=== PATIENT | male | born 1950 | race Caucasian/White ===

== ENCOUNTER 2016-09-15 16:28 | Emergency (ER) | payer OTHER ==
[~2016-09-15] VITALS: Ht 182.9 cm; Wt 120.2 kg
[2016-09-15 16:29] VITALS: BP 133/72
[2016-09-15] MEDS ORDERED: ATRO0.063 INH (16:46)
[2016-09-15] MEDS ORDERED: BUPR150T3 PO (16:46)
[2016-09-15] MEDS ORDERED: HYDR25TAB PO (16:46)
[2016-09-15] MEDS ORDERED: GLIP5TAB8 PO (16:46)
[2016-09-15] MEDS ORDERED: GABA-282 PO (16:46)
[2016-09-15] MEDS ORDERED: ASPI325T PO (16:46)
[2016-09-15] MEDS ORDERED: ATOR1TAB18 PO (16:46)
--- NOTE | 2016-09-15 19:50 | REPUSA ---
CT of the head Clinical history: injury. Technique: Multiple axial CT images were obtained through the head without administration of contrast . Findings: The ventricles and sulci are symmetric bilaterally. There is no evidence of acute hemorrhag e or infarct. There is no midline shift, mass effect, or extra-axial fluid collection. The osseous st ructures are unremarkable. The visualized paranasal sinuses and mastoid air cells are clear. Impression: Negative study.
== END 2016-09-15 22:37 | disposition left against medical advice (07) ==
LOC: M ED 18:41
DX: R47.81 Slurred speech (principal); R20.2 Paresthesia of skin

== ENCOUNTER → 2017-11-13 | Outpatient (CLI) | payer OTHER | LOC: M PLARAD 08:52 | DX: R47.1 Dysarthria and anarthria (principal); K11.7 Disturbances of salivary secretion | CPT/HCPCS: 70553 ==

== ENCOUNTER 2017-12-03 16:12 | Inpatient (IN) | payer OTHER ==
[2017-12-03 16:51] LABS: BASO # 0.1 10^3/uL (0.0-0.2); BASO % 0.6 % (0.0-1.0); EOS # 0.3 10^3/uL (0.0-0.50); HEMATOCRIT 45.3 % (42.0-52.0); HEMOGLOBIN 14.8 g/dl (13.5-17.5); IMMATURE GRANULOCYTE % 0.4 % (0-3.0); LYMPH # 1.8 10^3/uL (1.5-4.5); LYMPH % 18.2 % (24.0-44.0); MEAN CORPUSCULAR HEMOGLOBIN 27.3 pg (27.0-33.0); MEAN CORPUSCULAR HGB CONC 32.7 g/dl (32.0-36.5); MEAN CORPUSCULAR VOLUME 83.4 fl (80.0-96.0); MONO # 0.6 10^3/uL (0.0-0.8); MONO % 5.6 % (0.0-5.0); NEUTROPHILS # 7.2 10^3/uL (1.8-7.7); NEUTROPHILS % 72.2 % (36.0-66.0); PLATELET COUNT, AUTOMATED 164 10^3/uL (150-450); RED BLOOD COUNT 5.43 10^6/uL (4.30-6.10); RED CELL DISTRIBUTION WIDTH 14.7 % (11.5-14.5)
[2017-12-03] MEDS: METOPROLOL 5 MG/5 ML VIAL IV ×3 (17:10→17:21)
[2017-12-03 17:11] LABS: ALBUMIN 3.6 GM/DL (3.2-5.2); ALBUMIN/GLOBULIN RATIO 1.13 (1.00-1.93); ALKALINE PHOSPHATASE 52 U/L (45-117); ALT/SGPT 31 U/L (12-78); ANION GAP 11 MEQ/L (8-16); AST/SGOT 17 U/L (7-37); BILIRUBIN,DIRECT < 0.1 MG/DL (0.0-0.2); BILIRUBIN,TOTAL 0.3 MG/DL (0.2-1.0); BLOOD UREA NITROGEN 22 MG/DL (7-18); CALCIUM LEVEL 9.3 MG/DL (8.8-10.2); CARBON DIOXIDE LEVEL 26 MEQ/L (21-32); CHLORIDE LEVEL 104 MEQ/L (98-107); CPK CREATINE PHOSPHOKINASE 163 U/L (39-308); CREATININE FOR GFR 1.06 MG/DL (0.70-1.30); FREE T4 0.85 NG/DL (0.76-1.46); GLOMERULAR FILTRATION RATE > 60.0 (>49); GLUCOSE, FASTING 157 MG/DL (70-100); SODIUM LEVEL 141 MEQ/L (136-145); TOTAL PROTEIN 6.8 GM/DL (6.4-8.2); TROPONIN I < 0.02 NG/ML (< 0.10)
[2017-12-03 17:14] LABS: INR 1.01; PROTHROMBIN TIME 13.4 SECONDS (12.1-14.4)
[2017-12-03 17:15] LABS: PARTIAL THROMBOPLASTIN TIME 31.4 SECONDS (25.4-37.6)
[2017-12-03] MEDS: METOPROLOL TART 25 MG TABLET PO (17:39)
[2017-12-03 17:41] LABS: CK-MB VALUE MASS 3.2 NG/ML (<3.6); MB/CK RELATIVE INDEX 1.96 (< OR =4); NT-PRO BNP 208 PG/ML (<125); THYROID STIMULATING HORMONE 0.827 uIU/ML (0.358-3.740)
[2017-12-03] MEDS: DIGOXIN INJ 0.5 MG/2 ML AMP (J1160) IV (18:48)
[2017-12-03] MEDS ORDERED: GLUCOSE 4 GM CHEW TABLET PO (20:00)
[2017-12-03] MEDS ORDERED: ACETAMINOPHEN TAB 650MG DOSE (2X325MG) PO (20:00)
[2017-12-03] MEDS ORDERED: DEXTROSE 50% 50 ML SYRINGE IV (20:00)
[2017-12-03] MEDS ORDERED: ONDANSETRON 4MG/2ML VIAL (J2405) IV (20:00)
[2017-12-03] MEDS ORDERED: IPRATROPIUM 0.5MG/ALBUTEROL 2.5MG INH SOL UD 3ML (DUONEB)(J7620) NEB (20:00)
[2017-12-03] MEDS ORDERED: GLUCAGON FOR INJ 1 MG VIAL (J1610) SC (20:00)
[2017-12-03] MEDS: DOCUSATE SODIUM 100 MG CAP PO (21:00)
[2017-12-03] MEDS: APIXABAN 5 MG TAB (ELIQUIS) PO (21:00)
[2017-12-03] MEDS: HumaLOG INSULIN (NovoLOG) PER UNIT SC (21:00)
[2017-12-03 21:45] LABS: BEDSIDE GLUCOSE 144 MG/DL (80-115)
[2017-12-04] MEDS: LORazepam 2 MG/ML VIAL (J2060) IV (01:08)
[2017-12-04 02:23] LABS: CK-MB VALUE MASS 2.8 NG/ML (<3.6); CPK CREATINE PHOSPHOKINASE 162 U/L (39-308); MB/CK RELATIVE INDEX 1.72 (< OR =4); TROPONIN I < 0.02 NG/ML (< 0.10)
[2017-12-04 04:29] LABS: BASO # 0.1 10^3/uL (0.0-0.2); BASO % 0.8 % (0.0-1.0); EOS # 0.4 10^3/uL (0.0-0.50); EOS % 4.1 % (0.0-3.0); HEMATOCRIT 44.5 % (42.0-52.0); HEMOGLOBIN 14.5 g/dl (13.5-17.5); IMMATURE GRANULOCYTE % 0.4 % (0-3.0); LYMPH # 2.1 10^3/uL (1.5-4.5); LYMPH % 19.9 % (24.0-44.0); MEAN CORPUSCULAR HEMOGLOBIN 27.2 pg (27.0-33.0); MEAN CORPUSCULAR HGB CONC 32.6 g/dl (32.0-36.5); MEAN CORPUSCULAR VOLUME 83.5 fl (80.0-96.0); MONO # 0.7 10^3/uL (0.0-0.8); MONO % 7.1 % (0.0-5.0); NEUTROPHILS % 67.7 % (36.0-66.0); PLATELET COUNT, AUTOMATED 156 10^3/uL (150-450); RED BLOOD COUNT 5.33 10^6/uL (4.30-6.10); RED CELL DISTRIBUTION WIDTH 14.7 % (11.5-14.5); WHITE BLOOD COUNT 10.3 10^3/uL (4.0-10.0)
[2017-12-04 04:47] LABS: ANION GAP 7 MEQ/L (8-16); BLOOD UREA NITROGEN 22 MG/DL (7-18); CALCIUM LEVEL 9.2 MG/DL (8.8-10.2); CARBON DIOXIDE LEVEL 29 MEQ/L (21-32); CHLORIDE LEVEL 104 MEQ/L (98-107); CREATININE FOR GFR 0.98 MG/DL (0.70-1.30); GLOMERULAR FILTRATION RATE > 60.0 (>49); GLUCOSE, FASTING 140 MG/DL (70-100); SODIUM LEVEL 140 MEQ/L (136-145)
[2017-12-04] MEDS: ASPIRIN 325 MG TAB PO (08:02)
[2017-12-04] MEDS: DOCUSATE SODIUM 100 MG CAP PO (08:02)
[2017-12-04] MEDS: APIXABAN 5 MG TAB (ELIQUIS) PO (08:02)
[2017-12-04] MEDS: METOPROLOL TART 25 MG TABLET PO (08:03)
[2017-12-04] MEDS: hydroCHLOROthiazide 25 MG TAB PO (08:03)
[2017-12-04] MEDS: HumaLOG INSULIN (NovoLOG) PER UNIT SC (08:03)
[2017-12-04 10:12] LABS: CK-MB VALUE MASS 2.4 NG/ML (<3.6); CPK CREATINE PHOSPHOKINASE 158 U/L (39-308); MB/CK RELATIVE INDEX 1.51 (< OR =4); TROPONIN I < 0.02 NG/ML (< 0.10)
== END 2017-12-04 11:30 | disposition home or self-care (01) | DRG 310 ==
LOC: M ED 16:12 → M ED INP 19:54 → M ICU 21:26
DX: I48.91 Unspecified atrial fibrillation (principal); J44.9 Chronic obstructive pulmonary disease, unspecified; E11.9 Type 2 diabetes mellitus without complications; E66.9 Obesity, unspecified; I10 Essential (primary) hypertension; Z79.82 Long term (current) use of aspirin; Z79.84 Long term (current) use of oral hypoglycemic drugs; Z79.899 Other long term (current) drug therapy; Z87.891 Personal history of nicotine dependence; Z68.38 Body mass index [BMI] 38.0-38.9, adult

== ENCOUNTER 2017-12-05 18:06 | Inpatient (IN) | payer OTHER ==
[2017-12-05 18:36] LABS: BASO # 0.1 10^3/uL (0.0-0.2); BASO % 0.5 % (0.0-1.0); EOS # 0.2 10^3/uL (0.0-0.50); EOS % 2.2 % (0.0-3.0); HEMATOCRIT 45.7 % (42.0-52.0); IMMATURE GRANULOCYTE % 0.4 % (0-3.0); LYMPH # 1.9 10^3/uL (1.5-4.5); MEAN CORPUSCULAR HEMOGLOBIN 27.5 pg (27.0-33.0); MEAN CORPUSCULAR HGB CONC 32.8 g/dl (32.0-36.5); MEAN CORPUSCULAR VOLUME 83.7 fl (80.0-96.0); MONO # 0.6 10^3/uL (0.0-0.8); MONO % 6.1 % (0.0-5.0); NEUTROPHILS # 7.6 10^3/uL (1.8-7.7); NEUTROPHILS % 72.8 % (36.0-66.0); PLATELET COUNT, AUTOMATED 169 10^3/uL (150-450); RED BLOOD COUNT 5.46 10^6/uL (4.30-6.10); RED CELL DISTRIBUTION WIDTH 14.8 % (11.5-14.5); WHITE BLOOD COUNT 10.4 10^3/uL (4.0-10.0)
[2017-12-05 18:46] LABS: BEDSIDE GLUCOSE 144 MG/DL (80-115)
[2017-12-05] MEDS ORDERED: HALOPERIDOL 5 MG/ML VIAL (J1630) IV (19:00)
[2017-12-05 19:04] LABS: ALBUMIN 3.7 GM/DL (3.2-5.2); ALBUMIN/GLOBULIN RATIO 1.12 (1.00-1.93); ALKALINE PHOSPHATASE 50 U/L (45-117); ALT/SGPT 34 U/L (12-78); ANION GAP 10 MEQ/L (8-16); AST/SGOT 21 U/L (7-37); BILIRUBIN,DIRECT < 0.1 MG/DL (0.0-0.2); BILIRUBIN,TOTAL 0.3 MG/DL (0.2-1.0); BLOOD UREA NITROGEN 22 MG/DL (7-18); CALCIUM LEVEL 8.9 MG/DL (8.8-10.2); CARBON DIOXIDE LEVEL 26 MEQ/L (21-32); CHLORIDE LEVEL 106 MEQ/L (98-107); CPK CREATINE PHOSPHOKINASE 227 U/L (39-308); CREATININE FOR GFR 1.19 MG/DL (0.70-1.30); GLOMERULAR FILTRATION RATE > 60.0 (>49); GLUCOSE, FASTING 149 MG/DL (70-100); LIPASE 127 U/L (73-393); SODIUM LEVEL 142 MEQ/L (136-145); TROPONIN I < 0.02 NG/ML (< 0.10)
[2017-12-05 19:05] LABS: CK-MB VALUE MASS 3.4 NG/ML (<3.6); MB/CK RELATIVE INDEX 1.49 (< OR =4); NT-PRO BNP 475 PG/ML (<125)
[2017-12-05] MEDS: METOPROLOL 5 MG/5 ML VIAL IV ×3 (19:16→19:35)
[2017-12-05] MEDS: HALOPERIDOL 5 MG TAB PO (19:21)
[2017-12-05] MEDS: NS 500 ML IV (20:21)
[2017-12-05] MEDS: METOPROLOL TART 25 MG TABLET PO (20:24)
[2017-12-05] MEDS: DIGOXIN INJ 0.5 MG/2 ML AMP (J1160) IV ×2 (20:24→20:30)
[2017-12-06] MEDS ORDERED: ONDANSETRON 4 MG TAB (S0181) PO (00:30)
[2017-12-06] MEDS ORDERED: BISACODYL 5 MG TAB PO (00:30)
[2017-12-06] MEDS ORDERED: IPRATROPIUM 0.02% SOLN 0.5MG/2.5 ML NEB INH (00:30)
[2017-12-06] MEDS ORDERED: ALBUTEROL SULFATE 2.5 MG/0.5 ML INH NEB SOLN NEB (00:30)
[2017-12-06] MEDS ORDERED: ACETAMINOPHEN TAB 650MG DOSE (2X325MG) PO (00:30)
[2017-12-06] MEDS: METOPROLOL TART 25 MG TABLET PO ×3 (01:12→20:37)
[2017-12-06] MEDS: APIXABAN 5 MG TAB (ELIQUIS) PO ×3 (01:13→20:36)
[2017-12-06] MEDS: QUEtiapine FUMARATE 25 MG TAB PO (01:13)
[2017-12-06] MEDS: FUROSEMIDE 40 MG/4 ML VIAL (J1940) IV ×2 (01:13→08:17)
[2017-12-06] MEDS: DOCUSATE SODIUM 100 MG CAP PO ×3 (01:13→20:36)
[2017-12-06] MEDS ORDERED: GLUCAGON FOR INJ 1 MG VIAL (J1610) SC (01:30)
[2017-12-06] MEDS ORDERED: DEXTROSE 50% 50 ML SYRINGE IV (01:30)
[2017-12-06] MEDS ORDERED: GLUCOSE 4 GM CHEW TABLET PO (01:30)
[2017-12-06 06:27] LABS: BASO # 0.1 10^3/uL (0.0-0.2); BASO % 0.7 % (0.0-1.0); EOS # 0.3 10^3/uL (0.0-0.50); EOS % 2.9 % (0.0-3.0); HEMATOCRIT 44.9 % (42.0-52.0); HEMOGLOBIN 14.9 g/dl (13.5-17.5); IMMATURE GRANULOCYTE % 0.2 % (0-3.0); LYMPH # 2.3 10^3/uL (1.5-4.5); LYMPH % 22.7 % (24.0-44.0); MEAN CORPUSCULAR HEMOGLOBIN 27.5 pg (27.0-33.0); MEAN CORPUSCULAR HGB CONC 33.2 g/dl (32.0-36.5); MONO # 0.7 10^3/uL (0.0-0.8); MONO % 6.9 % (0.0-5.0); NEUTROPHILS # 6.7 10^3/uL (1.8-7.7); NEUTROPHILS % 66.6 % (36.0-66.0); PLATELET COUNT, AUTOMATED 161 10^3/uL (150-450); RED BLOOD COUNT 5.41 10^6/uL (4.30-6.10); WHITE BLOOD COUNT 10.1 10^3/uL (4.0-10.0)
[2017-12-06 06:50] LABS: ANION GAP 10 MEQ/L (8-16); BLOOD UREA NITROGEN 24 MG/DL (7-18); CALCIUM LEVEL 8.8 MG/DL (8.8-10.2); CARBON DIOXIDE LEVEL 26 MEQ/L (21-32); CHLORIDE LEVEL 108 MEQ/L (98-107); CREATININE FOR GFR 1.17 MG/DL (0.70-1.30); GLOMERULAR FILTRATION RATE > 60.0 (>49); GLUCOSE, FASTING 144 MG/DL (70-100); POTASSIUM SERUM 4.1 MEQ/L (3.5-5.1); SODIUM LEVEL 144 MEQ/L (136-145)
[2017-12-06] MEDS: VITAMIN B COMPLEX/VIT C CAP PO (08:18)
[2017-12-06] MEDS: ASPIRIN 325 MG TAB PO (08:18)
[2017-12-06] MEDS: hydroCHLOROthiazide 25 MG TAB PO (08:18)
[2017-12-06] MEDS: HumaLOG INSULIN (NovoLOG) PER UNIT SC ×3 (08:19→17:30)
[2017-12-06 12:15] LABS: BEDSIDE GLUCOSE 113 MG/DL (80-115)
[2017-12-06 16:55] LABS: BEDSIDE GLUCOSE 109 MG/DL (80-115)
[2017-12-06 20:30] LABS: BEDSIDE GLUCOSE 179 MG/DL (80-115)
[2017-12-07 05:32] LABS: HEMATOCRIT 45.2 % (42.0-52.0); HEMOGLOBIN 14.7 g/dl (13.5-17.5); MEAN CORPUSCULAR HEMOGLOBIN 27.5 pg (27.0-33.0); MEAN CORPUSCULAR HGB CONC 32.5 g/dl (32.0-36.5); MEAN CORPUSCULAR VOLUME 84.6 fl (80.0-96.0); PLATELET COUNT, AUTOMATED 157 10^3/uL (150-450); RED BLOOD COUNT 5.34 10^6/uL (4.30-6.10); RED CELL DISTRIBUTION WIDTH 15.2 % (11.5-14.5); WHITE BLOOD COUNT 9.8 10^3/uL (4.0-10.0)
[2017-12-07 05:46] LABS: ANION GAP 8 MEQ/L (8-16); BLOOD UREA NITROGEN 30 MG/DL (7-18); CALCIUM LEVEL 9.7 MG/DL (8.8-10.2); CARBON DIOXIDE LEVEL 30 MEQ/L (21-32); CHLORIDE LEVEL 103 MEQ/L (98-107); CREATININE FOR GFR 1.39 MG/DL (0.70-1.30); GLOMERULAR FILTRATION RATE 54.3 (>49); GLUCOSE, FASTING 133 MG/DL (70-100); POTASSIUM SERUM 4.2 MEQ/L (3.5-5.1); SODIUM LEVEL 141 MEQ/L (136-145)
[2017-12-07] MEDS: DOCUSATE SODIUM 100 MG CAP PO (08:25)
[2017-12-07] MEDS: ASPIRIN 325 MG TAB PO (08:26)
[2017-12-07] MEDS: FUROSEMIDE 20 MG TAB PO (08:26)
[2017-12-07] MEDS: HumaLOG INSULIN (NovoLOG) PER UNIT SC (08:26)
[2017-12-07] MEDS: METOPROLOL TART 25 MG TABLET PO (08:26)
[2017-12-07] MEDS: APIXABAN 5 MG TAB (ELIQUIS) PO (08:26)
[2017-12-07] MEDS: VITAMIN B COMPLEX/VIT C CAP PO (08:26)
== END 2017-12-07 12:00 | disposition home or self-care (01) | DRG 310 ==
LOC: M ED INP 12-06 00:27 → M PCU 12-06 00:55 → M ED 18:06
DX: I48.91 Unspecified atrial fibrillation (principal); J44.9 Chronic obstructive pulmonary disease, unspecified; E11.9 Type 2 diabetes mellitus without complications; I10 Essential (primary) hypertension; Z79.82 Long term (current) use of aspirin; Z79.84 Long term (current) use of oral hypoglycemic drugs; Z79.899 Other long term (current) drug therapy; Z87.891 Personal history of nicotine dependence; D72.829 Elevated white blood cell count, unspecified; Z88.8 Allergy status to other drugs, medicaments and biological substances

== ENCOUNTER 2017-12-21 18:01 | Emergency (ER) | payer OTHER ==
[2017-12-21 19:25] LABS: BASO # 0.1 10^3/uL (0.0-0.2); BASO % 0.6 % (0.0-1.0); EOS # 0.3 10^3/uL (0.0-0.50); EOS % 2.7 % (0.0-3.0); HEMATOCRIT 43.6 % (42.0-52.0); HEMOGLOBIN 14.3 g/dl (13.5-17.5); IMMATURE GRANULOCYTE % 0.4 % (0-3.0); LYMPH # 1.5 10^3/uL (1.5-4.5); MEAN CORPUSCULAR HEMOGLOBIN 27.2 pg (27.0-33.0); MEAN CORPUSCULAR HGB CONC 32.8 g/dl (32.0-36.5); MEAN CORPUSCULAR VOLUME 82.9 fl (80.0-96.0); MONO # 0.5 10^3/uL (0.0-0.8); MONO % 4.7 % (0.0-5.0); NEUTROPHILS # 7.5 10^3/uL (1.8-7.7); NEUTROPHILS % 76.6 % (36.0-66.0); PLATELET COUNT, AUTOMATED 155 10^3/uL (150-450); RED BLOOD COUNT 5.26 10^6/uL (4.30-6.10); RED CELL DISTRIBUTION WIDTH 14.8 % (11.5-14.5); WHITE BLOOD COUNT 9.8 10^3/uL (4.0-10.0)
[2017-12-21 19:36] LABS: INR 1.07
[2017-12-21 19:51] LABS: ALBUMIN 3.5 GM/DL (3.2-5.2); ALBUMIN/GLOBULIN RATIO 0.92 (1.00-1.93); ALKALINE PHOSPHATASE 59 U/L (45-117); ALT/SGPT 37 U/L (12-78); ANION GAP 9 MEQ/L (8-16); AST/SGOT 24 U/L (7-37); BILIRUBIN,DIRECT < 0.1 MG/DL (0.0-0.2); BILIRUBIN,TOTAL 0.4 MG/DL (0.2-1.0); BLOOD UREA NITROGEN 26 MG/DL (7-18); CALCIUM LEVEL 9.4 MG/DL (8.8-10.2); CARBON DIOXIDE LEVEL 27 MEQ/L (21-32); CHLORIDE LEVEL 105 MEQ/L (98-107); CPK CREATINE PHOSPHOKINASE 187 U/L (39-308); CREATININE FOR GFR 1.24 MG/DL (0.70-1.30); GLOMERULAR FILTRATION RATE > 60.0 (>49); GLUCOSE, FASTING 206 MG/DL (70-100); POTASSIUM SERUM 3.8 MEQ/L (3.5-5.1); SODIUM LEVEL 141 MEQ/L (136-145); TOTAL PROTEIN 7.3 GM/DL (6.4-8.2); TROPONIN I < 0.02 NG/ML (< 0.10)
[2017-12-21 19:56] LABS: CK-MB VALUE MASS 3.6 NG/ML (<3.6); MB/CK RELATIVE INDEX 1.92 (< OR =4); NT-PRO BNP 191 PG/ML (<125); THYROID STIMULATING HORMONE 0.591 uIU/ML (0.358-3.740)
[2017-12-21] MEDS: IPRATROPIUM 0.5MG/ALBUTEROL 2.5MG INH SOL UD 3ML (DUONEB)(J7620) NEB (22:31)
[2017-12-21 22:35] LABS: CK-MB VALUE MASS 3.5 NG/ML (<3.6); CPK CREATINE PHOSPHOKINASE 189 U/L (39-308); MB/CK RELATIVE INDEX 1.85 (< OR =4); TROPONIN I < 0.02 NG/ML (< 0.10)
== END 2017-12-21 23:24 | disposition home or self-care (01) ==
LOC: M ED 18:01
DX: R07.89 Other chest pain (principal); R06.02 Shortness of breath; I45.10 Unspecified right bundle-branch block; Z79.82 Long term (current) use of aspirin; Z79.01 Long term (current) use of anticoagulants; Z79.899 Other long term (current) drug therapy; Z88.8 Allergy status to other drugs, medicaments and biological substances
CPT/HCPCS: 71045

== ENCOUNTER 2018-01-30 15:27 | Emergency (ER) | payer OTHER ==
[2018-01-30 15:58] LABS: BASO # 0.1 10^3/uL (0.0-0.2); BASO % 0.6 % (0.0-1.0); EOS # 0.3 10^3/uL (0.0-0.50); EOS % 3.5 % (0.0-3.0); HEMATOCRIT 42.3 % (42.0-52.0); HEMOGLOBIN 13.6 g/dl (13.5-17.5); IMMATURE GRANULOCYTE % 0.4 % (0-3.0); LYMPH # 1.7 10^3/uL (1.5-4.5); LYMPH % 19.8 % (24.0-44.0); MEAN CORPUSCULAR HEMOGLOBIN 27.3 pg (27.0-33.0); MEAN CORPUSCULAR HGB CONC 32.2 g/dl (32.0-36.5); MEAN CORPUSCULAR VOLUME 84.9 fl (80.0-96.0); MONO # 0.5 10^3/uL (0.0-0.8); MONO % 6.5 % (0.0-5.0); NEUTROPHILS # 5.8 10^3/uL (1.8-7.7); NEUTROPHILS % 69.2 % (36.0-66.0); PLATELET COUNT, AUTOMATED 149 10^3/uL (150-450); RED BLOOD COUNT 4.98 10^6/uL (4.30-6.10); RED CELL DISTRIBUTION WIDTH 15.9 % (11.5-14.5); WHITE BLOOD COUNT 8.3 10^3/uL (4.0-10.0)
[2018-01-30 16:11] LABS: PROTHROMBIN TIME 13.3 SECONDS (12.1-14.4)
[2018-01-30] MEDS: SUCRALFATE SUSP 1GM/10ML UD PO (16:16)
[2018-01-30 16:20] LABS: ALBUMIN 3.4 GM/DL (3.2-5.2); ALBUMIN/GLOBULIN RATIO 0.87 (1.00-1.93); ALKALINE PHOSPHATASE 47 U/L (45-117); ALT/SGPT 32 U/L (12-78); ANION GAP 9 MEQ/L (8-16); AST/SGOT 19 U/L (7-37); BILIRUBIN,DIRECT < 0.1 MG/DL (0.0-0.2); BILIRUBIN,TOTAL 0.2 MG/DL (0.2-1.0); BLOOD UREA NITROGEN 26 MG/DL (7-18); CALCIUM LEVEL 9.3 MG/DL (8.8-10.2); CARBON DIOXIDE LEVEL 26 MEQ/L (21-32); CHLORIDE LEVEL 108 MEQ/L (98-107); CPK CREATINE PHOSPHOKINASE 163 U/L (39-308); CREATININE FOR GFR 1.21 MG/DL (0.70-1.30); GLOMERULAR FILTRATION RATE > 60.0 (>49); GLUCOSE, FASTING 91 MG/DL (70-100); POTASSIUM SERUM 4.1 MEQ/L (3.5-5.1); SODIUM LEVEL 143 MEQ/L (136-145); TOTAL PROTEIN 7.3 GM/DL (6.4-8.2); TROPONIN I < 0.02 NG/ML (< 0.10)
[2018-01-30 16:26] LABS: CK-MB VALUE MASS 2.8 NG/ML (<3.6); MB/CK RELATIVE INDEX 1.71 (< OR =4); NT-PRO BNP 353 PG/ML (<125); THYROID STIMULATING HORMONE 0.788 uIU/ML (0.358-3.740)
[2018-01-30] MEDS ORDERED: ISOVUE-370 76% 100ML VIAL (Q9967) As Ordered (17:16)
[2018-01-30 18:43] LABS: CK-MB VALUE MASS 2.9 NG/ML (<3.6); CPK CREATINE PHOSPHOKINASE 154 U/L (39-308); MB/CK RELATIVE INDEX 1.88 (< OR =4); TROPONIN I < 0.02 NG/ML (< 0.10)
== END 2018-01-30 19:05 | disposition home or self-care (01) ==
LOC: M ED 15:27
DX: R07.9 Chest pain, unspecified (principal); R06.02 Shortness of breath; I45.19 Other right bundle-branch block; J44.9 Chronic obstructive pulmonary disease, unspecified; I10 Essential (primary) hypertension; E11.9 Type 2 diabetes mellitus without complications; E78.5 Hyperlipidemia, unspecified; Z79.899 Other long term (current) drug therapy; Z79.82 Long term (current) use of aspirin; Z79.01 Long term (current) use of anticoagulants; Z88.8 Allergy status to other drugs, medicaments and biological substances; Z87.891 Personal history of nicotine dependence
CPT/HCPCS: 71045

== ENCOUNTER 2018-12-07 15:06 | Emergency (ER) | payer OTHER ==
[~2018-12-07 15:06] MED LIST: ALBU83IN INH; ALBU83IN NEB; ASPI-1 PO; ATOR80TA59 PO; ATRO0.063 INH; B CO1TAB3 PO; B COTAB3 PO; B-COTAB26 PO; BUPR150T3 PO; CETI10TA PO; COLA100C5 PO; ELIQ5TAB PO; FURO40TA2 PO; GABA-843 PO; GLIP5TAB8 PO; HYDR25TAB PO; HYDR50TAB PO; KEFL500C17 PO; METO1TAB87 PO; METO25TA4 PO; MIRA3350 PO; MM S100C PO; NICODIS2 TD; PATIENT COMMENTS; SENN8.6T17 PO; TRAZ-252 PO; TRAZ1TAB10 PO; VITA50005 PO
[2018-12-07 15:31] VITALS: BP 129/77
== END 2018-12-07 16:21 | disposition home or self-care (01) ==
LOC: M ED 15:06
DX: F03.90 Unspecified dementia, unspecified severity, without behavioral disturbance, psychotic disturbance, mood disturbance, and anxiety (principal); Z63.0 Problems in relationship with spouse or partner; I10 Essential (primary) hypertension; E78.9 Disorder of lipoprotein metabolism, unspecified; Z88.8 Allergy status to other drugs, medicaments and biological substances; Z79.899 Other long term (current) drug therapy; Z79.82 Long term (current) use of aspirin

== ENCOUNTER 2019-05-23 14:17 | Inpatient (IN) | payer OTHER ==
[~2019-05-23] VITALS: Ht 175.3 cm; Wt 118.8 kg
[2019-05-23] MEDS ORDERED: IPRATROPIUM 0.5MG/ALBUTEROL 2.5MG INH SOL UD 3ML (DUONEB)(J7620) NEB ONE (15:00)
[2019-05-23] MEDS ORDERED: dexameTHASONE 20 MG/5 ML VIAL (J1100) IV ONE (15:00)
[2019-05-23] MEDS ORDERED: ALBUTEROL SULFATE 2.5 MG/0.5 ML INH NEB SOLN INH ONE (15:00)
--- NOTE | 2019-05-23 15:19 | REP ---
SINGLE VIEW CHEST: Single view of the chest is performed and compared to a prior study of 02/12/2018. There is mild cardiomegaly. There is mild chronic stable interstitial prominence with no new infiltrate. The mediastinal silhouette is unchanged. IMPRESSION: No acute pulmonary disease. Electronically Signed by Konstantin Olvera MD 05/24/2019 04:34 P
[2019-05-23 15:29] LABS: BASO # 0.1 10^3/uL (0.0-0.2); EOS # 0.2 10^3/uL (0.0-0.5); EOS % 2.4 % (0.0-3.0); HEMATOCRIT 43.8 % (42.0-52.0); HEMOGLOBIN 13.8 g/dl (13.5-17.5); LYMPH # 1.1 10^3/uL (1.5-5.0); MEAN CORPUSCULAR HEMOGLOBIN 27.1 pg (27.0-33.0); MEAN CORPUSCULAR HGB CONC 31.5 g/dl (32.0-36.5); MEAN CORPUSCULAR VOLUME 86.1 fl (80.0-96.0); MONO # 0.5 10^3/uL (0.0-0.8); MONO % 5.6 % (0.0-5.0); NEUTROPHILS # 6.2 10^3/uL (1.5-8.5); NEUTROPHILS % 76.6 % (36.0-66.0); PLATELET COUNT, AUTOMATED 141 10^3/uL (150-450); RED BLOOD COUNT 5.09 10^6/uL (4.30-6.10); WHITE BLOOD COUNT 8.1 10^3/uL (4.0-10.0)
[2019-05-23 15:42] LABS: INR 1.05; PROTHROMBIN TIME 13.4 SECONDS (11.8-14.0)
[2019-05-23 15:49] LABS: INFLUENZA A AMPLIFICATION NEGATIVE (NEGATIVE); INFLUENZA B AMPLIFICATION NEGATIVE (NEGATIVE)
[2019-05-23 16:03] LABS: ALBUMIN 3.5 GM/DL (3.2-5.2); ALT/SGPT 33 U/L (12-78); BILIRUBIN,DIRECT 0.1 MG/DL (0.0-0.2); BILIRUBIN,TOTAL 0.5 MG/DL (0.2-1.0); BLOOD UREA NITROGEN 18 MG/DL (7-18); CALCIUM LEVEL 9.4 MG/DL (8.8-10.2); CARBON DIOXIDE LEVEL 29 MEQ/L (21-32); CHLORIDE LEVEL 101 MEQ/L (98-107); CK-MB VALUE MASS 2.5 NG/ML (<3.6); CPK CREATINE PHOSPHOKINASE 89 U/L (39-308); CREATININE FOR GFR 1.35 MG/DL (0.70-1.30); GLUCOSE, FASTING 174 MG/DL (70-100); MB/CK RELATIVE INDEX 2.81 (< OR =4); NT-PRO BNP 186 PG/ML (<125); POTASSIUM SERUM 4.4 MEQ/L (3.5-5.1); SODIUM LEVEL 138 MEQ/L (136-145); THYROXINE (T4) 9.1 UG/DL (4.5-12.0); TROPONIN I < 0.02 NG/ML (< 0.10)
[2019-05-23] MEDS ORDERED: B-COTAB10 PO (18:26)
[2019-05-23] MEDS ORDERED: HYDR25TAB PO (18:26)
[2019-05-23] MEDS ORDERED: VITA100066 PO (18:29)
[2019-05-23] MEDS ORDERED: ASCO500T PO (18:29)
[2019-05-23] MEDS ORDERED: HYDR1CRE95 TOP (18:29)
[2019-05-23] MEDS ORDERED: FLUO5OI TOP (18:29)
[2019-05-23] MEDS ORDERED: KETO2CR TOP (18:29)
[2019-05-23] MEDS ORDERED: DEXTROSE 50% 50 ML SYRINGE IV PRN (20:15)
[2019-05-23] MEDS ORDERED: GLUCOSE 4 GM CHEW TABLET PO PRN (20:15)
[2019-05-23] MEDS ORDERED: GLUCAGON FOR INJ 1 MG VIAL (J1610) SC PRN (20:15)
[2019-05-23] MEDS: HumaLOG INSULIN (NovoLOG) PER UNIT SC SCH (21:00)
[2019-05-23] MEDS: METOPROLOL TART 25 MG TABLET PO SCH (21:00)
[2019-05-23 22:00] VITALS: BP 105/68
[2019-05-23] MEDS: HEPARIN SOD (PORCINE) 5000 UNITS/ML VIAL SQ SCH (22:25)
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
[2019-05-24] MEDS: IPRATROPIUM 0.5MG/ALBUTEROL 2.5MG INH SOL UD 3ML (DUONEB)(J7620) NEB PRN ×3 (02:53→16:22)
[2019-05-24 06:00] VITALS: BP 106/68
[2019-05-24 06:52] LABS: HEMATOCRIT 44.6 % (42.0-52.0); HEMOGLOBIN 13.9 g/dl (13.5-17.5); MEAN CORPUSCULAR HEMOGLOBIN 26.2 pg (27.0-33.0); MEAN CORPUSCULAR HGB CONC 31.2 g/dl (32.0-36.5); MEAN CORPUSCULAR VOLUME 84.2 fl (80.0-96.0); PLATELET COUNT, AUTOMATED 155 10^3/uL (150-450); WHITE BLOOD COUNT 7.8 10^3/uL (4.0-10.0)
[2019-05-24 07:19] LABS: BLOOD UREA NITROGEN 18 MG/DL (7-18); CALCIUM LEVEL 9.6 MG/DL (8.8-10.2); CARBON DIOXIDE LEVEL 26 MEQ/L (21-32); CHLORIDE LEVEL 104 MEQ/L (98-107); CREATININE FOR GFR 1.04 MG/DL (0.70-1.30); GLOMERULAR FILTRATION RATE > 60.0 (>49); GLUCOSE, FASTING 154 MG/DL (70-100); MAGNESIUM LEVEL 2.2 MG/DL (1.8-2.4); SODIUM LEVEL 138 MEQ/L (136-145)
[2019-05-24] MEDS: HumaLOG INSULIN (NovoLOG) PER UNIT SC SCH ×5 (07:30→20:39)
[2019-05-24] MEDS: HEPARIN SOD (PORCINE) 5000 UNITS/ML VIAL SQ SCH ×2 (08:05→20:38)
[2019-05-24] MEDS: KETOCONAZOLE 2% CREAM TOP SCH (08:05)
[2019-05-24] MEDS: ASCORBIC ACID 500 MG TAB PO SCH (08:05)
[2019-05-24] MEDS: ASPIRIN 325 MG TAB PO SCH (08:06)
[2019-05-24] MEDS: VITAMIN D 1,000 INTERNATIONAL UNITS TABLET PO SCH (08:06)
[2019-05-24] MEDS: CETIRIZINE (ZyrTEC) 10 MG TAB PO SCH (08:07)
[2019-05-24] MEDS: hydroCHLOROthiazide 25 MG TAB PO SCH (08:07)
[2019-05-24] MEDS: METOPROLOL TART 25 MG TABLET PO SCH ×2 (08:12→20:38)
--- NOTE | 2019-05-24 08:29 | REP ---
CT brain: 05/23/2019. Indication: Encephalopathy. Comparison: 11/13/2017. Technique: Unenhanced axial CT images of the brain were obtained from skull base to vertex with coronal reconstructions provided. Findings: There is no acute intracranial hemorrhage, acute cortical infarction, mass effect or hydrocephalous. Volume loss is present. There are a few small patchy areas of cerebral white matter hypoattenuation. Impression: No acute intracranial process. Volume loss and mild sequelae of chronic microangiopathic ischemic disease. Electronically Signed by Florentino Zuñiga DO 05/24/2019 08:21 A
[2019-05-24 09:23] LABS: HEMOGLOBIN A1c 7.2 %
--- NOTE | 2019-05-24 09:29 | IPN ---
DATE: 05/24/2019 PRIMARY CARE PROVIDER: Magan was seen on [address] [facility] rounding for the hospitalist. He was admitted for altered mental status/encephalopathy. Apparently he was nonverbal when he came to the emergency room and was admitted. He is now back to what looks to be his baseline mental status. I have reviewed available hospital records. The patient is significantly dysarthric. He does communicate often by writing things down and this looks like it is the same as it was back in February 2018 when he had an inpatient mental health admission, so I do not think that is any different. Apparently he stopped taking his medications. His history is significant for chronic obstructive pulmonary disease (COPD), type 2 diabetes, hypertension, atrial fibrillation. He is not on anticoagulant. He lives at home with his . PHYSICAL EXAMINATION: He is quite dysarthric, but you can understand what he says with some effort. Neck supple. No facial droop or weakness. Lungs clear. Heart regular rhythm without murmur. Abdomen soft, nontender, no masses. Trace peripheral edema. Venous stasis dermatitis. Acanthosis of the lower extremities noted. LABORATORIES: CBC unremarkable. CMP unremarkable. Flu screen negative. CT of the head unremarkable. Chest x-ray unremarkable. IMPRESSION: 1. Encephalopathy, etiology unknown. I am not sure what happened here. He was reportedly nonverbal in the emergency room. He is verbal now, maybe he had a hypoglycemic even, it is hard to say. 2. Social situation. Apparently there are some social issues at play from the history and physical, and will defer to patient and family services (PFS) on this. 3. Chronic Atrial fibrillation. His rate is controlled. He is on aspirin. He is not anticoagulated. Apparently at one point he was on Eliquis which would be a poor choice for somebody with intermittent compliance. 4. Hypertension. He is on hydrochlorothiazide which we will continue. 5. Chronic obstructive pulmonary disease (COPD). Continue nebulized bronchodilator. 6. Diabetes. Sliding scale insulin coverage for now. Apparently he is on oral agent at home with glipizide 5 mg twice a day, will probably put him on a lower dose of this in the hospital in the next few days while he is on an enforced diabetic diet. I ordered a hemoglobin A1c, B12, folate, RPR. This looks to be primarily a social/halfway admission. [facility]
[2019-05-24 10:45] LABS: FOLATE > 24.0 NG/ML (>5.4); VITAMIN B12 LEVEL 618 PG/ML (247-911)
[2019-05-24] MEDS ORDERED: DIGOXIN INJ 0.5 MG/2 ML AMP (J1160) IV STA (10:58)
[2019-05-24 12:15] VITALS: BP 122/59
[2019-05-24 12:16] LABS: CK-MB VALUE MASS 3.6 NG/ML (<3.6); CPK CREATINE PHOSPHOKINASE 134 U/L (39-308); MB/CK RELATIVE INDEX 2.69 (< OR =4); TROPONIN I < 0.02 NG/ML (< 0.10)
[2019-05-24 16:00] VITALS: BP 158/72
--- NOTE | 2019-05-24 17:54 | ECGEPIP ---
[facility] Test Date: 2019-05-24 Pat Name: MALIA RUANO Department: Room: [place] [address] Gender: Male Aba Therapist: PIA : 1950 Requested By: Con Singh Order Number: [id number] Reading MD: Malia Trujillo Measurements Intervals [place] Rate: 87 P: 53 ME: 148 QRS: -40 QRSD: 142 T: 46 QT: 383 QTc: 461 Interpretive Statements Somatic artifact Normal sinus rhythm. Isolated PAC LA conduction disturbance? Left axis deviation - left anterior hemiblock Right bundle branch block Less atrial ectopy from 05/23/19. Electronically Signed on 05-24-2019 17:54:30 EST by Malia Trujillo
[2019-05-24 19:50] LABS: CK-MB VALUE MASS 4.4 NG/ML (<3.6); MB/CK RELATIVE INDEX 2.62 (< OR =4); TROPONIN I 0.02 NG/ML (< 0.10)
[2019-05-24 20:00] VITALS: BP 144/78
--- NOTE | 2019-05-24 22:26 | ECGEPIP ---
[facility] - ED Test Date: 2019-05-23 Pat Name: MALIA RUANO Department: Room: - Gender: Male [employer] Attendant: : 1950 Requested By: BEST Pratt Order Number: [id number] Reading MD: Best Liu Measurements Intervals [place] Rate: 77 P: 70 WI: 143 QRS: -42 QRSD: 134 T: 28 QT: 389 QTc: 442 Interpretive Statements Sinus arrhythmia MARKED LEFT AXIS DEVIATION RIGHT BUNDLE BRANCH BLOCK Baseline artifact Similar to tracing done 02-12-18 Electronically Signed on 05-24-2019 22:25:51 EST by Best Liu
[2019-05-25] VITALS: BP 120/62
[2019-05-25 04:00] VITALS: BP 120/70
[2019-05-25] MEDS: IPRATROPIUM 0.5MG/ALBUTEROL 2.5MG INH SOL UD 3ML (DUONEB)(J7620) NEB PRN ×3 (04:00→21:17)
[2019-05-25 05:30] LABS: HEMATOCRIT 42.4 % (42.0-52.0); HEMOGLOBIN 13.6 g/dl (13.5-17.5); MEAN CORPUSCULAR HGB CONC 32.1 g/dl (32.0-36.5); MEAN CORPUSCULAR VOLUME 84.3 fl (80.0-96.0); PLATELET COUNT, AUTOMATED 157 10^3/uL (150-450); RED BLOOD COUNT 5.03 10^6/uL (4.30-6.10); WHITE BLOOD COUNT 10.2 10^3/uL (4.0-10.0)
[2019-05-25 05:51] LABS: BLOOD UREA NITROGEN 24 MG/DL (7-18); CALCIUM LEVEL 9.4 MG/DL (8.8-10.2); CARBON DIOXIDE LEVEL 26 MEQ/L (21-32); CHLORIDE LEVEL 101 MEQ/L (98-107); CREATININE FOR GFR 1.18 MG/DL (0.70-1.30); GLOMERULAR FILTRATION RATE > 60.0 (>49); GLUCOSE, FASTING 107 MG/DL (70-100); POTASSIUM SERUM 3.8 MEQ/L (3.5-5.1); SODIUM LEVEL 138 MEQ/L (136-145)
[2019-05-25 08:00] VITALS: BP 143/71
[2019-05-25] MEDS: HEPARIN SOD (PORCINE) 5000 UNITS/ML VIAL SQ SCH ×3 (09:00→21:04)
[2019-05-25] MEDS: HumaLOG INSULIN (NovoLOG) PER UNIT SC SCH (09:16)
[2019-05-25] MEDS: VITAMIN D 1,000 INTERNATIONAL UNITS TABLET PO SCH (09:16)
[2019-05-25] MEDS: CETIRIZINE (ZyrTEC) 10 MG TAB PO SCH (09:16)
[2019-05-25] MEDS: ASPIRIN 325 MG TAB PO SCH (09:16)
[2019-05-25] MEDS: METOPROLOL TART 25 MG TABLET PO SCH ×2 (09:16→21:05)
[2019-05-25] MEDS: hydroCHLOROthiazide 25 MG TAB PO SCH (09:17)
[2019-05-25] MEDS: ASCORBIC ACID 500 MG TAB PO SCH (09:17)
--- NOTE | 2019-05-25 10:28 | IPN ---
DATE: 05/25/2019 Magan was transferred from the floor to the progressive care unit (PCU) for reported heart rate of 177. Upon arrival to the floor, he was in sinus rhythm and he has remained in strict sinus rhythm during the last 24 hours. PHYSICAL EXAMINATION: Blood pressure 143/71, pulse 79, respiratory rate 18, 94% oxygen saturation. General Appearance: Alert. He answers questions. Dysarthria is at baseline. No distress. HEENT: Unremarkable. Lungs: Clear. Heart: Regular rate and rhythm. 1/6 systolic ejection murmur. Abdomen: Soft. Nontender. No masses. No peripheral edema. LABS: CBC unremarkable. Electrolytes unremarkable. Potassium 3.8. Thyroid function is normal. B12 and folate normal. RPR nonreactive. Hemoglobin A1c was 7.2%. IMPRESSION: 1. Chronic atrial fibrillation converted back to sinus rhythm. Will put him back up to regular medical floor. 2. Encephalopathy, the etiology is unknown. He seems to be at his baseline. Apparently there are some social situations at play as outlined when he was admitted. Defer to Patient and Family Service (PFS). 3. Diabetes. Under reasonable control on his home regimen. He is currently on sliding scale of insulin, which we can stop. I will restart his glipizide, but at a reduced dose due to an enforced diabetic diet. Will change the finger sticks to twice a day. At this point, he is probably senior living level of care. PFS will need to help us with disposition on Monday.
[2019-05-25] MEDS: KETOCONAZOLE 2% CREAM TOP SCH (11:57)
[2019-05-25] MEDS: glipiZIDE (GLUCOTROL) 5 MG TAB PO SCH (11:57)
[2019-05-25 12:00] VITALS: BP 127/56
[2019-05-25 14:35] VITALS: BP 104/63
[2019-05-25 22:00] VITALS: BP 109/67
[2019-05-26 06:00] VITALS: BP 102/69
[2019-05-26 06:22] LABS: HEMATOCRIT 43.2 % (42.0-52.0); HEMOGLOBIN 13.2 g/dl (13.5-17.5); MEAN CORPUSCULAR HEMOGLOBIN 26.5 pg (27.0-33.0); MEAN CORPUSCULAR HGB CONC 30.6 g/dl (32.0-36.5); MEAN CORPUSCULAR VOLUME 86.6 fl (80.0-96.0); PLATELET COUNT, AUTOMATED 144 10^3/uL (150-450); RED BLOOD COUNT 4.99 10^6/uL (4.30-6.10); WHITE BLOOD COUNT 7.7 10^3/uL (4.0-10.0)
[2019-05-26 06:43] LABS: BLOOD UREA NITROGEN 25 MG/DL (7-18); CALCIUM LEVEL 9.2 MG/DL (8.8-10.2); CARBON DIOXIDE LEVEL 26 MEQ/L (21-32); CHLORIDE LEVEL 105 MEQ/L (98-107); CREATININE FOR GFR 1.25 MG/DL (0.70-1.30); GLOMERULAR FILTRATION RATE > 60.0 (>49); GLUCOSE, FASTING 99 MG/DL (70-100); POTASSIUM SERUM 3.7 MEQ/L (3.5-5.1); SODIUM LEVEL 139 MEQ/L (136-145)
[2019-05-26] MEDS: HEPARIN SOD (PORCINE) 5000 UNITS/ML VIAL SQ SCH ×2 (08:17→21:29)
[2019-05-26] MEDS: ASCORBIC ACID 500 MG TAB PO SCH (08:18)
[2019-05-26] MEDS: ASPIRIN 325 MG TAB PO SCH (08:18)
[2019-05-26] MEDS: METOPROLOL TART 25 MG TABLET PO SCH ×3 (08:18→21:50)
[2019-05-26] MEDS: VITAMIN D 1,000 INTERNATIONAL UNITS TABLET PO SCH (08:18)
[2019-05-26] MEDS: glipiZIDE (GLUCOTROL) 5 MG TAB PO SCH (08:19)
[2019-05-26] MEDS: hydroCHLOROthiazide 25 MG TAB PO SCH (08:19)
[2019-05-26] MEDS: CETIRIZINE (ZyrTEC) 10 MG TAB PO SCH (08:19)
--- NOTE | 2019-05-26 08:30 | ECHO ---
DATE OF PROCEDURE: 05/24/2019 DATE OF : 1950 AGE: 68 GENDER: Male HEIGHT: 69 inches WEIGHT: 200 pounds BODY SURFACE AREA: 2.07 m2 INPATIENT: U - Room 3225 REFERRING PHYSICIAN: Dr. Con Singh INDICATION: Abnormal EKG. MEASUREMENTS 2-D Measurements: RV: 4.5 cm LV: 5.2 cm Septum: 1.2 cm Posterior wall: 1.2 cm Aortic root: 3.8 cm LA: 3.9 cm LVEF: 65% Doppler Measurements: AV: 1.21 m/s LVOT: 0.9 m/s LVOT diameter: 2.4 cm MV - E 82 A 70 EA ratio 1.2 Early mitral deceleration time: 201 ms E prime medial: 6 A prime medial: 9 E prime lateral: 11 Average E/E prime ratio 9.6/PCWP 13.9 mmHg PV: 0.9 m/s Pulmonary artery acceleration time: 100 ms PASP: 37 mmHg IVC: 2.1 cm COMMENTS: Normal sinus rhythm with right bundle branch block. Somewhat technically challenging study in light of the patient's body habitus, but diagnostically useful information was still obtained. M-mode and two-dimensional echocardiography was performed with pulsed, continuous wave, color flow and tissue Doppler studies. Mild concentric left ventricle hypertrophy with normal wall motion. At least mildly dilated left atrium with grade 2 LV diastolic dysfunction and current estimated mean left atrial pressure only borderline increased. Mildly dilated right heart chambers with normal wall motion and Doppler evidence of mild pulmonary hypertension. IVC size upper limits of normal with adequate respiratory collapse in keeping with no more than a slightly elevated central venous pressure. Mild aortic valvular sclerosis without functional abnormality. Mild mitral annular calcification without functional valvular abnormality. Normal appearing tricuspid valve with no more than trace to very mild insufficiency. No apparent intracardiac mass or pericardial effusion.
[2019-05-26] MEDS: KETOCONAZOLE 2% CREAM TOP SCH (10:11)
--- NOTE | 2019-05-26 12:52 | IPN ---
DATE: 05/26/2019 Magan is seen on [facility]. He is still back in sinus rhythm. We are not sure what happened with that episode of atrial fibrillation. It was only based on vital signs, it was not captured by electrocardiogram. In any case, he is no longer tachycardiac. PHYSICAL EXAMINATION: Vital signs stable. Pulse 60. 102/69. General Appearance: Dysarthric, alert, conversant. Answers questions slowly. Lungs: Clear. Heart: Regular rate and rhythm, 1/6 systolic ejection murmur. Abdomen: Soft. Nontender. No peripheral edema. Neurologic: Nonfocal. Lab work is unremarkable. IMPRESSION: Metabolic encephalopathy which has passed. At this point, a disposition problem. I have consulted psychiatry and discussed the case with Dr. Stacy who will see whether the patient is psychiatrically able to make his own decisions or whether he is indeed paranoid as every day when you go in his room he has written on a piece of paper that his wants to kill him. Patient and Family Service (PFS) will need to get involved with disposition tomorrow.
[2019-05-26 14:00] VITALS: BP 107/62
[2019-05-26] MEDS: IPRATROPIUM 0.5MG/ALBUTEROL 2.5MG INH SOL UD 3ML (DUONEB)(J7620) NEB PRN ×2 (14:30→21:39)
--- NOTE | 2019-05-26 21:07 | MHCR ---
DATE OF CONSULTATION: 05/26/2019 CHIEF COMPLAINT: Has been confused. SUBJECTIVE: He is 68 years old. He is . He and his have been together, per the patient, for 17 years. He says that he has no children, I am not quite sure of that given the past records. I have been asked to see this patient by Dr. Singh and make an assessment regarding concerns that the patient has had when he has suggested that his is trying to kill him. The chart is reviewed. The patient is interviewed. The interview is difficult, as the patient has dysarthria, which is quite significant, possibly some dysphasia as well, though able to give some answers in some writing. Overall, has difficulties expressing himself. He has a history of stroke possibly, and according to previous records he has a history of dementia, though I am not sure that has been quite formally diagnosed. Has a CT scan of the brain done, including this hospitalization, which has shown volume loss and microangiopathic ischemic disease, which is chronic. MRI of the brain done about 1-1/2 years ago showed mild diffuse atrophy. The patient has several medical difficulties, including a history of melanoma, atrial fibrillation, diabetes. He was admitted to the inpatient psychiatry unit just over 1 year ago as was noted to be threatening towards his and had also threatened suicide. He was seen by Dr. Ibarra and Dr. Umana, discharge summary from February of last year is reviewed. At that time, he had denied that there were guns in the home, but a [id number] had suggested that there were, they were removed. [facility], unclear whether he attends. He had previously had a hospitalization, the prior month in January 2018, at the [place], details unknown. He was also seen in the emergency room in December of this year when he had threatened to choke his , which he denied. He was seen and discharged. Unclear, again, if he attends outpatient psychiatry. He had come in this time around to the hospital as he was noted to be confused. There were acute mental status changes noted, he was nonverbal but was alert and oriented to person. He was unable to narrate a history, according to the chart, when seen a few days ago. He was thought to have possible delirium, was hypoglycemic. He was also seen with a piece of paper which suggested that he had written that his wanted to kill him. He is thought to be more at baseline now. He says that he thinks that his wants to kill him and that she may stab him, but does not think that she will, he denies that he has ever wanted to hurt her. He says that they have been together for 17 years, but that they do not get along. Denies feeling sad but says is sad that she has not visited him. Says would wish to go home, even though he has thoughts that she may want to kill him. Denies any thoughts of wanting to hurt her or anyone else. Again, it should be noted, writes some of the answers and tries to vocalize others. PAST PSYCHIATRIC HISTORY: As indicated above. He is currently on no psychotropic medications as far as I am aware. He has had inpatient hospitalizations on at least a couple of occasions. MEDICAL HISTORY: He has a history of atrial fibrillation, diabetes, chronic obstructive pulmonary disease (COPD), hypertension, and history of melanoma as well. SOCIAL HISTORY: He lives with his . He says that they have been together for 17 years. He says that he has no children, there is a [id number] per the records. MENTAL STATUS EXAMINATION: He is sitting up in bed. He is somewhat unkempt. He is cooperative. No agitation. Some psychomotor retardation. Speech is not spontaneous, he has dysarthria, which is quite considerable. Attempts to write in response to the questions asked, which he manages to some extent. Affect is restricted but shows some reactivity. He denies any suicidal thoughts or intents. Denies any thoughts of hurting anyone else. He is possibly paranoid about his wanting to kill him. Does not appear internally preoccupied. Currently, there is no fluctuation in his consciousness. He is alert. He is oriented to person and place, not fully to time, though he knew that it is May and that it is the holidays. Intellect is currently average. Judgment and insight are fair. ASSESSMENT: 1. Delirium. 2. Neurocognitive disorder by history (dementia, most likely vascular type). He has cognitive difficulties. He has had delirium, he is at risk for that given several medical problems, including atrial fibrillation, diabetes, vascular disease, volume loss seen on imaging of the brain. He is possibly paranoid as well that his is trying to kill or going to kill him. They have had interpersonal difficulties, which have led to one hospitalization. This was last year and a visit to the emergency room this year. There may be some disinhibition secondary to cognitive difficulties. He denies any suicidal thoughts or intents at present. He denies any homicidal ideas or intents. He has mild dysphasia, consider dysarthria. No delirium at present. It is difficult to assess for cognitive difficulties, but most likely he has some. He communicates verbally, also by some writing, answering questions coherently for the most part. The paranoia at this point does not seem to determine his behavior. RECOMMENDATIONS: Optimize current care. The patient's cognitive improvements may lag behind metabolic ones. The patient at this point does not require inpatient psychiatry. He may benefit from continuing to see the outpatient [facility], apparently has attended in the past. It is also probably preferable holding off on using an antipsychotic at this point. Obtain collateral information. When it comes to placement, at present he wishes to go home despite his thoughts of his trying to harm him. I would suggest involving other agencies, adult protective, public health to ease matters at home if he is to return home. Thank you for the consultation. If you have any questions, please call. The assessment took 40 minutes.
[2019-05-26 22:00] VITALS: BP 98/54
[2019-05-26 23:58] VITALS: BP 111/73
[2019-05-27 02:00] VITALS: BP 110/70
[2019-05-27] MEDS: IPRATROPIUM 0.5MG/ALBUTEROL 2.5MG INH SOL UD 3ML (DUONEB)(J7620) NEB PRN (02:23)
[2019-05-27 06:00] VITALS: BP 112/70
[2019-05-27 07:03] LABS: HEMATOCRIT 45.3 % (42.0-52.0); MEAN CORPUSCULAR HEMOGLOBIN 26.8 pg (27.0-33.0); MEAN CORPUSCULAR HGB CONC 30.9 g/dl (32.0-36.5); MEAN CORPUSCULAR VOLUME 86.6 fl (80.0-96.0); PLATELET COUNT, AUTOMATED 156 10^3/uL (150-450); RED BLOOD COUNT 5.23 10^6/uL (4.30-6.10); WHITE BLOOD COUNT 9.4 10^3/uL (4.0-10.0)
[2019-05-27 07:23] LABS: BLOOD UREA NITROGEN 25 MG/DL (7-18); CALCIUM LEVEL 9.8 MG/DL (8.8-10.2); CARBON DIOXIDE LEVEL 27 MEQ/L (21-32); CHLORIDE LEVEL 103 MEQ/L (98-107); CREATININE FOR GFR 1.22 MG/DL (0.70-1.30); GLOMERULAR FILTRATION RATE > 60.0 (>49); GLUCOSE, FASTING 120 MG/DL (70-100); POTASSIUM SERUM 3.7 MEQ/L (3.5-5.1); SODIUM LEVEL 137 MEQ/L (136-145)
[2019-05-27] MEDS: VITAMIN D 1,000 INTERNATIONAL UNITS TABLET PO SCH (08:54)
[2019-05-27] MEDS: glipiZIDE (GLUCOTROL) 5 MG TAB PO SCH (08:54)
[2019-05-27] MEDS: CETIRIZINE (ZyrTEC) 10 MG TAB PO SCH (08:54)
[2019-05-27] MEDS: HEPARIN SOD (PORCINE) 5000 UNITS/ML VIAL SQ SCH ×2 (08:54→20:29)
[2019-05-27] MEDS: hydroCHLOROthiazide 25 MG TAB PO SCH (08:54)
[2019-05-27] MEDS: ASCORBIC ACID 500 MG TAB PO SCH (08:54)
[2019-05-27] MEDS: ASPIRIN 325 MG TAB PO SCH (08:54)
[2019-05-27] MEDS: METOPROLOL TART 25 MG TABLET PO SCH ×2 (08:58→20:29)
[2019-05-27] MEDS: KETOCONAZOLE 2% CREAM TOP SCH (08:59)
--- NOTE | 2019-05-27 13:10 | IPN ---
DATE: 05/27/2019 Magan was seen by psychiatry. Appreciate Dr. Stacy's input. He recommends continuing current care. He does not require inpatient psychiatry. He should see the [place] outpatient clinic for psychiatric medications. Hold off on antipsychotics at this point. would like to have him come home, and he would like to go home as well. Adult Protective will be involved. PHYSICAL EXAMINATION: Afebrile. Vital signs stable. Lungs clear. Heart regular rhythm. Abdomen soft, nontender. No peripheral edema. LABS: CBC, BMP unremarkable. Blood sugars have been normal. IMPRESSION: 1. Metabolic encephalopathy. This is resolved. 2. Concerns about his wanting to kill him. Per Dr. Stacy the patient needs outpatient psychiatric care. Patient and family services (PFS) is involved. I discussed the case with Tabatha Jenkins today. Adult protective will be involved and once all social staff worker in place, anticipate discharge home tomorrow. 3. Chronic atrial fibrillation. Continue current regimen. 4. Diabetes. Restart glipizide at a reduced dose upon discharge. He has not required any diabetes medications in the hospital on an enforced diabetic diet.
[2019-05-27 14:00] VITALS: BP 116/65
[2019-05-27 22:00] VITALS: BP 130/72
[2019-05-28] MEDS: IPRATROPIUM 0.5MG/ALBUTEROL 2.5MG INH SOL UD 3ML (DUONEB)(J7620) NEB PRN (00:32)
[2019-05-28 06:00] VITALS: BP 127/76
[2019-05-28 07:00] LABS: HEMOGLOBIN 14.2 g/dl (13.5-17.5); MEAN CORPUSCULAR HEMOGLOBIN 26.3 pg (27.0-33.0); MEAN CORPUSCULAR HGB CONC 30.2 g/dl (32.0-36.5); PLATELET COUNT, AUTOMATED 154 10^3/uL (150-450); WHITE BLOOD COUNT 8.3 10^3/uL (4.0-10.0)
[2019-05-28 07:14] LABS: BLOOD UREA NITROGEN 26 MG/DL (7-18); CALCIUM LEVEL 9.5 MG/DL (8.8-10.2); CARBON DIOXIDE LEVEL 28 MEQ/L (21-32); CHLORIDE LEVEL 101 MEQ/L (98-107); CREATININE FOR GFR 1.16 MG/DL (0.70-1.30); GLOMERULAR FILTRATION RATE > 60.0 (>49); GLUCOSE, FASTING 108 MG/DL (70-100); POTASSIUM SERUM 3.8 MEQ/L (3.5-5.1); SODIUM LEVEL 138 MEQ/L (136-145)
[2019-05-28] MEDS: ASPIRIN 325 MG TAB PO SCH (08:35)
[2019-05-28] MEDS: KETOCONAZOLE 2% CREAM TOP SCH (08:35)
[2019-05-28] MEDS: VITAMIN D 1,000 INTERNATIONAL UNITS TABLET PO SCH (08:35)
[2019-05-28] MEDS: hydroCHLOROthiazide 25 MG TAB PO SCH (08:35)
[2019-05-28] MEDS: CETIRIZINE (ZyrTEC) 10 MG TAB PO SCH (08:36)
[2019-05-28] MEDS: ASCORBIC ACID 500 MG TAB PO SCH (08:36)
[2019-05-28] MEDS: glipiZIDE (GLUCOTROL) 5 MG TAB PO SCH (08:36)
[2019-05-28] MEDS: HEPARIN SOD (PORCINE) 5000 UNITS/ML VIAL SQ SCH ×2 (08:36→20:18)
[2019-05-28] MEDS: METOPROLOL TART 25 MG TABLET PO SCH ×2 (08:39→20:18)
[2019-05-28 14:00] VITALS: BP 115/65
--- NOTE | 2019-05-28 17:51 | IPNPDOC ---
Text Note Date of Service The patient was seen on 05/28/19. NOTE SUBJECTIVE: Mr. Schuler is seen and examined. He appears oriented principally to self; he occasionally communicates by writing, but primarily grunts. He does not appear to be in any distress. He was admitted with an episode of paranoia. OBJECTIVE: Please see vital signs below Physical exam: HEENT: Neck is supple with no adenopathy or thyromegaly, oral mucosa is moist Cardiovascular: Regular rate and rhythm, no appreciable murmur. Abdomen: Soft, nontender, remarkable central obesity. Extremities: No peripheral edema or lesions. Respiratory: Clear to auscultation with good air movement ASSESSMENT/PLAN: 1. Unspecified mood disorder. The patient was exhibiting some paranoia; he was stating that his is wanting to kill him. Patient was evaluated by our psychiatry service and recommendations are for outpatient follow-up. His acute paranoia is felt to have resolved. 2. Atrial fibrillation. The patient had a fleeting episode of atrial fibrillation with rapid ventricular response. It had resolved by the time he was transferred to telemetry and he was returned to the [facility] floor. He has not had recurrence and has not required medical intervention. 3. Disposition. Concerns were raised for his environment condition at home. There apparently had been an APS inquiry. Patient will be discharged to home when it is determined safe do so. VS,Fishbone, I+O VS, Fishbone, I+O Laboratory Tests 05/28/19 05:30 Vital Signs Date Time Temp Pulse Resp B/P (MAP) Pulse Ox O2 Delivery O2 Flow Rate FiO2 05/28/19 14:00 97.9 70 18 115/65 (82) 96 Room Air I&O- Last 24 Hours up to 6 AM 05/28/19 06:00 Intake Total 2195 ml Output Total 1050 ml Balance 1145 ml ALYCIA VELASQUEZ MD May 28, 2019 17:51
[2019-05-29 06:00] VITALS: BP 131/78
[2019-05-29 06:35] LABS: HEMOGLOBIN 13.9 g/dl (13.5-17.5); MEAN CORPUSCULAR HEMOGLOBIN 26.9 pg (27.0-33.0); MEAN CORPUSCULAR HGB CONC 31.6 g/dl (32.0-36.5); MEAN CORPUSCULAR VOLUME 85.1 fl (80.0-96.0); PLATELET COUNT, AUTOMATED 148 10^3/uL (150-450); RED BLOOD COUNT 5.17 10^6/uL (4.30-6.10); WHITE BLOOD COUNT 8.4 10^3/uL (4.0-10.0)
[2019-05-29 06:56] LABS: BLOOD UREA NITROGEN 27 MG/DL (7-18); CALCIUM LEVEL 9.8 MG/DL (8.8-10.2); CARBON DIOXIDE LEVEL 27 MEQ/L (21-32); CHLORIDE LEVEL 102 MEQ/L (98-107); CREATININE FOR GFR 1.13 MG/DL (0.70-1.30); GLOMERULAR FILTRATION RATE > 60.0 (>49); GLUCOSE, FASTING 115 MG/DL (70-100); POTASSIUM SERUM 3.8 MEQ/L (3.5-5.1); SODIUM LEVEL 138 MEQ/L (136-145)
[2019-05-29] MEDS: VITAMIN D 1,000 INTERNATIONAL UNITS TABLET PO SCH (08:17)
[2019-05-29] MEDS: ASCORBIC ACID 500 MG TAB PO SCH (08:17)
[2019-05-29] MEDS: KETOCONAZOLE 2% CREAM TOP SCH (08:17)
[2019-05-29] MEDS: HEPARIN SOD (PORCINE) 5000 UNITS/ML VIAL SQ SCH ×2 (08:17→20:01)
[2019-05-29] MEDS: glipiZIDE (GLUCOTROL) 5 MG TAB PO SCH (08:18)
[2019-05-29] MEDS: METOPROLOL TART 25 MG TABLET PO SCH ×2 (08:18→19:56)
[2019-05-29] MEDS: hydroCHLOROthiazide 25 MG TAB PO SCH (08:18)
[2019-05-29] MEDS: ASPIRIN 325 MG TAB PO SCH (08:18)
[2019-05-29] MEDS: CETIRIZINE (ZyrTEC) 10 MG TAB PO SCH (08:18)
[2019-05-29] MEDS: IPRATROPIUM 0.5MG/ALBUTEROL 2.5MG INH SOL UD 3ML (DUONEB)(J7620) NEB PRN ×2 (13:23→22:20)
[2019-05-29 14:00] VITALS: BP 142/65
[2019-05-29] MEDS ORDERED: ACETAMINOPHEN TAB 650MG DOSE (2X325MG) PO PRN (14:15)
--- NOTE | 2019-05-29 14:38 | IPNPDOC ---
Text Note Date of Service The patient was seen on 05/29/19. NOTE SUBJECTIVE: Mr. Schuler communicates by writing today. He is indicating that he has low back pain. Patient is admitted primarily with concerns regarding "altered" mental status and mood/personality disorder. OBJECTIVE: Please see vital signs below Physical exam: General: The patient is cooperative with exam today. Patient indicates with reaching around to touch his lower back that that's where his pain is. HEENT: Neck is supple with no adenopathy or thyromegaly, oral mucosa is moist, patient has poor control of his oral secretions Cardiovascular: Regular rate and rhythm, no appreciable murmur. Respiratory: Clear to auscultation with good air movement Abdomen: Soft, nontender, remarkable central obesity Extremities: No peripheral edema or lesions. Neuro: The patient has poor to absent speech with severe dysarthria, he is able to write Psych: The patient is calm for now. He has not written anything to indicate distress. ASSESSMENT/PLAN: 1. Unspecified mood/personality disorder. The patient was exhibiting some paranoia; he was stating that his is wanting to kill him. Patient was evaluated by our psychiatry service and recommendations are for outpatient follow-up. His acute paranoia is felt to have resolved. The patient is felt to have residual neurocognitive disorder. 2. Atrial fibrillation. The patient had a fleeting episode of atrial fibrillation with rapid ventricular response. It had resolved by the time he was transferred to telemetry and he was returned to the [facility] floor. He has not had recurrence and has not required medical intervention. 3. Disposition. Concerns were raised for his environment condition at home. There apparently had been an APS inquiry. Patient will be discharged to home when it is determined safe do so. 4. Dysphagia, dysarthria. The patient has expressive aphasia with dysarthria and dysphagia with poor contr ol of his oral secretions. It is difficult to determine whether this patient has had a stroke in the past; it is not explicitly stated in his medical records. We will discuss with therapy services. VS,Fishbone, I+O VS, Fishbone, I+O Laboratory Tests 05/29/19 05:59 Vital Signs Date Time Temp Pulse Resp B/P (MAP) Pulse Ox O2 Delivery O2 Flow Rate FiO2 05/29/19 14:00 98.7 73 19 142/65 (90) 96 05/28/19 14:00 Room Air I&O- Last 24 Hours up to 6 AM 05/29/19 06:00 Intake Total 1460 ml Output Total 750 ml Balance 710 ml ALYCIA VELASQUEZ MD May 29, 2019 14:38
[2019-05-29 22:00] VITALS: BP 117/68
[2019-05-30] MEDS: IPRATROPIUM 0.5MG/ALBUTEROL 2.5MG INH SOL UD 3ML (DUONEB)(J7620) NEB PRN ×3 (02:35→23:39)
[2019-05-30 05:50] LABS: HEMATOCRIT 45.5 % (42.0-52.0); MEAN CORPUSCULAR HEMOGLOBIN 26.6 pg (27.0-33.0); MEAN CORPUSCULAR HGB CONC 30.8 g/dl (32.0-36.5); MEAN CORPUSCULAR VOLUME 86.3 fl (80.0-96.0); PLATELET COUNT, AUTOMATED 145 10^3/uL (150-450); RED BLOOD COUNT 5.27 10^6/uL (4.30-6.10)
[2019-05-30 06:00] VITALS: BP 130/70
[2019-05-30 06:12] LABS: BLOOD UREA NITROGEN 23 MG/DL (7-18); CALCIUM LEVEL 9.5 MG/DL (8.8-10.2); CARBON DIOXIDE LEVEL 27 MEQ/L (21-32); CHLORIDE LEVEL 103 MEQ/L (98-107); CREATININE FOR GFR 1.15 MG/DL (0.70-1.30); GLOMERULAR FILTRATION RATE > 60.0 (>49); GLUCOSE, FASTING 115 MG/DL (70-100); POTASSIUM SERUM 3.7 MEQ/L (3.5-5.1); SODIUM LEVEL 139 MEQ/L (136-145)
[2019-05-30] MEDS: HEPARIN SOD (PORCINE) 5000 UNITS/ML VIAL SQ SCH ×2 (08:28→20:12)
[2019-05-30] MEDS: glipiZIDE (GLUCOTROL) 5 MG TAB PO SCH (08:29)
[2019-05-30] MEDS: VITAMIN D 1,000 INTERNATIONAL UNITS TABLET PO SCH (08:29)
[2019-05-30] MEDS: METOPROLOL TART 25 MG TABLET PO SCH ×2 (08:29→20:12)
[2019-05-30] MEDS: hydroCHLOROthiazide 25 MG TAB PO SCH (08:29)
[2019-05-30] MEDS: CETIRIZINE (ZyrTEC) 10 MG TAB PO SCH (08:29)
[2019-05-30] MEDS: ASCORBIC ACID 500 MG TAB PO SCH (08:29)
[2019-05-30] MEDS: ASPIRIN 325 MG TAB PO SCH (08:29)
[2019-05-30] MEDS: KETOCONAZOLE 2% CREAM TOP SCH (08:30)
[2019-05-30] MEDS: ONDANSETRON 4MG/2ML VIAL (J2405) IV PRN ×2 (09:53→20:12)
[2019-05-30 14:00] VITALS: BP 110/52
--- NOTE | 2019-05-30 19:54 | IPNPDOC ---
Text Note Date of Service The patient was seen on 05/30/19. NOTE SUBJECTIVE: Mr. Schuler clearly stated "no" and shook his head when asked about back pain. He otherwise communicates by writing when he wishes, or grunting. Patient is admitted primarily with concerns regarding "altered" mental status and mood/personality disorder. OBJECTIVE: Please see vital signs below Physical exam: General: The patient is cooperative with exam today. HEENT: Neck is supple with no adenopathy or thyromegaly, oral mucosa is moist, patient has poor control of his oral secretions Cardiovascular: Regular rate and rhythm, no appreciable murmur. Respiratory: Clear to auscultation with good air movement Abdomen: Soft, nontender, remarkable central obesity Extremities: No peripheral edema or lesions. Neuro: The patient has poor to absent speech with severe dysarthria, he is able to write at times, today he is feeding himself Psych: The patient is calm for now. He has not written anything to indicate distress. ASSESSMENT/PLAN: 1. Unspecified mood/personality disorder. The patient was exhibiting some paranoia; he was stating that his is wanti ng to kill him. Patient was evaluated by our psychiatry service and recommendations are for outpatient follow-up. His acute paranoia is felt to have resolved. The patient is felt to have residual neurocognitive disorder. 2. Atrial fibrillation. The patient had a fleeting episode of atrial fibrillation with rapid ventricular response. It had resolved by the time he was transferred to telemetry and he was returned to the [facility] floor. He has not had recurrence and has not required medical intervention. 3. Disposition. Concerns were raised for his environment condition at home. There apparently had been an APS inquiry. Patient was to be discharged to home when it was determined safe do so; is now refusing to care for him and he will need placement. 4. Dysphagia, dysarthria. The patient has expressive aphasia with dysarthria and dysphagia with poor control of his oral secretions. It is difficult to determine whether this patient has had a stroke in the past; it is not explicitly stated in his medical records. He has been evaluated by therapy services and found to require a modif ied dysphagia diet.. VS,Fishbone, I+O VS, Fishbone, I+O Laboratory Tests 05/30/19 05:11 Vital Signs Date Time Temp Pulse Resp B/P (MAP) Pulse Ox O2 Delivery O2 Flow Rate FiO2 05/30/19 19:17 72 20 05/30/19 14:00 97.5 110/52 (71) 96 Room Air I&O- Last 24 Hours up to 6 AM 05/30/19 08:00 Intake Total 1600 ml Output Total 1085 ml Balance 515 ml ALYCIA VELASQUEZ MD May 30, 2019 19:54
[2019-05-30 22:00] VITALS: BP 119/59
[2019-05-31] MEDS: IPRATROPIUM 0.5MG/ALBUTEROL 2.5MG INH SOL UD 3ML (DUONEB)(J7620) NEB PRN (02:35)
[2019-05-31 06:00] VITALS: BP 116/58
[2019-05-31] MEDS: ONDANSETRON 4MG/2ML VIAL (J2405) IV PRN (08:09)
[2019-05-31] MEDS: CETIRIZINE (ZyrTEC) 10 MG TAB PO SCH (08:10)
[2019-05-31] MEDS: ASPIRIN 325 MG TAB PO SCH (08:10)
[2019-05-31] MEDS: VITAMIN D 1,000 INTERNATIONAL UNITS TABLET PO SCH (08:10)
[2019-05-31] MEDS: ASCORBIC ACID 500 MG TAB PO SCH (08:10)
[2019-05-31] MEDS: HEPARIN SOD (PORCINE) 5000 UNITS/ML VIAL SQ SCH ×3 (08:10→20:25)
[2019-05-31] MEDS: glipiZIDE (GLUCOTROL) 5 MG TAB PO SCH (08:11)
[2019-05-31] MEDS: hydroCHLOROthiazide 25 MG TAB PO SCH (08:14)
[2019-05-31] MEDS: METOPROLOL TART 25 MG TABLET PO SCH ×3 (08:14→20:25)
[2019-05-31] MEDS: KETOCONAZOLE 2% CREAM TOP SCH ×2 (08:15→08:22)
[2019-05-31] MEDS: SCOPOLAMINE 1MG TRANSDERMAL PATCH TOP SCH (10:31)
[2019-05-31 14:00] VITALS: BP 112/64
--- NOTE | 2019-05-31 21:16 | IPNPDOC ---
Text Note Date of Service The patient was seen on 05/31/19. NOTE SUBJECTIVE: Mr. Schuler continues to communicate by writing when he wishes, or grunting. Patient is admitted primarily with concerns regarding "altered" mental status and mood/personality disorder. OBJECTIVE: Please see vital signs below Physical exam: General: The patient is cooperative with exam today. HEENT: Neck is supple with no adenopathy or thyromegaly, oral mucosa is moist, p atient has poor control of his oral secretions Cardiovascular: Regular rate and rhythm, no appreciable murmur. Respiratory: Clear to auscultation with good air movement Abdomen: Soft, nontender, remarkable central obesity Extremities: No peripheral edema or lesions. Neuro: The patient has poor to absent speech with severe dysarthria, he is able to write at times, today he is feeding himself Psych: The patient is calm for now. He has not written anything to indicate distress. ASSESSMENT/PLAN: 1. Unspecified mood/personality disorder. The patient was exhibiting some paranoia; he was stating that his is wanting to kill him. Patient was evaluated by our psychiatry service and recommendations are for outpatient follow-up. His acute paranoia is felt to have resolved. The patient is felt to have residual neurocognitive disorder. He is again labile and may need reevaluation by the psychiatry service. 2. Atrial fibrillation. The patient had a fleeting episode of atrial fibrillation with rapid ventricular response. It had resolved by the time he was transferred to telemetry and he was returned to the [facility] floor. He has not had recurrence and has not required medical intervention. 3. Disposition. Concerns were raised for his environment condition at home. There apparently had been an APS inquiry. Patient was to be discharged to home when it was determined safe do so; is now refusing to care for him for unclear reason and he will need placement. 4. Dysphagia, dysarthria. The patient has expressive aphasia with dysarthria and dysphagia with poor control of his oral secretions. It is difficult to determine whether this patient has had a stroke in the past; it is not explicitly stated in his medical records. He has been evaluated by therapy services and found to require a modified dysphagia diet. Additional radiologic swallow eval is pending. VS,Fishbone, I+O VS, Fishbone, I+O Vital Signs Date Time Temp Pulse Resp B/P (MAP) Pulse Ox O2 Delivery O2 Flow Rate FiO2 05/31/19 14:00 97.6 70 18 112/64 (80) 95 Room Air I&O- Last 24 Hours up to 6 AM 05/31/19 05:59 Intake Total 1880 ml Output Total 880 ml Balance 1000 ml ALYCIA VELASQUEZ MD May 31, 2019 21:16
[2019-05-31 22:00] VITALS: BP 121/64
[2019-06-01] MEDS: IPRATROPIUM 0.5MG/ALBUTEROL 2.5MG INH SOL UD 3ML (DUONEB)(J7620) NEB PRN ×2 (05:22→21:17)
[2019-06-01 06:00] VITALS: BP 112/60
[2019-06-01] MEDS: HEPARIN SOD (PORCINE) 5000 UNITS/ML VIAL SQ SCH ×3 (08:04→20:11)
[2019-06-01] MEDS: ASPIRIN 325 MG TAB PO SCH (08:04)
[2019-06-01] MEDS: glipiZIDE (GLUCOTROL) 5 MG TAB PO SCH (08:04)
[2019-06-01] MEDS: CETIRIZINE (ZyrTEC) 10 MG TAB PO SCH (08:04)
[2019-06-01] MEDS: VITAMIN D 1,000 INTERNATIONAL UNITS TABLET PO SCH (08:04)
[2019-06-01] MEDS: ASCORBIC ACID 500 MG TAB PO SCH (08:05)
[2019-06-01] MEDS: hydroCHLOROthiazide 25 MG TAB PO SCH (08:05)
[2019-06-01] MEDS: METOPROLOL TART 25 MG TABLET PO SCH ×2 (08:05→20:10)
[2019-06-01] MEDS: KETOCONAZOLE 2% CREAM TOP SCH (08:06)
[2019-06-01 14:00] VITALS: BP 100/50
--- NOTE | 2019-06-01 20:23 | IPNPDOC ---
Text Note Date of Service The patient was seen on 06/01/19. NOTE SUBJECTIVE: Mr. Schuler continues to communicate by writing when he wishes, or grunting. Today he wrote the word "feet" and nods yes when asked if he wants to see a shot bagger. Patient is admitted primarily with concerns regarding "altered" mental status and mood/personality disorder. OBJECTIVE: Please see vital signs below Physical exam: General: The patient is cooperative with exam today. HEENT: Neck is supple with no adenopathy or thyromegaly, oral mucosa is moist, patient has poor control of his oral secretions Cardiovascular: Regular rate and rhythm, no appreciable murmur. Respiratory: Clear to auscultation with good air movement Abdomen: Soft, nontender, remarkable central obesity Extremities: No peripheral edema or lesions. Neuro: The patient has poor to absent speech with severe dysarthria, he is able to write at times, today he is feeding himself Psych: The patient is calm for now. He has not written anything to indicate distress. ASSESSMENT/PLAN: 1. Unspecified mood/personality disorder. The patient was exhibiting some paranoia; he was stating that his is wanting to kill him. Patient was evaluated by our psychiatry service and recommendations are for outpatient follow-up. His acute paranoia is felt to have resolved. The patient is felt to have residual neurocognitive disorder. He is again labile and may need reevaluation by the psychiatry service. 2. Atrial fibrillation. The patient had a fleeting episode of atrial fibrillation with rapid ventricular response. It had resolved by the time he was transferred to telemetry and he was returned to the [facility] floor. He has not had recurrence and has not required medical intervention. 3. Disposition. Concerns were raised for his environment condition at home. There apparently had been an APS inquiry. Patient was to be discharged to home when it was determined safe do so; made statements refusing to care for him yesterday--today she called demanding to be allowed to take him home. Safety still needs to be determined. 4. Dysphagia, dysarthria. The patient has expressive aphasia with dysarthria and dysphagia with poor control of his oral secretions. It is difficult to determine whether this patient has had a stroke in the past; it is not explicitly stated in his medical records. He has been evaluated by speech/swallow therapy services and found to require a modified dysphagia diet. Additional radiologic swallow eval is pending . VS,Fishbone, I+O VS, Fishbone, I+O Vital Signs Date Time Temp Pulse Resp B/P (MAP) Pulse Ox O2 Delivery O2 Flow Rate FiO2 06/01/19 20:10 72 106/59 06/01/19 14:00 98.9 20 98 Room Air I&O- Last 24 Hours up to 6 AM 06/01/19 08:00 Intake Total 850 ml Output Total 1095 ml Balance -245 ml ALYCIA VELASQUEZ MD Jun 01, 2019 20:23
[2019-06-01 22:00] VITALS: BP 119/84
[2019-06-02] MEDS: IPRATROPIUM 0.5MG/ALBUTEROL 2.5MG INH SOL UD 3ML (DUONEB)(J7620) NEB PRN ×2 (04:21→15:00)
[2019-06-02 06:00] VITALS: BP 112/73
[2019-06-02] MEDS: METOPROLOL TART 25 MG TABLET PO SCH ×2 (08:06→22:17)
[2019-06-02] MEDS: glipiZIDE (GLUCOTROL) 5 MG TAB PO SCH (08:06)
[2019-06-02] MEDS: CETIRIZINE (ZyrTEC) 10 MG TAB PO SCH (08:06)
[2019-06-02] MEDS: ASPIRIN 325 MG TAB PO SCH (08:06)
[2019-06-02] MEDS: VITAMIN D 1,000 INTERNATIONAL UNITS TABLET PO SCH (08:06)
[2019-06-02] MEDS: hydroCHLOROthiazide 25 MG TAB PO SCH (08:07)
[2019-06-02] MEDS: ASCORBIC ACID 500 MG TAB PO SCH (08:07)
[2019-06-02] MEDS: KETOCONAZOLE 2% CREAM TOP SCH (08:07)
[2019-06-02] MEDS: HEPARIN SOD (PORCINE) 5000 UNITS/ML VIAL SQ SCH ×3 (08:07→22:16)
[2019-06-02 14:00] VITALS: BP 100/59
[2019-06-02 22:00] VITALS: BP 115/66
[2019-06-03 06:00] VITALS: BP 119/66
--- NOTE | 2019-06-03 07:31 | IPN ---
DATE OF SERVICE: 06/02/2019 This is a 68-year-old male seen on 06/02/2019. He was admitted primarily with concerns regarding "altered mental status and mood personality disorder". He has significant dysarthria and dysphagia. He is going to have a cookie swallow in the a.m. He mostly is grunting. He has not really spoke much. He did nod his head. He continues to communicate by writing should he choose to. Blood sugars have been 90s to 114. He remains afebrile. Vital signs remain stable. Blood pressure 115/66. Pulse 70. Respirations 18. Oxygen saturation 96% on room air. Temperature 97.9. The patient is alert. Follows commands. Oriented to person. Pupils equal and react to light. Pharynx, tongue and gums pink and moist. Tongue is midline. Neck is supple, without lymphadenopathy. No thyromegaly. No goiter. Carotids 2+, without bruit. Chest clear to auscultation, without wheeze or retraction. Heart is regular. Abdomen benign. Bowel sounds positive. Genitourinary ()/Rectal: Not done. Extremities show no cyanosis, clubbing or edema. Peripheral pulses equal and palpable bilaterally. IMPRESSION AND PLAN: 1. Nonspecified mood and personality disorder. Will need to continue psychiatry as outpatient. He is labile again and may need reevaluation. 2. Atrial fibrillation. No further fleeting episode. 3. Dysphagia and dysarthria. Poor control over oral secretions. Continue modified dysphagia diet and cookie swallow in a.m.
[2019-06-03] MEDS: ASCORBIC ACID 500 MG TAB PO SCH (08:57)
[2019-06-03] MEDS: glipiZIDE (GLUCOTROL) 5 MG TAB PO SCH (08:57)
[2019-06-03] MEDS: CETIRIZINE (ZyrTEC) 10 MG TAB PO SCH (08:57)
[2019-06-03] MEDS: METOPROLOL TART 25 MG TABLET PO SCH ×2 (08:57→21:45)
[2019-06-03] MEDS: VITAMIN D 1,000 INTERNATIONAL UNITS TABLET PO SCH (08:57)
[2019-06-03] MEDS: KETOCONAZOLE 2% CREAM TOP SCH (08:58)
[2019-06-03] MEDS: HEPARIN SOD (PORCINE) 5000 UNITS/ML VIAL SQ SCH ×2 (08:58→21:00)
[2019-06-03] MEDS: hydroCHLOROthiazide 25 MG TAB PO SCH (08:58)
[2019-06-03] MEDS: ASPIRIN 325 MG TAB PO SCH (08:58)
[2019-06-03 09:00] VITALS: BP 109/64
[2019-06-03] MEDS: SCOPOLAMINE 1MG TRANSDERMAL PATCH TOP SCH (09:00)
--- NOTE | 2019-06-03 10:14 | IPN ---
DATE OF SERVICE: 06/03/2019 Magan apparently was going to be discharged on 06/01/2019, but then he could not get a ride. Now he has a swallowing study planned for today. He looks about the same as he did the last time that I saw him, which was a week ago. PHYSICAL EXAMINATION: Afebrile. Vital signs stable. Lungs: Clear. Heart: Regular rate and rhythm. Abdomen: Soft. Nontender. No peripheral edema. LABS: None since 05/30/2019. PLAN: Swallowing study and then if a ride can be worked out he will be discharged today. Patient and Family Service (PFS) will call me if things get worked out today.
[2019-06-03 14:00] VITALS: BP 113/59
[2019-06-03 22:00] VITALS: BP 112/59
[2019-06-04] MEDS: IPRATROPIUM 0.5MG/ALBUTEROL 2.5MG INH SOL UD 3ML (DUONEB)(J7620) NEB PRN (01:40)
[2019-06-04 06:00] VITALS: BP 114/57
[2019-06-04 06:09] LABS: HEMATOCRIT 41.4 % (42.0-52.0); HEMOGLOBIN 13.2 g/dl (13.5-17.5); MEAN CORPUSCULAR HEMOGLOBIN 27.3 pg (27.0-33.0); MEAN CORPUSCULAR HGB CONC 31.9 g/dl (32.0-36.5); MEAN CORPUSCULAR VOLUME 85.7 fl (80.0-96.0); PLATELET COUNT, AUTOMATED 148 10^3/uL (150-450); RED BLOOD COUNT 4.83 10^6/uL (4.30-6.10); WHITE BLOOD COUNT 9.2 10^3/uL (4.0-10.0)
[2019-06-04 06:35] LABS: ALBUMIN 3.4 GM/DL (3.2-5.2); ALT/SGPT 48 U/L (12-78); BILIRUBIN,TOTAL 0.6 MG/DL (0.2-1.0); BLOOD UREA NITROGEN 23 MG/DL (7-18); CALCIUM LEVEL 9.1 MG/DL (8.8-10.2); CARBON DIOXIDE LEVEL 28 MEQ/L (21-32); CHLORIDE LEVEL 102 MEQ/L (98-107); CREATININE FOR GFR 1.24 MG/DL (0.70-1.30); GLOMERULAR FILTRATION RATE > 60.0 (>49); GLUCOSE, FASTING 113 MG/DL (70-100); POTASSIUM SERUM 3.7 MEQ/L (3.5-5.1); SODIUM LEVEL 138 MEQ/L (136-145); TOTAL PROTEIN 7.3 GM/DL (6.4-8.2)
[2019-06-04] MEDS ORDERED: VARIBAR NECTAR 40% w/v 240ML SUSP BTL As Ordered ONE (08:13)
[2019-06-04] MEDS ORDERED: VARIBAR PUDDING 40% w/v 230ML TUBE As Ordered ONE (08:13)
[2019-06-04] MEDS ORDERED: E-Z-PAQUE 96% w/w SUSP 176GM BTL As Ordered ONE (08:14)
[2019-06-04] MEDS ORDERED: BARIUM SULFATE 700 MG TABLET (E-Z-DISK) As Ordered ONE (08:14)
[2019-06-04] MEDS: HEPARIN SOD (PORCINE) 5000 UNITS/ML VIAL SQ SCH (08:32)
[2019-06-04 08:33] VITALS: BP 123/65
[2019-06-04] MEDS: METOPROLOL TART 25 MG TABLET PO SCH (08:33)
[2019-06-04] MEDS: ASPIRIN 325 MG TAB PO SCH (08:33)
[2019-06-04] MEDS: glipiZIDE (GLUCOTROL) 5 MG TAB PO SCH (08:33)
[2019-06-04] MEDS: VITAMIN D 1,000 INTERNATIONAL UNITS TABLET PO SCH (08:33)
[2019-06-04] MEDS: ASCORBIC ACID 500 MG TAB PO SCH (08:33)
[2019-06-04] MEDS: KETOCONAZOLE 2% CREAM TOP SCH (08:33)
[2019-06-04] MEDS: CETIRIZINE (ZyrTEC) 10 MG TAB PO SCH (08:34)
[2019-06-04] MEDS: hydroCHLOROthiazide 25 MG TAB PO SCH (08:34)
--- NOTE | 2019-06-04 09:58 | REP ---
Examination Requested: Cookie Swallow Clinical: Dysphagia Note: Procedure was performed in conjunction with Heather Warner of the department of speech pathology. Findings: 5 ml aliquots of nectar, pudding, mixed fruit, soft food, honey and pill consistency barium was administered. Examination appeared normal and without laryngeal penetration or aspiration. Please refer to speech pathology report for more detailed evaluation. 1.1 minutes of fluoroscopy time was utilized for this procedure. Impression: 1. Relatively normal examination without evidence for laryngeal penetration or aspiration. Electronically Signed by Tony Jansen MD 06/04/2019 09:50 A
[2019-06-04] MEDS ORDERED: GLIP5TAB8 PO (10:24)
--- NOTE | 2019-06-04 11:29 | DSES ---
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 SECONDARY DIAGNOSES: 1. Atrial fibrillation, rapid ventricular response, paroxysmal and self-terminating. 2. Dysarthria/dysphasia. HISTORY: Magan Schuler was admitted with concerns about his safety at home, and this is all detailed in the history and physical on admission. HOSPITAL COURSE: He was admitted to a medical bed. Psychiatry saw him. They thought that he was safe for discharge home. Recommended outpatient behavioral health followup. He has a history of atrial fibrillation. He is not anticoagulated beyond aspirin due to a history of poor compliance and has decision made through the [facility] who is his primary provider. His blood pressure remained well controlled on reduced load of medications. His IVs remained well controlled on reduced load of diabetic medications. Hemoglobin A1c was 7.2%, showing good control of his diabetes. On day of discharge, his white count is 9.2, hemoglobin 13, platelets 148. Sodium 138, potassium 3.7, BUN 23, creatinine 1.2, fasting glucose was 113. Blood sugars have been around 100 for the past several days. B12 level was normal. Folic acid level normal. TSH and free T4 within normal range. Rapid plasma reagin (RPR) negative. He had a swallowing study today. No aspiration. Speech therapy recommends thin liquids, mechanically soft diet, which will order on discharge. Per patient and family services (PFS), the patient has adequate arrangements made for discharge home. Medically, he is stable for discharge. He should followup with his primary care provider in a week. Advised followup with [facility] as an outpatient, per psychiatry consult. Followup with primary care provider in a week and [facility] as an outpatient. Mechanically soft diet with thin liquids permissible. MEDICATIONS ON DISCHARGE: His medicines will continue to be vitamin C, aspirin 325 mg daily, cetirizine 10 mg daily, vitamin D 1000 units daily, some topical steroid, hydrochlorothiazide 25 mg daily, ketoconazole cream daily, metoprolol tartrate 75 mg twice a day, and we reduced the dose of glipizide to 5 mg daily.
== END 2019-06-04 14:27 | disposition home or self-care (01) | DRG 883 ==
LOC: M ED 14:17 → M ED INP 14:18 → M MS5PR 21:50 → M PCU 05-24 12:15 → OBSVTOIN 05-25 10:07 → M MSPAV 05-25 14:23
PROVIDERS: ADMIT Internal Medicine; ATTEND Family Medicine
DX: F60.9 Personality disorder, unspecified (principal); F01.51 Vascular dementia, unspecified severity, with behavioral disturbance; I48.20 Chronic atrial fibrillation, unspecified; I10 Essential (primary) hypertension; J44.9 Chronic obstructive pulmonary disease, unspecified; E11.9 Type 2 diabetes mellitus without complications; Z87.891 Personal history of nicotine dependence; B35.3 Tinea pedis; Z79.82 Long term (current) use of aspirin; Z79.899 Other long term (current) drug therapy; Z88.8 Allergy status to other drugs, medicaments and biological substances; R13.10 Dysphagia, unspecified; R47.1 Dysarthria and anarthria; F39 Unspecified mood [affective] disorder

== ENCOUNTER 2019-11-24 20:37 | Inpatient (IN) | payer OTHER ==
[~2019-11-24] VITALS: Ht 172.7 cm; Wt 110.0 kg
[2019-11-24] MEDS: HumaLOG INSULIN (NovoLOG) PER UNIT SC SCH (00:10)
[2019-11-24] MEDS: NYSTATIN 100,000 UNITS/GM TOPICAL PWD 15 GM TOP SCH (01:20)
[~2019-11-24 20:37] MED LIST changes: +ASCO500T PO; +B-COTAB10 PO; +FLUO5OI TOP; +HYDR1CRE95 TOP; +KETO2CR TOP; +VITA100066 PO
[2019-11-24] MEDS ORDERED: NS 1,000 ML IV SCH (21:01)
[2019-11-24 21:33] LABS: BASO # 0.1 10^3/uL (0.0-0.2); BASO % 0.5 % (0.0-1.0); EOS # 0.2 10^3/uL (0.0-0.5); EOS % 1.6 % (0.0-3.0); HEMATOCRIT 39.3 % (42.0-52.0); HEMOGLOBIN 12.4 g/dl (13.5-17.5); LYMPH % 9.9 % (24.0-44.0); MEAN CORPUSCULAR HEMOGLOBIN 25.8 pg (27.0-33.0); MEAN CORPUSCULAR HGB CONC 31.6 g/dl (32.0-36.5); MEAN CORPUSCULAR VOLUME 81.9 fl (80.0-96.0); MONO # 0.5 10^3/uL (0.0-0.8); MONO % 5.5 % (0.0-5.0); NEUTROPHILS # 7.9 10^3/uL (1.5-8.5); PLATELET COUNT, AUTOMATED 140 10^3/uL (150-450); WHITE BLOOD COUNT 9.6 10^3/uL (4.0-10.0)
--- NOTE | 2019-11-24 21:37 | REPVR ---
PROCEDURE INFORMATION: Exam: CT Head Without Contrast Exam date and time: 11/24/2019 9:15 PM Age: 69 years old Clinical indication: Pain; Headache; Additional info: Altered mental status TECHNIQUE: Imaging protocol: Computed tomography of the head without contrast. Radiation optimization: All CT scans at this facility use at least one of these dose optimization techniques: automated exposure control; mA and/or kV adjustment per patient size (includes targeted exams where dose is matched to clinical indication); or iterative reconstruction. COMPARISON: CT Head without contrast 05/23/2019 6:30 PM FINDINGS: Brain: There are mild periventricular and subcortical lucencies consistent with chronic microvascular ischemic changes. The yi-white differentiation is maintained. No hemorrhage. No edema. Ventricles: Normal. No ventriculomegaly. Bones/joints: Unremarkable. No acute fracture. Sinuses: Visualized sinuses are unremarkable. No fluid levels. Mastoid air cells: Visualized mastoid air cells are well aerated. Soft tissues: Unremarkable. IMPRESSION: No acute intracranial abnormality. Chronic microvascular ischemic changes. Electronically signed by: Hebert Leija On 11/24/2019 21:37:04 PM
[2019-11-24 21:41] LABS: ABG BASE EXCESS 0.9 (-2.0-2.0); ABG HCO3 24.9 MEQ/L (22.0-26.0); ABG O2 SATURATION 96.8 % (95.0-99.0); ABG PARTIAL PRESSURE CO2 37.6 mmHg (35.0-45.0); ABG PARTIAL PRESSURE O2 83.1 mmHg (75.0-100.0); ABG STANDARD HCO3 25.2 MEQ/L (22.0-26.0); ABG pH (ARTERIAL) 7.438 UNITS (7.350-7.450)
[2019-11-24] MEDS ORDERED: cefTRIAXone SOD 1 GM in D5W MINI-BAG PLUS 50 ML IV ONE (21:45)
[2019-11-24] MEDS ORDERED: AZITHROMYCIN INJ 500 MG, VIAL MATE ADAPTER 1 EACH in D5W 250 ML IV ONE (21:45)
[2019-11-24 22:38] LABS: ACETAMINOPHEN LEVEL < 2.0 UG/ML (10.0-30.0); ALBUMIN 3.3 GM/DL (3.2-5.2); ALT/SGPT 39 U/L (12-78); BILIRUBIN,DIRECT 0.1 MG/DL (0.0-0.2); BILIRUBIN,TOTAL 0.4 MG/DL (0.2-1.0); BLOOD UREA NITROGEN 31 MG/DL (7-18); CALCIUM LEVEL 9.1 MG/DL (8.8-10.2); CARBON DIOXIDE LEVEL 27 MEQ/L (21-32); CHLORIDE LEVEL 105 MEQ/L (98-107); CREATININE FOR GFR 1.19 MG/DL (0.70-1.30); ETHYL ALCOHOL (ETHANOL) < 0.003 % (0.000-0.010); GLOMERULAR FILTRATION RATE > 60.0 (>49); GLUCOSE, FASTING 107 MG/DL (70-100); SALICYLATE LEVEL < 1.7 MG/DL (5.0-30.0); SODIUM LEVEL 141 MEQ/L (136-145); TOTAL PROTEIN 6.6 GM/DL (6.4-8.2)
[2019-11-24] MEDS ORDERED: MULTCAP PO (22:51)
[2019-11-24] MEDS ORDERED: GLIP5TAB8 PO (22:51)
[2019-11-24] MEDS ORDERED: D31000TA2 PO (22:55)
[2019-11-24] MEDS ORDERED: GLUCAGON INJ 1MG VIAL SC PRN (23:15)
[2019-11-24] MEDS ORDERED: GLUCOSE 4GM CHEW TABLET PO PRN (23:15)
[2019-11-24] MEDS ORDERED: DEXTROSE 50% 50 ML SYRINGE IV PRN (23:15)
[2019-11-25] VITALS: BP 114/77
--- NOTE | 2019-11-25 00:10 | HPEPDOC ---
[facility] [place] Medical History & Physical Date of Admission Nov 24, 2019 Date of Service: Nov 24, 2019 Attending Physician: MENA PENA MD History and Physical CHIEF COMPLAINT: Weakness HISTORY OF PRESENT ILLNESS: 69-year-old male with past medical history of CVA, atrial fibrillation not on anticoagulation, diabetes mellitus and hypertension, presents with worsening weakness. Patient is nonverbal at baseline due to CVA, unable to provide any information, history obtained from over the phone. S he reports progressively worsening aggressive behavior which she attributes to increased stress from people around him having difficulty understanding what he wants. He has also been taking very poor care of himself, disheveled and angry at life in general. She reports having a small confrontation with him earlier today and subsequently he fell when attempting to sit into his chair. She was unable to get him up and required four people to help him get back into his chair. She is his primary [employer] certified network professional and reports increasing difficulty in caring for him and requests placement in a facility for long-term care. PAST MEDICAL HISTORY: 1. CVA. 2. Atrial fibrillation. 3. Diabetes mellitus. 4. Hypertension. PAST SURGICAL HISTORY: 1. Unable to obtain. SOCIAL HISTORY: Current smoker. Previous alcohol use. No drug use FAMILY HISTORY: Unable to obtain ALLERGIES: Please see below. REVIEW OF SYSTEMS: Unable to perform HOME MEDICATIONS: Please see below. PHYSICAL EXAMINATION: VITAL SIGNS: Please see below. GENERAL: No distress, morbidly obese HEENT: Normocephalic, atraumatic, dry mucous membranes NECK: Supple CARDIOVASCULAR EXAMINATION: S1, S2, no murmurs RESPIRATORY EXAMINATION: Scattered rhonchi, poor air movement, diminished in the bases ABDOMINAL EXAMINATION: Soft, nontender, nondistended, positive bowel sounds EXTREMITIES: Bilateral lotion with pitting edema SKIN: Extensive scaling NEUROLOGICAL EXAMINATION: Unable to assess PSYCHIATRIC EXAMINATION: Anxious LABORATORY DATA: See below. IMAGING: CT head negative for acute pathology, chest x-ray showing atelectasis MICROBIOLOGY: Please see below. ASSESSMENT: 69-year-old nonverbal male with past medical history of CVA, atrial fibrillation, diabetes mellitus and hypertension is being admitted for physical deconditioning and possibly requiring long-term placement. PLAN: 1. Physical deconditioning. Lives with who is his primary [employer] certified network professional, unable to care for him any longer given his worsening aggressive behavior, size/weight and her older age, social service worker to assess for long-term placement options. PT eval 2. Atrial fibrillation. Not on coagulation due to excessive bruising, continue home aspirin, metopr olol for rate control. 3. Diabetes mellitus. Sliding scale insulin coverage with meals and at bedtime 4. Hypertension. Continue metoprolol 5. History of CVA. Nonverbal at baseline, continue aspirin. DVT prophylaxis: Heparin subcutaneous GI prophylaxis: Not needed Vital Signs Vital Signs Date Time Temp Pulse Resp B/P (MAP) Pulse Ox O2 Delivery O2 Flow Rate FiO2 11/24/19 20:50 98.4 95 18 129/58 (81) 96 Room Air Laboratory Data Labs 24H Laboratory Tests 2 11/24/19 21:23: Immature Granulocyte % (Auto) 0.5, Neutrophils (%) (Auto) 82.0H, Lymphocytes (%) (Auto) 9.9L, Monocytes (%) (Auto) 5.5H, Eosinophils (%) (Auto) 1.6, Basophils (%) (Auto) 0.5, Neutrophils # (Auto) 7.9, Lymphocytes # (Auto) 1.0L, Monocytes # (Auto) 0.5, Eosinophils # (Auto) 0.2, Basophils # (Auto) 0.1, Nucleated Red Blood Cells % (auto) 0.0, Anion Gap 9, Glomerular Filtration Rate > 60.0, Lactic Acid Level 0.9, Calcium Level 9.1, Total Bilirubin 0.4, Direct Bilirubin 0.1, Aspartate Amino Transf (AST/SGOT) 28, Alanine Aminotransferase (ALT/SGPT) 39, Alkaline Phosphatase 50, Ammonia 16, Total Protein 6.6, Albumin 3.3, Albumin/Globulin Ratio 1.0, Thyroid Stimulating Hormone (TSH) 1.000, Salicylates Level < 1.7L, Acetaminophen Level < 2.0L, Ethyl Alcohol Level < 0.003 11/24/19 21:32: POC Glucose (Misc Panel) 112H, POC Sodium (Misc Panel) 139, POC Potassium (Misc Panel) 4.0, POC Chloride (Misc Panel) 102, POC Total CO2 (Misc Panel) 25.0, POC Blood Urea Nitrogen (Misc Panel 33H, POC Ionized Calcium (Misc Panel) 4.7, POC Creatinine (Misc Panel) 1.1, POC Hematocrit (Misc Panel) 41.0 11/24/19 21:33: POC Troponin I (Misc) 0.01 11/24/19 21:36: Blood Gas Bicarbonate Standard 25.2, Arterial Blood pH 7.438, Arterial Blood Partial Pressure CO2 37.6, Arterial Blood Partial Pressure O2 83.1, Arterial Blood Total CO2 26.0, Arterial Blood HCO3 24.9, Arterial Blood Base Excess 0.9, Arterial Blood Oxygen Saturation 96.8 CBC/BMP Laboratory Tests 11/24/19 21:23 Microbiology Microbiology 11/24/19 Blood Culture, Received Pending 11/24/19 Blood Culture, Received Pending Home Medications Scheduled Ascorbic Acid (Ascorbic Acid) 500 Mg Tablet, 500 MG PO DAILY Aspirin (Aspirin) 325 Mg Tab, 325 MG PO DAILY Cetirizine HCl (Cetirizine HCl) 10 Mg Tab, 10 MG PO DAILY BEFORE BREAKFAST Cholecalciferol (Vitamin D3) (Vitamin D3) 1,000 Unit Tablet, 1,000 UNITS PO DAILY Fluocinonide (Fluocinonide) 0.05% 15GM Oint...g., 1 APLCT TOP DAILY APPLY TO BILATERAL LEGS FROM THE KNEE DOWN AFTER BATHING Glipizide (Glipizide) 5 Mg Tablet, 5 MG PO DAILY Hydrochlorothiazide (Hydrochlorothiazide) 25 Mg Tablet, 25 MG PO DAILY Ketoconazole (Ketoconazole) 15 Gm Cream..g., 1 APLCT TOP DAILY APPLY TO FEET, BETWEEN TOES Metoprolol Tartrate (Metoprolol Tartrate) 25 Mg Tab, 75 MG PO BID SPOUSE STATES PATIENT REFUSES TO TAKE PM DOSE AND WILL ONLY TAKE 2 TABLETS IN THE MORNING Mineral Oil/Petrolatum,White (Hydrocerin Cream) 113 Gm Cream..g., 1 APLCT TOP DAILY APPLY TO FEET Multivitamin (Multivitamins) 1 Each Capsule, 1 CAP PO DAILY Vitamin B Complex/Folic Acid (B-Complex Tablet) 0.4 Mg Tablet, 1 TAB PO DAILY Allergies Coded Allergies: metformin (Verified Adverse Reaction, Intermediate, HTN, 12/07/18) A-FIB/CHADSVASC A-FIB History Current/History of A-Fib/PAF?: Yes Current PO Anticoag Therapy: No Treatment Reason Anticoagulant not given: Other Other reason anticoagulant not: Excessive bruising MENA PENA MD Nov 25, 2019 00:09
[2019-11-25 01:35] LABS: APPEARANCE, URINE HAZY (CLEAR); BACTERIA, URINE AUTO 3+ (NEGATIVE); BILIRUBIN, URINE AUTO NEGATIVE (NEGATIVE); BLOOD, URINE BLOOD NEGATIVE (NEGATIVE); COLOR, URINE YELLOW (YELLOW); GLUCOSE, URINE (UA) AUTO NEGATIVE (NEGATIVE); KETONE, URINE AUTO NEGATIVE (NEGATIVE); LEUKOCYTE ESTERASE, URINE AUTO NEGATIVE (NEGATIVE); NITRITE, URINE AUTO NEGATIVE (NEGATIVE); PROTEIN, URINE AUTO NEGATIVE (NEGATIVE); RBC, URINE AUTO 3 /HPF (0-3); SPECIFIC GRAVITY URINE AUTO 1.016 (1.002-1.035); SQUAMOUS EPITHELIAL CELL UR AU 1 /HPF (0-6); UROBILINOGEN, URINE AUTO 0.2 mg/dL (0.0-2.0); WBC, URINE AUTO 0 /HPF (0-3)
[2019-11-25 06:00] VITALS: BP 116/76
[2019-11-25 06:30] LABS: HEMATOCRIT 38.9 % (42.0-52.0); HEMOGLOBIN 12.2 g/dl (13.5-17.5); MEAN CORPUSCULAR HEMOGLOBIN 25.5 pg (27.0-33.0); MEAN CORPUSCULAR HGB CONC 31.4 g/dl (32.0-36.5); MEAN CORPUSCULAR VOLUME 81.2 fl (80.0-96.0); PLATELET COUNT, AUTOMATED 142 10^3/uL (150-450); RED BLOOD COUNT 4.79 10^6/uL (4.30-6.10); WHITE BLOOD COUNT 10.8 10^3/uL (4.0-10.0)
[2019-11-25 07:23] LABS: ALBUMIN 3.2 GM/DL (3.2-5.2); ALT/SGPT 33 U/L (12-78); BILIRUBIN,TOTAL 0.6 MG/DL (0.2-1.0); BLOOD UREA NITROGEN 25 MG/DL (7-18); CARBON DIOXIDE LEVEL 28 MEQ/L (21-32); CHLORIDE LEVEL 105 MEQ/L (98-107); CREATININE FOR GFR 1.04 MG/DL (0.70-1.30); GLOMERULAR FILTRATION RATE > 60.0 (>49); GLUCOSE, FASTING 125 MG/DL (70-100); POTASSIUM SERUM 3.7 MEQ/L (3.5-5.1); SODIUM LEVEL 137 MEQ/L (136-145); TOTAL PROTEIN 6.9 GM/DL (6.4-8.2)
[2019-11-25] MEDS: NYSTATIN 100,000 UNITS/GM TOPICAL PWD 15 GM TOP SCH ×2 (10:05→20:52)
[2019-11-25] MEDS: HumaLOG INSULIN (NovoLOG) PER UNIT SC SCH ×4 (10:05→20:45)
[2019-11-25] MEDS: HEPARIN SOD (PORCINE) 5000UNITS/ML 1ML VIAL/SYRINGE SC SCH ×2 (10:05→20:51)
--- NOTE | 2019-11-25 11:53 | REP ---
REASON: Altered mental status. COMPARISON: Multiple, the latest 05/23/2019. The technique utilized in obtaining the radiograph has magnified the cardiac silhouette and accentuated the interstitial markings. The interstitial markings are again diffusely increased. No patchy parenchymal opacities or pleural effusions have developed. The cardiac silhouette is again magnified by technique. Mild cardiomegaly cannot be ruled out. There is no change in the osseous structures. IMPRESSION: Stable appearing chronic changes. Electronically Signed by Ashwin Yates DO 11/25/2019 11:59 A
[2019-11-25 14:00] VITALS: BP 131/59
--- NOTE | 2019-11-25 14:11 | IPNPDOC ---
Text Note Date of Service The patient was seen on 11/25/19. NOTE Subjective: Patient is somnolent in the morning, nonverbal Objective: PHYSICAL EXAMINATION: VITAL SIGNS: Please see below. GENERAL: No distress, morbidly obese HEENT: Normocephalic, atraumatic, dry mucous membranes NECK: Supple CARDIOVASCULAR EXAMINATION: S1, S2, no murmurs RESPIRATORY EXAMINATION: Scattered rhonchi, poor air movement, diminished in the bases ABDOMINAL EXAMINATION: Soft, nontender, nondistended, positive bowel sounds EXTREMITIES: Bilateral lotion with pitting edema SKIN: Extensive scaling NEUROLOGICAL EXAMINATION: Unable to assess PSYCHIATRIC EXAMINATION: Anxious ASSESSMENT: 69-year-old nonverbal male with past medical history of CVA, atrial fibrillation, diabetes mellitus and hypertension is being admitted for physical deconditioning and possibly requiring long-term placement. Deconditioning Secondary to CVA PT/OT Atrial fibrillation Not currently on the anticoagulation due to extensive subcutaneous hemorrhage in the past Diabetes mellitus Insulin sliding scale Diabetes diet Hypertension Blood pressures under control Continue home meds History of CVA Nonverbal at baseline, continue aspirin. VS,Fishbone, I+O VS, Fishbone, I+O Laboratory Tests 11/24/19 21:23 11/25/19 06:00 Vital Signs Date Time Temp Pulse Resp B/P (MAP) Pulse Ox O2 Delivery O2 Flow Rate FiO2 11/25/19 06:00 98.4 95 24 116/76 (89) 90 Room Air I&O- Last 24 Hours up to 6 AM 11/25/19 06:00 Intake Total 1175 ml Output Total 1900 ml Balance -725 ml PAUL HERNANDEZ DO Nov 25, 2019 14:11
--- NOTE | 2019-11-25 16:01 | ECGEPIP ---
[facility] - ED Test Date: 2019-11-24 Pat Name: MALIA RUANO Department: Room: [place] [address] Gender: Male Hook Tender: : 1950 Requested By: GEMMA LONG Order Number: [id number] Reading MD: Best Liu Measurements Intervals [place] Rate: 89 P: 24 AL: 142 QRS: -42 QRSD: 146 T: 29 QT: 380 QTc: 465 Interpretive Statements SINUS RHYTHM WITH OCCASIONAL SUPRAVENTRICULAR PREMATURE COMPLEXES RBBB and LAFB Prolonged QTc interval Similar to tracing done 05-24-19 Electronically Signed on 11-25-2019 16:01:39 EDT by Best Liu
[2019-11-25 22:00] VITALS: BP 121/59
[2019-11-26 06:00] VITALS: BP 120/57
[2019-11-26] MEDS: HumaLOG INSULIN (NovoLOG) PER UNIT SC SCH ×4 (07:30→21:00)
[2019-11-26] MEDS: HEPARIN SOD (PORCINE) 5000UNITS/ML 1ML VIAL/SYRINGE SC SCH ×2 (08:32→20:01)
[2019-11-26] MEDS: NYSTATIN 100,000 UNITS/GM TOPICAL PWD 15 GM TOP SCH ×2 (08:33→20:00)
[2019-11-26] MEDS ORDERED: ASPIRIN ENTERIC 325 MG TAB PO SCH (09:00)
[2019-11-26] MEDS: VANCOMYCIN HCL 1,000 MG, VIAL MATE ADAPTER 1 EACH in D5W 250 ML IV SCH ×3 (09:27→17:43)
[2019-11-26 09:33] LABS: C REACTIVE PROTEIN QUANTITATIV 8.71 MG/DL (0.00-0.30)
[2019-11-26 09:44] LABS: BLOOD UREA NITROGEN 17 MG/DL (7-18); CALCIUM LEVEL 8.6 MG/DL (8.8-10.2); CARBON DIOXIDE LEVEL 25 MEQ/L (21-32); CHLORIDE LEVEL 104 MEQ/L (98-107); CREATININE FOR GFR 0.96 MG/DL (0.70-1.30); GLOMERULAR FILTRATION RATE > 60.0 (>49); GLUCOSE, FASTING 156 MG/DL (70-100); POTASSIUM SERUM 3.8 MEQ/L (3.5-5.1); SODIUM LEVEL 138 MEQ/L (136-145)
[2019-11-26] MEDS ORDERED: METOPROLOL TART 25 MG TABLET PO ONE (10:45)
--- NOTE | 2019-11-26 11:12 | IPN ---
DATE OF SERVICE: 11/26/2019 The patient communicates by writing. He complains of pain 7/10 at the left elbow with drainage. Said that he fell on that on Monday. Afebrile. No chills. Blood culture positive for methicillin-susceptible Staphylococcus aureus (MSSA). Currently, on vancomycin. Orthopedics consulted for incision and drainage and wound care. Gram stain and culture and sensitivity to be sent.Per Rn, pt had coughing fit after lunch, turned red, and currently on continuous pulse ox. awaiting swallow eval to rule out aspiration risk. Temperature 97.2, pulse 84, respiratory rate 21, blood pressure 120/57, 92% on room air. General: Awake, alert, oriented to person. The patient has slurred speech. Communicates using a pen and paper. The patient is morbidly obese. Moist mucous membranes. Drooling at the bedside. No jugular venous distention (JVD) or thyromegaly. Thick neck. Lungs: Diminished. Bilateral wheezing. Coarse rhonchi. Heart: S1, S2, sinus rhythm. Abdomen: Reducible abdominal hernia. No rebound or guarding. Positive bowel sounds. Extremities: 2+ pitting edema. Left elbow: Significant tenderness, purulent drainage and erythema. Left lateral ankle with open ulcer, chronic venous stasis dermatitis. Complete blood count (CBC): White count 10.8, sedimentation rate of 39, platelet count 142, CRP of 8.7. Staphylococcus aureus blood culture, two sets. IMAGING: CT head: No acute intracranial abnormality. Chest x-ray: Stable chronic changes. ASSESSMENT AND PLAN: A 69-year-old male with history of atrial fibrillation (AFib), cerebrovascular accident (CVA), slurred speech with expressive aphasia, communicates by writing, not on anticoagulation, diabetes, hypertension, presented with fall, weakness. Had a left elbow wound, now with abscess. IMPRESSION: 1. Left elbow abscess. Rule out septic arthritis. Orthopedic surgery has been consulted. Dr. Melo for incision and drainage. Currently on intravenous (IV) vancomycin, dosed by pharmacy. Infectious disease has been consulted. 2. Methicillin-susceptible Staphylococcus aureus (MSSA) bacteremia, most likely secondary to left elbow abscess. Currently on IV vancomycin. Will repeat blood cultures. Planned an echocardiogram to rule out endocarditis. Check serial erythrocyte sedimentation rate (ESR), C-reactive protein (CRP). 3. Expressive aphasia due to cerebrovascular accident (CVA) with chronic atrial fibrillation, not on anticoagulation. Communicates using a pen and paper. 4. Deconditioning with recurrent falls. CT of the head had no acute abnormality from history of CVA and atrial fibrillation (AFib). Was not hypoglycemic on arrival. Acute rehabilitation unit (ARU) consult and physical therapy (PT) evaluation. 5. Chronic atrial fibrillation, not on anticoagulation due to excessive bruising. Continued on home aspirin. Metoprolol for rate control. 6. History of cerebrovascular accident. ARU consult. Only on aspirin. 7. Type 2 diabetes. On sliding scale. Check A1c. 8. Hypertension. On chronic metoprolol. 9. Dysphagia due to CVA with coughing fit after lunch. keep npo. await swallow eval. aspiration precautions. MTDD
--- NOTE | 2019-11-26 11:24 | REP ---
LEFT ELBOW, FOUR VIEWS: Four views of the left elbow performed. There appear to be tendinous calcifications adjacent to the olecranon with suspected avulsion fracture of the olecranon. There is soft tissue swelling at that location. I see no other evidence of acute fracture or dislocation. There are tendinous calcifications noted along the humeral condyles and at the coronoid process. IMPRESSION: Tendinous calcifications and suspected avulsion fracture at the olecranon with associated soft tissue swelling. Electronically Signed by Konstantin Olvera MD 11/27/2019 04:35 P
[2019-11-26] MEDS: FUROSEMIDE 40MG/4ML VIAL (J1940) IV SCH ×2 (12:01→19:05)
--- NOTE | 2019-11-26 12:09 | REP ---
CT LEFT ELBOW: Axial CT left elbow performed with sagittal and coronal reconstruction images. The study is limited due to patient motion. Multiple small calcific densities are seen adjacent to the olecranon. I suspect most of these represent small tendinous and soft tissue calcifications. I cannot exclude a tiny avulsion fracture of the olecranon. Elsewhere, there is no other evidence of acute fracture or dislocation. There is mild diffuse spurring at the margins of the joint. No osseous destruction or periosteal reaction is seen. There is focal soft tissue swelling over the olecranon. Electronically Signed by Konstantin Olvera MD 11/27/2019 04:36 P
[2019-11-26] MEDS: ASPIRIN 325 MG TAB PO SCH (12:11)
[2019-11-26] MEDS: METOPROLOL TART 50 MG TAB PO SCH (12:14)
[2019-11-26] MEDS ORDERED: guaiFENesin DM LIQ 10ML UD PO PRN (12:15)
[2019-11-26] MEDS ORDERED: guaiFENesin DM LIQ 10ML UD PO ONE (12:30)
[2019-11-26] MEDS: LEVALBUTEROL 1.25 MG/0.5 ML CONCENTRATE NEB INH SCH ×2 (13:15→18:02)
[2019-11-26 14:00] VITALS: BP 107/57
--- NOTE | 2019-11-26 14:34 | IPNPDOC ---
Date Seen The patient was seen on 11/26/19. Progress Note Medical clearance for incision and drainage of left elbow abscess -pt has no acute ischemic symptoms, and denies any chest pain, pressure, tightness, or PNR, orthopnea. -pt is medically stable to proceed to OR for surgical debridement, incision and drainage. VS, I&O, 24H, Fishbone Vital Signs/I&O Vital Signs Date Time Temp Pulse Resp B/P (MAP) Pulse Ox O2 Delivery O2 Flow Rate FiO2 11/26/19 12:14 86 118/58 11/26/19 06:00 97.2 21 93 Room Air I&O- Last 24 Hours up to 6 AM 11/26/19 06:00 Intake Total 1390 ml Output Total 3150 ml Balance -1760 ml Laboratory Data 24H LABS Laboratory Tests 2 11/25/19 16:42: Bedside Glucose (Misc Panel) 116H 11/25/19 20:44: Bedside Glucose (Misc Panel) 165H 11/26/19 05:46: Bedside Glucose (Misc Panel) 91 11/26/19 08:51: Erythrocyte Sedimentation Rate 39H, Anion Gap 9, Glomerular Filtration Rate > 60.0, Calcium Level 8.6L, C-Reactive Protein, Quantitative 8.71H 11/26/19 11:02: Methicillin-Resist S.aureus DNA PCR NOT DETECTED 11/26/19 11:55: Bedside Glucose (Misc Panel) 143H CBC/BMP Laboratory Tests 11/26/19 08:51 Microbiology Microbiology 11/26/19 Gram Stain - Final, Resulted 11/26/19 Wound Culture, Resulted Pending 11/26/19 Blood Culture, Received Pending 11/26/19 Blood Culture, Received Pending 11/25/19 Blood Culture, Received Pending 11/25/19 Urine Culture, Received Pending 11/24/19 Blood Culture - Preliminary, Resulted Staphylococcus Aureus 11/24/19 Blood Culture - Preliminary, Resulted Staphylococcus Aureus SIERRA LIRIANO MD Nov 26, 2019 14:34
--- NOTE | 2019-11-26 15:03 | ECHO ---
DATE OF STUDY: 11/26/2019 REFERRING PHYSICIAN: Dr. Sindi Tello INDICATION: Bacteremia. HEIGHT: 173 cm WEIGHT: 121 kg 2-D MEASUREMENTS: Ventricular septum: 1.15 cm Posterior wall: 1.15 cm Left ventricle diastole: 5.3 cm Left atrium: 4.2 cm Proximal ascending aorta: 3.3 cm Aortic root: 3.7 cm Aortic annulus: 2.7 cm Inferior vena cava: 1.6 cm (more than 50% respiratory variation) DOPPLER MEASUREMENTS: No aortic regurgitation. Aortic valve velocity: 97.6 cm/sec LVOT velocity: 80.3 cm/sec No mitral regurgitation. Mitral E velocity: 73.3 cm/sec Mitral A velocity: 59.1 cm/sec Mitral deceleration time: 143 ms Trace tricuspid regurgitation. Trace pulmonic regurgitation. Pulmonary artery acceleration time: 111 ms MITRAL ANNULAR TISSUE DOPPLER E prime septal: 8.7 cm/sec E prime lateral: 10.8 cm/sec DESCRIPTION: The rhythm was sinus with left bundle branch block (LBBB) morphology. This was a moderately technically difficult echocardiogram, which was performed with the patient in the supine position. CONCLUSIONS: 1. No vegetations observed. 2. Normal left ventricular internal dimensions and wall thickness. Normal regional LV wall motion and wall thickening. Normal LV systolic function. Left ventricular ejection fraction (LVEF) 65% by visual estimate. No paradoxical septal motion was appreciated. Normal LV diastolic function. 3. No pericardial effusion. 4. Mild mitral annular calcification. No mitral regurgitation. 5. Mild aortic valve sclerosis with a 3-cusp aortic valve. No aortic regurgitation. 6. Lipomatous hypertrophy of the anterior atrial septum. 7. Normal inferior venal cava size and respiratory variation suggestive of normal central venous pressure (5-10 mmHg).
[2019-11-26 15:35] LABS: INR 1.1; PROTHROMBIN TIME 13.9 SECONDS (11.8-14.0)
[2019-11-26 15:36] LABS: PARTIAL THROMBOPLASTIN TIME 23.8 SECONDS (25.0-38.4)
[2019-11-26 18:34] LABS: BLOOD UREA NITROGEN 19 MG/DL (7-18); CALCIUM LEVEL 8.6 MG/DL (8.8-10.2); CARBON DIOXIDE LEVEL 27 MEQ/L (21-32); CHLORIDE LEVEL 104 MEQ/L (98-107); CREATININE FOR GFR 0.91 MG/DL (0.70-1.30); GLOMERULAR FILTRATION RATE > 60.0 (>49); GLUCOSE, FASTING 126 MG/DL (70-100); POTASSIUM SERUM 4.3 MEQ/L (3.5-5.1); SODIUM LEVEL 137 MEQ/L (136-145)
[2019-11-26] MEDS ORDERED: VANCOMYCIN HCL 1,000 MG, VIAL MATE ADAPTER 1 EACH in D5W 250 ML IV SCH (19:00)
[2019-11-26] MEDS: LACTIC ACID 12% LOTION 225 GM BTL TOP SCH (19:04)
[2019-11-26] MEDS ORDERED: VANCOMYCIN HCL 500 MG in D5W MINI-BAG PLUS 100 ML IV SCH (20:00)
[2019-11-26] MEDS ORDERED: METOPROLOL TART 25 MG TABLET PO SCH (21:00)
[2019-11-26 22:00] VITALS: BP 111/56
--- NOTE | 2019-11-26 23:25 | IPN ---
DATE: 11/26/2019 INFECTIOUS DISEASE CONSULTATION Asked to consult by hospitalist for evaluation of Staphylococcus (staph) aureus bacteremia. HISTORY OF PRESENT ILLNESS: Mr. Schuler is a 69-year-old gentleman with a history of CVA and expressive aphasia. He is not able to give much of a history except for answering appropriately questions. The patient fell due to generalized weakness and landed on his left side. He was found to have redness of the left elbow. An x-ray was done, showed possibly avulsion fracture, and a CT of the left arm done showed calcific tendonitis and soft tissue swelling. The patient has been afebrile since admission. He had positive blood culture for staph aureus and has been on IV vancomycin. The patient was seen by Dr. Nestor Melo for evaluation of left elbow and possible surgical drainage. The patient is able to move his left arm without any pain. He is able to carry his board to write instructions because that is his way of communicating. PAST MEDICAL HISTORY: CVA with expressive aphasia. Atrial fibrillation. Diabetes mellitus. Hypertension. Morbid obesity. Venous stasis changes. PAST SURGICAL HISTORY: Nonrevealing. SOCIAL HISTORY: He is a smoker. He has a history of alcohol use. No drug use. He is , lives with his , but there was concern of not being able to take care of him and placement issue to a long-term facility. MEDICATIONS: - vancomycin 1 gram IV every 8 hours - Xopenex 12.5 mg IV every 4 hours as needed - Lasix 40 mg IV every 8 hours - metoprolol 50 mg by mouth daily - aspirin 325 mg by mouth daily - nystatin topical twice a day ALLERGIES: METFORMIN. LABORATORY DATA: White count was 9.6 on 11/24/2019, 10.8 today. Hemoglobin 12.2, hematocrit 38.9, platelets 142. ESR 39. Sodium 138, potassium 3.8, chloride 104, bicarbonate 25, BUN 17, creatinine 0.96, glucose 156, calcium 8.6, lactic acid was 0.9, CRP 8.71, total protein 6.9, albumin 3.2, TSH 1. PT 13.9, PTT 23.8. Urinalysis has 0 white cells. Methicillin-resistant Staphylococcus aureus (MRSA) screen was negative. Blood cultures, two sets drawn on 11/24/2019, although timed at the same 2123 hours, positive for staph aureus. Urine culture is pending from 11/25/2019. Blood culture from 11/25/2019 and 11/26/2019 are still pending. Left elbow Gram stain has no cells, no organisms seen, culture is pending. IMAGING STUDIES: Elbow x-ray: There is a question of avulsion fracture and calcific tendonitis. CT extremity shows soft tissue swelling. Chest x-ray on 11/24/2019 shows stable appearing chronic changes. Head CT without contrast showed chronic microvascular ischemic changes. No hemorrhage. No edema. No acute abnormalities. On physical exam, obese gentleman. No acute distress. Able to communicate by writing. He has been afebrile in the past 48 hours. He has not had a fever since admission. Temperature is 98, pulse 68, respirations 20, blood pressure 107/57, oxygen saturation 91% on room air. Heart: Normal, S1, S2. No murmurs appreciated, regular. Lungs: Diminished breath sounds at the bases with few expiratory rhonchi. No wheezes or rales. Abdomen: Morbidly obese, soft, nontender with a reducible hernia in the left lower quadrant. Extremities: Bilateral lower extremity trace edema with venous stasis changes. He has a small ulceration on the left lower extremity measuring 1 cm with minimal purulent discharge. Skin: Has extensive scaling, especially on the feet, dry calluses of both heels, scabs on both knees, probably from falls. Neurologic Exam: Cranial nerves are intact except for expressive aphasia. Motor strength upper extremities bilaterally are 5/5, lower extremities he can move both legs. Musculoskeletal: Left elbow normal range of motion with erythema of the olecranon bursa with a small sinus tract, minimal serosanguineous discharge on the dressing, slightly tender to touch, warm, but normal range of motion. IMPRESSION: This is a 69-year-old gentleman admitted after a fall who was found to have staph aureus bacteremia with left elbow olecranon bursitis. He probably has a small abscess in the olecranon bursa but with normal range of motion, this does not seem that he needs surgical drainage at this time. Hopefully this will drain spontaneously through the small opening. He is currently on IV vancomycin. Methicillin-resistant Staphylococcus aureus (MRSA) screen was negative. If cultures are positive for methicillin-sensitive Staphylococcus aureus (MSSA), please switch the patient to cefazolin or nafcillin. PLAN: Case discussed with Dr. Melo. I do not see an indication for surgical intervention at this time. Please use warm soaks on left elbow, continue with Optifoam dressing. Echocardiogram: Reviewed. Done by Dr. Moore. No vegetation seen. Normal ejection fraction 65%. No paradoxical septal motion. No pericardial effusion. Mild mitral annular calcification, mild aortic sclerosis. No stenosis, no regurgitation. At this point, I would not recommend a transesophageal echocardiogram (BARBARA). He has uncomplicated staph aureus bacteremia, meaning he does not have a pacemaker defibrillator or valve replacement, he has no foreign body. Unless his blood cultures are persistently positive after 72 hours, which means his blood cultures from 11/25/2019 and 11/26/2019, on appropriate antibiotics are still positive, then I would recommend a BARBARA. Continue IV vancomycin and until results of culture, then de-escalate if possible to cefazolin or nafcillin if blood cultures are MSSA. Thank you for the consult.
--- NOTE | 2019-11-26 23:44 | HPE ---
DATE OF ADMISSION: 11/26/2019 CHIEF COMPLAINT: Left elbow drainage. HISTORY OF THE PRESENT ILLNESS: This 69-year-old male was seen at the request of Dr. Tello, the hospitalist, who is managing this man's care. Unfortunately, he has had a CVA in the past and he is aphasic, so he is difficult to communicate with, and the history is from the combined notes from the hospitalists, as well as speaking to Dr. Tello directly. Apparently this man has had a fall onto his left elbow with recent pain and drainage. I was asked to see him in assessment and consultation, along with Dr. Hoffman, the infectious disease specialist. PAST MEDICAL HISTORY: Includes CVA, atrial fibrillation, diabetes, hypertension. PAST SURGICAL HISTORY: Unable to obtain. MEDICATIONS: Include metoprolol, vancomycin, dextromethorphan, levalbuterol, furosemide, aspirin, heparin, insulin. ALLERGIES: To METFORMIN. SOCIAL HISTORY: He is a current smoker. Previous alcohol use. No drug use. PHYSICAL EXAMINATION: Vital signs: Temperature 98.0. Blood pressure 107/57, pulse rate 68, respiratory rate 20, 91% on room air. He is sitting up in bed. He is able to follow commands. He is able to nod and shake no. His left elbow has some very mild redness and warmth located to approximately 2 inches in diameter, a circular area in the posterior aspect of the elbow. There is one small 1 mm hole break in the soft tissue at the tip of the elbow. I was unable to express any purulence. There does appear to be some mild sanguinous drainage there. He had a dressing that was moderately saturated. No obvious pus was coming out from that area. His elbow has full active and passive range of motion, 0 to 135 degrees without evidence of pain to the patient or discomfort. He had normal sensation and motor function of the hand. Normal sensation MRU and good motor function of the same plus posterior interosseous nerve/anterior interosseous nerve (PIN/AIN) nerve distributions. Hands are warm and well perfused, strong radial pulse. No obvious other warm, swollen joints. Laboratory examination revealed WBC count of initially 9.6 to 10.8 yesterday. He has an ESR of 39 today. His CRP was 8.71. Blood cultures from 11/24/2019 were positive for gram positive cocci in clusters, Staphylococcus aureus. Elbow x-ray from 11/26/2019 demonstrates tendinous calcification and suspected avulsion fracture the olecranon with associated soft tissue swelling. A CT scan of the elbow has also been obtained. The study is limited due to patient motion. I agree with the radiologist's interpretation. There are multiple small calcific densities adjacent to the olecranon. Cannot exclude a tiny avulsion fracture of the olecranon. Elsewhere there is no other evidence of acute fracture or dislocation. There is mild diffuse spurring at the margin of the joint. No osseous destruction or periosteal reaction seen. There is focal soft tissue swelling over the olecranon. It is my own interpretation there does not appear to be a fluctuant fluid collection on the CT scan. ASSESSMENT/PLAN: This 69-year-old man has a mild soft tissue cellulitis of his left elbow. There is a pinhole size area of drainage at the tip of the elbow as well. The patient has already been started on vancomycin. Per my own conversation with Dr. Hoffman, it is my opinion that it would not be in this man's best interest to perform a formal irrigation and debridement of the left elbow given my overall extremely low clinical suspicion of a septic joint. There is no obvious fluid collection to the elbow to drain. Making an incision in the elbow in this man would be difficult to heal. I recommend daily dressing changes, antibiotics per the infectious disease specialist, and watchful waiting to ensure that this is resolving with serial ESR and CRP blood work.
[2019-11-27] MEDS: LEVALBUTEROL 1.25 MG/0.5 ML CONCENTRATE NEB INH SCH ×6 (00:54→23:26)
[2019-11-27] MEDS: VANCOMYCIN HCL 1,000 MG, VIAL MATE ADAPTER 1 EACH in D5W 250 ML IV SCH (01:37)
[2019-11-27 03:58] VITALS: BP 124/77
[2019-11-27] MEDS: FUROSEMIDE 40MG/4ML VIAL (J1940) IV SCH ×2 (04:14→11:00)
[2019-11-27 06:00] VITALS: BP 110/64
[2019-11-27] MEDS: HumaLOG INSULIN (NovoLOG) PER UNIT SC SCH ×4 (07:30→21:00)
[2019-11-27] MEDS ORDERED: ISOVUE-370 76% 100ML VIAL As Ordered ONE (07:55)
[2019-11-27] MEDS: TIOTROPIUM INHALER/CAPSULE (SPIRIVA) INH SCH (08:00)
[2019-11-27] MEDS: METOPROLOL TART 50 MG TAB PO SCH (09:00)
[2019-11-27] MEDS: MONTELUKAST 10 MG TAB PO SCH (09:00)
[2019-11-27] MEDS: ASPIRIN 325 MG TAB PO SCH (09:00)
[2019-11-27 09:04] LABS: BASO % 0.3 % (0.0-1.0); EOS # 0.3 10^3/uL (0.0-0.5); EOS % 3.5 % (0.0-3.0); HEMATOCRIT 40.3 % (42.0-52.0); HEMOGLOBIN 12.9 g/dl (13.5-17.5); LYMPH % 11.8 % (24.0-44.0); MEAN CORPUSCULAR HEMOGLOBIN 26.2 pg (27.0-33.0); MEAN CORPUSCULAR VOLUME 81.7 fl (80.0-96.0); MONO # 0.7 10^3/uL (0.0-0.8); MONO % 7.9 % (0.0-5.0); NEUTROPHILS # 6.6 10^3/uL (1.5-8.5); NEUTROPHILS % 75.9 % (36.0-66.0); PLATELET COUNT, AUTOMATED 143 10^3/uL (150-450); RED BLOOD COUNT 4.93 10^6/uL (4.30-6.10); WHITE BLOOD COUNT 8.6 10^3/uL (4.0-10.0)
[2019-11-27 10:01] LABS: BLOOD UREA NITROGEN 19 MG/DL (7-18); CALCIUM LEVEL 9.2 MG/DL (8.8-10.2); CARBON DIOXIDE LEVEL 31 MEQ/L (21-32); CHLORIDE LEVEL 101 MEQ/L (98-107); CREATININE FOR GFR 1.17 MG/DL (0.70-1.30); GLOMERULAR FILTRATION RATE > 60.0 (>49); GLUCOSE, FASTING 129 MG/DL (70-100); NT-PRO BNP 461 PG/ML (<125); POTASSIUM SERUM 3.8 MEQ/L (3.5-5.1); SODIUM LEVEL 139 MEQ/L (136-145)
[2019-11-27] MEDS: NAFCILLIN SOD 2 GM in D5W MINI-BAG PLUS 50 ML IV SCH ×4 (10:59→21:59)
[2019-11-27] MEDS: HEPARIN SOD (PORCINE) 5000UNITS/ML 1ML VIAL/SYRINGE SC SCH ×2 (11:00→21:58)
[2019-11-27] MEDS: NYSTATIN 100,000 UNITS/GM TOPICAL PWD 15 GM TOP SCH ×2 (11:03→21:58)
[2019-11-27] MEDS: LACTIC ACID 12% LOTION 225 GM BTL TOP SCH (11:04)
[2019-11-27 11:07] VITALS: BP 112/72
--- NOTE | 2019-11-27 12:45 | REP ---
CT ABDOMEN AND PELVIS WITHOUT AND WITH IV CONTRAST: HISTORY: Staff bacteremia. Comparison CT study is from June 02, 2016. CT CONTRAST DOSE: 100 mL of intravenous Isovue [address] FINDINGS: Digital preliminary remote coders radiograph is noncontributory. The lung bases are free of infiltrate. There is no evidence of pleural effusion. There are innumerable punctate calcifications distributed throughout the body, tail and head of the pancreas consistent with chronic pancreatitis changes. This is unchanged. There is a small sliding-type hiatal hernia. No hepatic or splenic lesion is seen. There is a stable left adrenal nodule measuring 2.4 cm. Right adrenal gland is unremarkable. No renal or perirenal fluid collection or mass lesion is seen. There is no evidence of hydronephrosis. No retroperitoneal mass is seen. No pelvic mass or abscess is observed. A Keen catheter is seen in the urinary bladder. There is diastases of the rectus abdominis muscles and there appears to be a repaired ventral hernia. There is a persistent defect in the hernia repair and transmitting a small quantity of abdominal fat. IMPRESSION: Hiatal hernia. Chronic pancreatitis type calcifications throughout the pancreas. Stable left adrenal nodule. Ventral hernia repair. Keen catheter. No abnormal fluid collection or abscess seen. Electronically Signed by Yao Cooper MD 11/27/2019 03:00 P
[2019-11-27 14:00] VITALS: BP 112/74
--- NOTE | 2019-11-27 16:29 | IPNPDOC ---
Date Seen The patient was seen on 11/27/19. Progress Note contact information-[facility] [phone] HOME [phone] Per , pt can use thumbs up and thumbs down to do discussions. "tell him to be strong!: agrees with ng tube and peg tube placement if continues to aspirate. She said, proceed with DNR talk w "Casimiro. He can tell you what he wants." requests medicare application to be sent by mail, since she is unable to come to the hospital to pick it up. VS, I&O, 24H, Dhirajbone Vital Signs/I&O Vital Signs Date Time Temp Pulse Resp B/P (MAP) Pulse Ox O2 Delivery O2 Flow Rate FiO2 11/27/19 14:00 98.0 80 20 112/74 (87) 99 11/26/19 14:00 Room Air I&O- Last 24 Hours up to 6 AM 11/27/19 06:00 Intake Total 630 ml Output Total 4500 ml Balance -3870 ml Laboratory Data 24H LABS Laboratory Tests 2 11/26/19 17:56: Anion Gap 6L, Glomerular Filtration Rate > 60.0, Calcium Level 8.6L, Magnesium Level 2.0 11/26/19 21:37: Bedside Glucose (Misc Panel) 118H 11/27/19 08:43: Anion Gap 7L, Glomerular Filtration Rate > 60.0, Calcium Level 9.2, Immature Granulocyte % (Auto) 0.6, Neutrophils (%) (Auto) 75.9H, Lymphocytes (%) (Auto) 11.8L, Monocytes (%) (Auto) 7.9H, Eosinophils (%) (Auto) 3.5H, Basophils (%) (Auto) 0.3, Neutrophils # (Auto) 6.6, Lymphocytes # (Auto) 1.0L, Monocytes # (Auto) 0.7, Eosinophils # (Auto) 0.3, Basophils # (Auto) 0.0, Nucleated Red Blood Cells % (auto) 0.0, CN-Cfq-[id number]-Type Natriuretic Peptide 461H, Vancomycin Level Trough 23.2H 11/27/19 09:53: Bedside Glucose (Misc Panel) 127H 11/27/19 11:22: Bedside Glucose (Misc Panel) 135H CBC/BMP Laboratory Tests 11/26/19 17:56 11/27/19 08:43 Microbiology Microbiology 11/26/19 Gram Stain - Final, Resulted 11/26/19 Wound Culture, Resulted Pending 11/26/19 Blood Culture - Preliminary, Resulted No growth after 24 hours . All specim... 11/26/19 Blood Culture - Preliminary, Resulted No growth after 24 hours . All specim... 11/25/19 Blood Culture - Preliminary, Resulted No growth after 24 hours . All specim... 11/25/19 Urine Culture, Received Pending 11/24/19 Blood Culture - Final, Complete Staphylococcus Aureus 11/24/19 Blood Culture - Final, Complete Staphylococcus Aureus SEIRRA LIRIANO MD Nov 27, 2019 16:29
--- NOTE | 2019-11-27 16:47 | IPN ---
DATE: 11/27/2019 Patient continues to have aspiration. He diuresed well yesterday but still not safe to take any oral intake. Patient is currently on intravenous nafcillin for a left elbow small abscess for olecranon bursitis. No need for debridement per orthopedic surgery and infectious disease. He is afebrile with no chills. This morning insistent on eating lunch. Patient is nothing by mouth due to aspiration risk and refused nasogastric tube. He remains with expressive aphasia and uses his notebook to write for review of systems. No nausea, vomiting. No fever, chills. White count is normal. VITAL SIGNS: Temperature 97.6, pulse 79, respiratory rate 20, blood pressure 110/64, 100% on room air. GENERAL: Patient is awake, alert, oriented to himself with purposeful movements. He has persistent expressive aphasia with slurred speech. No jugular venous distention (JVD) or thyromegaly. Diminished breath sounds with bilateral wheezing. HEART: S1, S2, sinus rhythm. ABDOMEN: Obese, soft, nontender, nondistended. EXTREMITIES: No pitting edema. Chronic venous stasis changes. Multiple excoriations on the forehead and bilateral lower extremities. White count 8.6, hemoglobin 12, hematocrit 40, platelet count 143. Sodium 139, potassium 3.9, chloride 101, bicarbonate 31, BUN 19, creatinine 1.17, glucose 129. BNP of 461. Left elbow wound culture pending. Blood culture November 23: Staphylococcus aureus times two sets, sensitive to oxacillin. ASSESSMENT AND PLAN: This is a 69-year-old male with history of chronic atrial fibrillation, cerebrovascular accident (CVA) with expressive aphasia, expressive aphasia. Communicates by writing. Not on anticoagulation. Diabetes, hypertension, admitted for fall and generalized weakness, found to have small left elbow abscess and olecranon bursitis. Patient was found to grow Staphylococcus aureus, methicillin susceptible. IMPRESSION: 1. Olecranon bursitis with small left elbow abscess, currently with methicillin-sensitive Staphylococcus aureus (MSSA) bacteremia, currently on IV nafcillin, previously on IV vancomycin. Methicillin-resistant Staphylococcus aureus (MRSA) screen was negative. No need for surgical debridement, incision and drainage per orthopedic surgery and infectious disease. 2. Aspiration risk with persistent dysphagia with history of CVA from chronic history of atrial fibrillation. Patient is nonanticoagulated. CT of the head on arrival on 11/24/2019 showed no acute intracranial abnormality. Patient failed a swallow evaluation and refused nasogastric tube. Due to bacteremia, I am reluctant to start the patient on total parenteral nutrition (TPN) for dysphagia. We would prefer nasogastric tube feedings and recheck in a week's time whether the patient's dysphagia improves. If no signs of aspiration, he may be kept on a restricted diet. If patient continues to have persistent aspiration, patient will need a feeding tube. 3. CVA, chronic atrial fibrillation. Only on aspirin. Resume on metoprolol. 4. Lower extremity edema, status post diuresis. 5. Active smoker. Chronic obstructive pulmonary disease (COPD), on nebulizer treatments. Saturating well at 100% on room air. MTDD
[2019-11-27] MEDS ORDERED: predniSONE 20 MG TAB PEG SCH (17:00)
[2019-11-27] MEDS ORDERED: predniSONE 5MG/5ML SOLN ORAL SYRINGE PEG SCH (17:00)
[2019-11-27] MEDS: NICOTINE 14 MG/24 HR TRANSDERMAL TD SCH (18:09)
[2019-11-27] MEDS: methylPREDNISolone 125MG 2ML VIAL IV SCH (18:09)
[2019-11-27 22:00] VITALS: BP 131/71
[2019-11-28] MEDS: methylPREDNISolone 125MG 2ML VIAL IV SCH ×2 (00:23→05:44)
[2019-11-28] MEDS: NAFCILLIN SOD 2 GM in D5W MINI-BAG PLUS 50 ML IV SCH ×4 (02:19→15:29)
[2019-11-28] MEDS: LEVALBUTEROL 1.25 MG/0.5 ML CONCENTRATE NEB INH SCH ×5 (04:00→19:38)
[2019-11-28 06:00] VITALS: BP 131/70
[2019-11-28 07:01] LABS: BASO % 0.2 % (0.0-1.0); HEMATOCRIT 42.5 % (42.0-52.0); HEMOGLOBIN 13.5 g/dl (13.5-17.5); LYMPH # 0.6 10^3/uL (1.5-5.0); LYMPH % 9.5 % (24.0-44.0); MEAN CORPUSCULAR HEMOGLOBIN 25.8 pg (27.0-33.0); MEAN CORPUSCULAR HGB CONC 31.8 g/dl (32.0-36.5); MEAN CORPUSCULAR VOLUME 81.1 fl (80.0-96.0); MONO # 0.1 10^3/uL (0.0-0.8); MONO % 1.2 % (0.0-5.0); NEUTROPHILS # 5.1 10^3/uL (1.5-8.5); NEUTROPHILS % 88.6 % (36.0-66.0); PLATELET COUNT, AUTOMATED 154 10^3/uL (150-450); RED BLOOD COUNT 5.24 10^6/uL (4.30-6.10); WHITE BLOOD COUNT 5.8 10^3/uL (4.0-10.0)
[2019-11-28 07:22] LABS: BLOOD UREA NITROGEN 22 MG/DL (7-18); CALCIUM LEVEL 9.8 MG/DL (8.8-10.2); CARBON DIOXIDE LEVEL 28 MEQ/L (21-32); CHLORIDE LEVEL 102 MEQ/L (98-107); CREATININE FOR GFR 1.18 MG/DL (0.70-1.30); GLOMERULAR FILTRATION RATE > 60.0 (>49); GLUCOSE, FASTING 159 MG/DL (70-100); POTASSIUM SERUM 3.6 MEQ/L (3.5-5.1); PREALBUMIN 15.4 MG/DL (20.0-40.0); SODIUM LEVEL 134 MEQ/L (136-145)
[2019-11-28] MEDS: HumaLOG INSULIN (NovoLOG) PER UNIT SC SCH (07:30)
[2019-11-28] MEDS: TIOTROPIUM INHALER/CAPSULE (SPIRIVA) INH SCH (08:00)
[2019-11-28] MEDS ORDERED: guaiFENesin ER 600 MG TAB PO SCH (09:00)
[2019-11-28] MEDS ORDERED: CETIRIZINE (ZyrTEC) 10 MG TAB PO SCH (09:00)
[2019-11-28] MEDS: NICOTINE 14 MG/24 HR TRANSDERMAL TD SCH ×2 (09:40→10:20)
[2019-11-28] MEDS: NYSTATIN 100,000 UNITS/GM TOPICAL PWD 15 GM TOP SCH ×2 (09:40→21:00)
[2019-11-28] MEDS: HEPARIN SOD (PORCINE) 5000UNITS/ML 1ML VIAL/SYRINGE SC SCH ×3 (09:40→21:01)
[2019-11-28] MEDS: LACTIC ACID 12% LOTION 225 GM BTL TOP SCH (09:41)
[2019-11-28] MEDS: MONTELUKAST 10 MG TAB PO SCH (10:22)
--- NOTE | 2019-11-28 12:04 | IPNPDOC ---
Date Seen The patient was seen on 11/28/19. Progress Note COMFORT MEASURES ONLY, DO NOT RESUSCITATE / DO NOT INTUBATE. MOLST FORM SIGNED Pt adamant about oral intake, despite aspiration risk, and recommendations from speech therapist to all oral intake. was aware that the patient does not want any more evaluation, treatment, and wrote on his clipboard, " [facility]." Plan: Patient's decision has been discussed with pt's , Gretta, and despite his 's urging for the patient to consider continued treatment with antibiotics and feeding tube placement, patient insists on DNR/DNI/COMFORT MEASURES ONLY. HOSPICE consulted. PFS aware. MOLST signed. VS, I&O, 24H, Fishbone Vital Signs/I&O Vital Signs Date Time Temp Pulse Resp B/P (MAP) Pulse Ox O2 Delivery O2 Flow Rate FiO2 11/28/19 06:00 98.0 79 16 131/70 (90) 92 Room Air I&O- Last 24 Hours up to 6 AM 11/28/19 06:00 Intake Total 150 ml Output Total 1150 ml Balance -1000 ml Laboratory Data 24H LABS Laboratory Tests 2 11/27/19 16:26: Bedside Glucose (Misc Panel) 142H 11/27/19 20:26: Bedside Glucose (Misc Panel) 150H 11/28/19 06:30: Immature Granulocyte % (Auto) 0.5, Neutrophils (%) (Auto) 88.6H, Lymphocytes (%) (Auto) 9.5L, Monocytes (%) (Auto) 1.2, Eosinophils (%) (Auto) 0.0, Basophils (%) (Auto) 0.2, Neutrophils # (Auto) 5.1, Lymphocytes # (Auto) 0.6L, Monocytes # (Auto) 0.1, Eosinophils # (Auto) 0.0, Basophils # (Auto) 0.0, Nucleated Red Blood Cells % (auto) 0.0, Anion Gap 4L, Glomerular Filtration Rate > 60.0, Calcium Level 9.8, Prealbumin 15.4L 11/28/19 11:17: Bedside Glucose (Misc Panel) 146H CBC/BMP Laboratory Tests 11/28/19 06:30 Microbiology Microbiology 11/26/19 Gram Stain - Final, Resulted 11/26/19 Wound Culture - Preliminary, Resulted Staphylococcus Aureus 11/26/19 Blood Culture - Preliminary, Resulted No Growth after 48 hours. All Specime... 11/26/19 Blood Culture - Preliminary, Resulted No Growth after 48 hours. All Specime... 11/25/19 Blood Culture - Preliminary, Resulted No Growth after 48 hours. All Specime... 11/25/19 Urine Culture, Received Pending 11/24/19 Blood Culture - Final, Complete Staphylococcus Aureus 11/24/19 Blood Culture - Final, Complete Staphylococcus Aureus SIERRA LIRIANO MD Nov 28, 2019 12:04
[2019-11-28] MEDS ORDERED: LORazepam 1 MG TAB PO PRN (12:15)
[2019-11-28] MEDS ORDERED: ONDANSETRON 4MG/2ML VIAL IV PRN (12:15)
[2019-11-28] MEDS: ASPIRIN 325 MG TAB PO SCH (12:29)
[2019-11-28] MEDS: METOPROLOL TART 50 MG TAB PO SCH (12:30)
--- NOTE | 2019-11-28 17:37 | IPN ---
DATE: 11/28/2019 Overnight patient had been upset about the nothing by mouth status, he had removed his nasogastric tube after it was placed yesterday for nutrition. This morning, patient's was contacted about the patient's decision to be made comfort measures only, DO NOT INTUBATE, DO NOT RESUSCITATE due to progressive expressive aphasia and dysphagia from his CVA. According to the , the patient cannot be anticoagulated due to episodes of massive bleeding. It was decided that he was only to take some aspirin. Per the , the patient responds well by writing even though he does not spell very well and responds well to thumbs up and thumbs down. For the past 3 days, I have discussed with him the ramifications of eating while he is currently an aspiration risk, including pneumonitis, possible pneumonia, hypoxic failure and from asphyxiation. At this time, the patient says that he wants to continue to eat and says thumbs up to no further treatment or evaluation. Patient wrote on his clipboard: [facility]. This has been discussed with the patient's , Gretta, who says that since his stroke, which was debilitating to him, patient has been increasingly dependent on her and requiring help with his activities of daily living (ADLs). Due to this, he has only had meals to look forward to and was a "foodie" before the stroke. Patient does enjoy tasting his food and would never consider a nasogastric tube and feeding tube at any point. This was discussed with him at the bedside yesterday, the day before and again today. The says he responds better with thumbs up and thumbs down. When I asked him whether he would want to eat despite risk of getting food and water into his lungs, as well as causing trouble breathing that may lead to his , patient had thumbs up. I asked him whether he understood that if we placed a feeding tube, we can reevaluate his speech and swallowing in about a week's time. Should he improve, he can resume an oral diet; if not, then the feeding tube will remain in place for nutrition and hydration until he improves. Patient stated thumbs down. When I asked him whether he wants to continue with present treatment, blood tests, evaluation by specialists, patient put a thumbs down. At this time, this was all relayed to the who had said that the patient "knows what he wants." Patient had previously been evaluated for impulsive disorder and threatening his at home [place] [address] Umana[address] says that he was not diagnosed with any psychiatric illness at that time, but he has slowly decreased in his quality of life since his stroke in 2018. [facility] not much [facility] they can [facility] for him, that this could be progressive. He can continue to infarct despite just being on aspirin, and since he has been increasingly dependent on his ADLs, patient has progressively focused on the only thing that gives him pleasure, which would be eating. This morning, with the nurse at the bedside, the patient signed a DO NOT RESUSCITATE, DO NOT INTUBATE, comfort measures only. He was insistent on "eating, living his life the way he wants." Patient continued to reiterate right in the hospital. Family was informed of the patient's decision. Temperature 98, pulse 79, respiratory rate 16, blood pressure 131/70, 92% on room air. Generally, patient has facial asymmetry, slurred speech. Thick neck. No jugular venous distention (JVD) or thyromegaly. Lungs: Diminished with bilateral coarse rales. Heart: S1, S2, sinus rhythm. Abdomen is obese, soft, nontender, nondistended. Extremities: Left elbow has some erythema and serous drainage, decreasing erythema and redness but tender, limited range of motion. Lower extremities: Bilateral chronic venous stasis changes. Noted a 3 cm open wound on the left malleolar site. LABORATORY DATA: White count 5.8, hemoglobin 13, hematocrit 42, platelet count 154. Sodium 134, potassium 3.6, chloride 102, bicarbonate 28, BUN 22, creatinine 1.18, glucose of 159. Wound culture: Staphylococcus aureus of the left elbow. Blood culture: Staphylococcus aureus, resistant to clindamycin, erythromycin, sensitive to nafcillin and tetracycline, resistant to penicillin G. ASSESSMENT AND PLAN: This is a 69-year-old male with a history of CVA with expressive aphasia and progressive dysphagia, now aspiration risk, brought in by family due to recurrent falls, unable to do ADLs at home, for placement. He was noted to have a left elbow abscess with olecranon bursitis, wound culture showing methicillin-sensitive Staphylococcus aureus (MSSA) and bacteremia secondary to MSSA, was placed on intravenous nafcillin from previous vancomycin. Patient was evaluated by both orthopedic surgery as well as identified and did not require any surgical debridement, incision and drainage. CURRENT ISSUES: 1. Left elbow abscess, status post IV vancomycin, currently on nafcillin. Blood cultures remain positive for MSSA, but he has been afebrile with normal white count. 2. Aspiration secondary to progressive dysphagia from a history of CVA and chronic atrial fibrillation with prior history of massive hemorrhage. Patient had not been anticoagulated and had been kept only on an antiplatelet aspirin. Per the , for the past 2-3 years, the patient has had decreasing ability to take care of his ADLs and has been much more dependent on the for care. At this time, patient's quality of life has significantly diminished. He focuses on his meals and would not consider a nasogastric tube or percutaneous endoscopic gastrostomy (PEG) tube to be placed. Currently he wants to eat, and he wants no more evaluation and treatment. He understands that he can develop pneumonitis, hypoxia, and respiratory failure, and does not want to be intubated. This has been discussed with the patient's at home. 3. CVA with expressive aphasia and progressive dysphagia, only on aspirin as the patient has had a history of massive bleeding in the past. 4. Chronic venous stasis with ulcers. The patient has been diuresed and currently significantly improved. 5. Active smoker, chronic obstructive pulmonary disease (COPD). Had been treated for COPD exacerbation due to cough, worsening shortness of breath, and mucus production. Patient currently wants to eat and has been made comfort measures only, hospice consulted and patient and family services (PFS) has been made aware. Medical Orders for Life-Sustaining Treatment (MOLST) form has been signed and dated, witnessed. DNR, DNI, comfort measures only, no feeding tube and no transferring to the hospital. MTDD
--- NOTE | 2019-11-28 18:48 | IPN ---
DATE: 11/28/2019 Mr. Schuler was sitting at his chair. He was ready for dinner. The patient decided to become comfort measures only, as he does not want to be nothing by mouth and he wants to eat. He has recurrent aspiration since his stroke, and would need a gastrostomy (G) tube otherwise. The patient would like to go home on hospice care. There has been discussion with the family. He denies any elbow pain. He has good range of motion. LABORATORY DATA: White count 5.8, hemoglobin 13.5, hematocrit 42.5, platelets 154. ESR 39. Sodium 134, potassium 3.6, chloride 102, bicarbonate 28, BUN 22, creatinine 1.18, glucose 159, calcium 9.8, magnesium 2, CRP 8.71. Blood culture was positive for methicillin-sensitive Staphylococcus aureus (MSSA) on November 23 and negative on November 24 and November 25. Wound culture from the left elbow was positive for MSSA. PHYSICAL EXAMINATION: Temperature is 98, pulse 79, respirations 16, blood pressure 131/70, oxygen saturation 92% on room air. HEART: Normal S1, S2. Distant. LUNGS: Expiratory rhonchi bilaterally. ABDOMEN: Morbidly obese, soft, nontender. EXTREMITIES: Trace edema. Left elbow has a small sinus tract with olecranon bursitis. Erythema has decreased. The range of motion is better. There is some serosanguineous drainage on the Optifoam dressing. IMPRESSION: 1. Olecranon bursitis. Cellulitis of the left arm with MSSA bacteremia, doing much better. The patient will be switched to Augmentin 875 mg by mouth twice a day suspension. 2. Aspiration secondary to progressive dysphagia and cerebrovascular accident (CVA). The patient has decided to eat and not get Gtube so the patient will be going home on hospice. PLAN: Discontinue intravenous (IV) nafcillin. Switch to Augmentin 875 mg by mouth twice a day suspension. The patient will need 2 weeks of oral antibiotics from negative culture. End of treatment would be December 08. Transthoracic echocardiogram was negative for vegetation on November 25 with a normal ventricular function, ejection fraction, and normal valves except for some aortic sclerosis. [facility]
[2019-11-28] MEDS: predniSONE 20 MG TAB PO SCH (21:01)
[2019-11-28] MEDS: AUGMENTIN BID 400MG/5ML SUSP 50ML BTL PO SCH (21:01)
[2019-11-29] MEDS: LEVALBUTEROL 1.25 MG/0.5 ML CONCENTRATE NEB INH SCH ×7 (00:10→23:35)
[2019-11-29] MEDS: TIOTROPIUM INHALER/CAPSULE (SPIRIVA) INH SCH (07:16)
[2019-11-29] MEDS: ASPIRIN 325 MG TAB PO SCH (08:28)
[2019-11-29] MEDS: predniSONE 20 MG TAB PO SCH ×2 (08:28→22:16)
[2019-11-29] MEDS: AUGMENTIN BID 400MG/5ML SUSP 50ML BTL PO SCH ×2 (08:28→22:17)
[2019-11-29] MEDS: MONTELUKAST 10 MG TAB PO SCH (08:29)
[2019-11-29 08:30] VITALS: BP 123/87
[2019-11-29] MEDS: METOPROLOL TART 50 MG TAB PO SCH (08:30)
[2019-11-29] MEDS: HEPARIN SOD (PORCINE) 5000UNITS/ML 1ML VIAL/SYRINGE SC SCH ×2 (08:30→22:17)
[2019-11-29] MEDS: LACTIC ACID 12% LOTION 225 GM BTL TOP SCH (08:31)
[2019-11-29] MEDS: NICOTINE 14 MG/24 HR TRANSDERMAL TD SCH (08:31)
[2019-11-29] MEDS: NYSTATIN 100,000 UNITS/GM TOPICAL PWD 15 GM TOP SCH (08:32)
--- NOTE | 2019-11-29 15:02 | IPNPDOC ---
Date Seen The patient was seen on 11/29/19. Progress Note SUSHMA, , does not want the patient to be DNR/DNI. I have explained to her that her , MALIA RUANO, is at risk of respiratory failure from aspiration because he wants to continue to eat and has repeatedly refused to have NASOGASTRIC TUBE OR FEEDING TUBE. He wrote " Rigt Hopital," on clipboard because he would rather eating and drinking than be kept alive artificially using NG or PEG Tube and prevented from eating or drinking. Patient wanted to be left alone to eat and drink regardless of the harm of choking, getting food in his lungs, and having difficulty breathing which can lead to . He remains an aspiration risk after repeat speech and swallow x2. plan: Malia Ruano understands that eating food through the mouth causes food to go into his lungs, but does not want artificial nutrition via feeding tube either nasogastric or peg tube. He wrote repeatedly " Rigt hopital." He understands that he is getting food and water into his lungs, understands that the consequence is respiratory failure, infection. We have advocated NG tube feedings until repeat swallow evaluation in 7days. If there is no signs of aspiration, he may eat again. If signs of aspiration on repeat swallow evaluation in 7 days, he needs to allow PEG tube placement. I have repeatedly explained to Sushma, that her is adamant about continued oral intake. He demands, "LUNCH, LUNCH," and had tears in his eyes, when he wrote, " Rigt Hopital," when I reiterated that the consequence is respiratory failure. I advised Sushma and her family to try to convince the patient to stop eating , and allow NG tube, PEG to be placed to prevent aspiration. I told Sushma that Malia Ruano has a say on what is done to him. I cannot forcibly place a NG tube or Feeding tube against his will. Sushma says, "well, he says he will make me his power or traffic law attorney." I explained to Sushma that a health care proxy is supposed to carry out the PATIENT'S WISHES, NOT TO OVERTURN THE PATIENT'S WISHES. Knowing that recurrent aspiration can lead to pneumonitis, pneumonia, hypoxia, respiratory failure, and allowing the patient to eat and drink after failing a swallow evaluation, the patient insists "I want eat. rigt hopital." When asked if patient will permit feeding tube, he shakes his head, "no, no, no, no." VS, I&O, 24H, Steff Vital Signs/I&O Vital Signs Date Time Temp Pulse Resp B/P (MAP) Pulse Ox O2 Delivery O2 Flow Rate FiO2 11/29/19 08:30 58 123/87 11/28/19 06:00 98.0 16 92 Room Air I&O- Last 24 Hours up to 6 AM 11/29/19 06:00 Intake Total 1110 ml Output Total 700 ml Balance 410 ml Laboratory Data Microbiology Microbiology 11/26/19 Gram Stain - Final, Complete 11/26/19 Wound Culture - Final, Complete Staphylococcus Aureus 11/26/19 Blood Culture - Preliminary, Resulted No Growth after 72 hours. All specime... 11/26/19 Blood Culture - Preliminary, Resulted No Growth after 72 hours. All specime... 11/25/19 Blood Culture - Preliminary, Resulted No Growth after 72 hours. All specime... 11/25/19 Urine Culture - Final, Complete Corynebacterium Species 11/24/19 Blood Culture - Final, Complete Staphylococcus Aureus 11/24/19 Blood Culture - Final, Complete Staphylococcus Aureus SIERRA LIRIANO MD Nov 29, 2019 15:02
[2019-11-29 22:00] VITALS: BP 110/59
[2019-11-30] MEDS: NYSTATIN 100,000 UNITS/GM TOPICAL PWD 15 GM TOP SCH ×3 (01:21→21:22)
[2019-11-30] MEDS: LEVALBUTEROL 1.25 MG/0.5 ML CONCENTRATE NEB INH SCH ×6 (04:51→23:46)
[2019-11-30] MEDS: TIOTROPIUM INHALER/CAPSULE (SPIRIVA) INH SCH (07:14)
[2019-11-30] MEDS: METOPROLOL TART 50 MG TAB PO SCH (08:26)
[2019-11-30] MEDS: MONTELUKAST 10 MG TAB PO SCH (08:26)
[2019-11-30] MEDS: ASPIRIN 325 MG TAB PO SCH (08:26)
[2019-11-30] MEDS: predniSONE 20 MG TAB PO SCH ×2 (08:26→21:21)
[2019-11-30] MEDS: LACTIC ACID 12% LOTION 225 GM BTL TOP SCH (08:27)
[2019-11-30] MEDS: NICOTINE 14 MG/24 HR TRANSDERMAL TD SCH (08:27)
[2019-11-30] MEDS: AUGMENTIN BID 400MG/5ML SUSP 50ML BTL PO SCH ×2 (08:28→21:22)
[2019-11-30] MEDS: HEPARIN SOD (PORCINE) 5000UNITS/ML 1ML VIAL/SYRINGE SC SCH ×2 (08:28→21:21)
--- NOTE | 2019-11-30 09:23 | IPN ---
DATE: 11/29/2019 Patient is currently DO NOT RESUSCITATE, DO NOT INTUBATE, comfort measures only. Patient wrote on his clipboard - [facility]. Patient has had progressive expressive aphasia and dysphagia with aspiration due to previous CVA. He currently is not anticoagulated, only takes aspirin and has decided on no feeding tube, and despite the risk of dysphagia, wanted to eat orally. Patient signed a DO NOT RESUSCITATE, DO NOT INTUBATE, comfort measures only. Vital Signs: Temperature 98, pulse 79, respiratory rate 16, blood pressure 123/87, 92% on room air. Generally, awake, alert, oriented to person, place and time, answering questions appropriately. Generally, patient has facial asymmetry, slurred speech. Patient has no pain in the left elbow, and has decided that he wants to continue to eat despite risk of aspiration pneumonitis, hypoxic respiratory failure, and wound culture grew out staph aureus. Facial asymmetry with dysphagia and expressive aphasia, slurring of speech. Lungs: Rhonchorous bilaterally. Heart: S1, S2, irregularly irregular. Abdomen is obese, soft, nontender, nondistended. Extremities: No edema. Patient has chronic venous stasis changes. LABORATORY DATA: Reviewed. ASSESSMENT AND PLAN: This is a 69-year-old male with history of CVA, expressive aphasia, dysphagia, and could not be anticoagulated due to massive bleeding in the past, currently only takes aspirin. Patient was admitted for recurrent falls for placement, was found to have an abscess in the left elbow with methicillin-sensitive Staphylococcus aureus (MSSA), as well as an MSSA bacteremia. The patient had insisted after swallow evaluation to eat despite the fact that he is currently aspirating. He was evaluated by speech therapy three times. Patient wrote on his clipboard - [facility]; right in the hospital. He wanted to be DO NOT RESUSCITATE, DO NOT INTUBATE and comfort measures only and currently under comfort measures only. Patient was insistent on eating, living the life the way that he wanted, and he continued to push on his clipboard that says right in hospital. Family was informed of the patient's decision. He has a signed a Medical Orders for Life-Sustaining Treatment (MOLST) form, DO NOT RESUSCITATE, DO NOT INTUBATE and comfort measures only. He is now on a regular diet and still aspirating, continued on Augmentin for his left elbow abscess. CURRENT ISSUES: 1. Aspiration with chemical pneumonitis from progressive dysphagia from CVA and chronic atrial fibrillation that could not be anticoagulated due to history of massive hemorrhage. Despite aspirin, patient continues to have dysphagia with aspiration. He is now comfort measures only. 2. Left elbow abscess. Status post intravenous (IV) vancomycin and nafcillin, now on Augmentin. 3. CVA with progressive dysphagia and expressive aphasia. Insists on no feeding tube placement and wanted to eat; therefore, he has been changed to comfort measures only status. 4. Chronic obstructive pulmonary disease (COPD) exacerbation. Still on Xopenex for comfort. 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 MTDD
--- NOTE | 2019-11-30 10:46 | IPNPDOC ---
Date Seen The patient was seen on 11/30/19. Progress Note RE: code status, disposition plan: patient insists on DNR, DNI, No feeding tube. OXIDE FURNACE TENDER. Family, , Gretta, and 2children disagree with patient's decision. Family encouraged to convince patient to change his mind. will follow patient's wishes. If patient wants feeding tube, active treatment, or be changed back to full code, will discontinue previous MOLST form, and fill out new MOLST. await patient's decision after discussion with his daughter, son, and . unable to care for patient at home, pfs consulted for placement. VS, I&O, 24H, Fishbone Vital Signs/I&O Vital Signs Date Time Temp Pulse Resp B/P (MAP) Pulse Ox O2 Delivery O2 Flow Rate FiO2 11/29/19 22:00 96.9 85 20 110/59 (76) 97 11/28/19 06:00 Room Air I&O- Last 24 Hours up to 6 AM 11/30/19 06:00 Intake Total 1380 ml Output Total 1500 ml Balance -120 ml Laboratory Data Microbiology Microbiology 11/26/19 Gram Stain - Final, Complete 11/26/19 Wound Culture - Final, Complete Staphylococcus Aureus 11/26/19 Blood Culture - Preliminary, Resulted No Growth after 72 hours. All specime... 11/26/19 Blood Culture - Preliminary, Resulted No Growth after 72 hours. All specime... 11/25/19 Blood Culture - Preliminary, Resulted No Growth after 72 hours. All specime... 11/25/19 Urine Culture - Final, Complete Corynebacterium Species 11/24/19 Blood Culture - Final, Complete Staphylococcus Aureus 11/24/19 Blood Culture - Final, Complete Staphylococcus Aureus SIERRA LIRIANO MD Nov 30, 2019 10:45
[2019-12-01] MEDS: LEVALBUTEROL 1.25 MG/0.5 ML CONCENTRATE NEB INH SCH ×6 (04:00→23:31)
[2019-12-01] MEDS: TIOTROPIUM INHALER/CAPSULE (SPIRIVA) INH SCH (07:39)
[2019-12-01] MEDS: HEPARIN SOD (PORCINE) 5000UNITS/ML 1ML VIAL/SYRINGE SC SCH ×2 (08:37→21:00)
[2019-12-01] MEDS: NICOTINE 14 MG/24 HR TRANSDERMAL TD SCH (08:37)
[2019-12-01] MEDS: AUGMENTIN BID 400MG/5ML SUSP 50ML BTL PO SCH ×2 (08:38→21:00)
[2019-12-01] MEDS: ASPIRIN 325 MG TAB PO SCH (08:38)
[2019-12-01] MEDS: MONTELUKAST 10 MG TAB PO SCH (08:38)
[2019-12-01] MEDS: METOPROLOL TART 50 MG TAB PO SCH (08:38)
[2019-12-01] MEDS: predniSONE 20 MG TAB PO SCH ×2 (08:38→21:00)
[2019-12-01] MEDS: NYSTATIN 100,000 UNITS/GM TOPICAL PWD 15 GM TOP SCH ×2 (08:39→21:00)
[2019-12-01] MEDS: LACTIC ACID 12% LOTION 225 GM BTL TOP SCH (08:39)
--- NOTE | 2019-12-01 09:03 | IPNPDOC ---
Date Seen The patient was seen on 12/01/19. Progress Note contact information son MALIA RUANO [phone] Per my discussion with patient's son Malia yesterday, son is supportive of patient's, MALIA RUANO, 1950, decision to -REFUSE FEEDING TUBE, ARTIFICIAL NUTRITION IN THE FORM OF NASOGASTRIC TUBE FEEDING, PEG TUBE FEEDING, OR TOTAL PARENTERAL NUTRITION. -CONTINUE ORAL INTAKE DESPITE ASPIRATION, PNEUMONITIS, PNEUMONIA, HYPOXIA, RESPIRATORY FAILURE, -DO NOT RESUSCITATE should natural with no pulse, not breathing occur -DO NOT INTUBATE should natural with no spontaneous breathing occur. Today, son is to discuss with patient, MALIA RUANO 1950, if the patient would make the son his health care proxy to safeguard his MEDICAL WISHES, since the patient's is REFUSING TO HONOR THE PATIENT'S decision to be DNR/DNI. Per Gretta, patient's , "Well, Malia ( 1950), is going to make me his power of workers compensation defense attorney, so I can make him FULL CODE." I have explained to Gretta, patient's , that Health care proxy is activated ONLY IF THE PATIENT IS UNABLE TO MAKE MEDICAL DECISIONS. HCP is NOT TO IMPOSE HCP's opinion on what is to be done to the patient, or to reverse the PATIENT'S EXPLICIT DECISION ON HIS OWN MEDICAL CARE. The patient has CLEAR WISHES ON DNR/DNI/ no artificial nutrition, and is of right mind and understands the con sequences of his wishes, as documented on his responses handwritten on his clipboard. To protect his father's wishes, son will speak with his father to make him the healthcare proxy today. VS, I&O, 24H, Fishbone Vital Signs/I&O Vital Signs Date Time Temp Pulse Resp B/P (MAP) Pulse Ox O2 Delivery O2 Flow Rate FiO2 11/29/19 22:00 96.9 85 20 110/59 (76) 97 11/28/19 06:00 Room Air I&O- Last 24 Hours up to 6 AM 12/01/19 06:00 Intake Total 480 ml Output Total 550 ml Balance -70 ml Laboratory Data Microbiology Microbiology 11/26/19 Gram Stain - Final, Complete 11/26/19 Wound Culture - Final, Complete Staphylococcus Aureus 11/26/19 Blood Culture - Preliminary, Resulted No Growth after 72 hours. All specime... 11/26/19 Blood Culture - Preliminary, Resulted No Growth after 72 hours. All specime... 11/25/19 Blood Culture - Final, Complete NO GROWTH AFTER 5 DAYS 11/25/19 Urine Culture - Final, Complete Corynebacterium Species 11/24/19 Blood Culture - Final, Complete Staphylococcus Aureus 11/24/19 Blood Culture - Final, Complete Staphylococcus Aureus SIERRA LIRIANO MD Dec 01, 2019 09:03
[2019-12-02] MEDS: LEVALBUTEROL 1.25 MG/0.5 ML CONCENTRATE NEB INH SCH ×6 (03:31→23:38)
[2019-12-02 06:42] LABS: BASO # 0.1 10^3/uL (0.0-0.2); BASO % 0.8 % (0.0-1.0); EOS # 0.3 10^3/uL (0.0-0.5); EOS % 3.8 % (0.0-3.0); HEMATOCRIT 44.4 % (42.0-52.0); HEMOGLOBIN 13.4 g/dl (13.5-17.5); LYMPH # 2.1 10^3/uL (1.5-5.0); LYMPH % 24.6 % (24.0-44.0); MEAN CORPUSCULAR HEMOGLOBIN 25.6 pg (27.0-33.0); MEAN CORPUSCULAR HGB CONC 30.2 g/dl (32.0-36.5); MEAN CORPUSCULAR VOLUME 84.9 fl (80.0-96.0); MONO # 0.5 10^3/uL (0.0-0.8); MONO % 5.2 % (0.0-5.0); NEUTROPHILS # 5.6 10^3/uL (1.5-8.5); NEUTROPHILS % 64.9 % (36.0-66.0); PLATELET COUNT, AUTOMATED 175 10^3/uL (150-450); RED BLOOD COUNT 5.23 10^6/uL (4.30-6.10); WHITE BLOOD COUNT 8.6 10^3/uL (4.0-10.0)
[2019-12-02 07:04] LABS: BLOOD UREA NITROGEN 31 MG/DL (7-18); CALCIUM LEVEL 9.3 MG/DL (8.8-10.2); CARBON DIOXIDE LEVEL 28 MEQ/L (21-32); CHLORIDE LEVEL 107 MEQ/L (98-107); CREATININE FOR GFR 1.22 MG/DL (0.70-1.30); GLOMERULAR FILTRATION RATE > 60.0 (>49); GLUCOSE, FASTING 119 MG/DL (70-100); POTASSIUM SERUM 4.6 MEQ/L (3.5-5.1); SODIUM LEVEL 141 MEQ/L (136-145)
[2019-12-02] MEDS: TIOTROPIUM INHALER/CAPSULE (SPIRIVA) INH SCH (07:19)
[2019-12-02] MEDS: predniSONE 20 MG TAB PO SCH ×2 (09:00→20:39)
[2019-12-02] MEDS: ASPIRIN 325 MG TAB PO SCH (09:00)
[2019-12-02] MEDS: HEPARIN SOD (PORCINE) 5000UNITS/ML 1ML VIAL/SYRINGE SC SCH ×2 (09:00→20:39)
[2019-12-02] MEDS: MONTELUKAST 10 MG TAB PO SCH (09:00)
[2019-12-02] MEDS: AUGMENTIN BID 400MG/5ML SUSP 50ML BTL PO SCH ×2 (09:00→20:39)
[2019-12-02] MEDS: METOPROLOL TART 50 MG TAB PO SCH (09:00)
[2019-12-02] MEDS: LACTIC ACID 12% LOTION 225 GM BTL TOP SCH (09:48)
[2019-12-02] MEDS: NYSTATIN 100,000 UNITS/GM TOPICAL PWD 15 GM TOP SCH ×2 (09:48→20:40)
[2019-12-02] MEDS: NICOTINE 14 MG/24 HR TRANSDERMAL TD SCH (09:51)
--- NOTE | 2019-12-02 11:00 | IPNPDOC ---
Date Seen The patient was seen on 12/02/19. Progress Note After extensive discussion with the patient yesterday, witnessed by 2 RN's, patient has designated his son, Magan Schuler, to be his health care proxy, in order to safeguard his end of life wishes, as his disagrees with his decision, and is not supportive. Patient was able to understand the consequences of his decisions, and able to express his wishes by writing them on his clipboard. Health care proxy, signed and witnessed, is patient's son. code status: dnr/dni/flying instructor. VS, I&O, 24H, [facility] Vital Signs/I&O Vital Signs Date Time Temp Pulse Resp B/P (MAP) Pulse Ox O2 Delivery O2 Flow Rate FiO2 11/29/19 22:00 96.9 85 20 110/59 (76) 97 11/28/19 06:00 Room Air I&O- Last 24 Hours up to 6 AM 12/02/19 06:00 Intake Total 2650 ml Output Total 1000 ml Balance 1650 ml Laboratory Data 24H LABS Laboratory Tests 2 12/02/19 06:08: Immature Granulocyte % (Auto) 0.7, Neutrophils (%) (Auto) 64.9, Lymphocytes (%) (Auto) 24.6, Monocytes (%) (Auto) 5.2H, Eosinophils (%) (Auto) 3.8H, Basophils (%) (Auto) 0.8, Neutrophils # (Auto) 5.6, Lymphocytes # (Auto) 2.1, Monocytes # (Auto) 0.5, Eosinophils # (Auto) 0.3, Basophils # (Auto) 0.1, Nucleated Red Blood Cells % (auto) 0.0, Anion Gap 6L, Glomerular Filtration Rate > 60.0, Calcium Level 9.3 CBC/BMP Laboratory Tests 12/02/19 06:08 Microbiology Microbiology 11/26/19 Gram Stain - Final, Complete 11/26/19 Wound Culture - Final, Complete Staphylococcus Aureus 11/26/19 Blood Culture - Final, Complete NO GROWTH AFTER 5 DAYS 11/26/19 Blood Culture - Final, Complete NO GROWTH AFTER 5 DAYS 11/25/19 Blood Culture - Final, Complete NO GROWTH AFTER 5 DAYS 11/25/19 Urine Culture - Final, Complete Corynebacterium Species 11/24/19 Blood Culture - Final, Complete Staphylococcus Aureus 11/24/19 Blood Culture - Final, Complete Staphylococcus Aureus SIERRA LIRIANO MD Dec 02, 2019 11:00
[2019-12-03] MEDS: SCOPOLAMINE 1MG TRANSDERMAL PATCH TOP PRN (01:25)
[2019-12-03] MEDS: LEVALBUTEROL 1.25 MG/0.5 ML CONCENTRATE NEB INH SCH ×6 (04:00→23:32)
[2019-12-03 07:04] LABS: BASO # 0.1 10^3/uL (0.0-0.2); EOS # 0.5 10^3/uL (0.0-0.5); EOS % 4.8 % (0.0-3.0); HEMATOCRIT 44.5 % (42.0-52.0); HEMOGLOBIN 13.7 g/dl (13.5-17.5); LYMPH # 1.6 10^3/uL (1.5-5.0); LYMPH % 15.5 % (24.0-44.0); MEAN CORPUSCULAR HEMOGLOBIN 26.3 pg (27.0-33.0); MEAN CORPUSCULAR HGB CONC 30.8 g/dl (32.0-36.5); MEAN CORPUSCULAR VOLUME 85.4 fl (80.0-96.0); MONO # 0.7 10^3/uL (0.0-0.8); MONO % 6.3 % (0.0-5.0); NEUTROPHILS # 7.4 10^3/uL (1.5-8.5); NEUTROPHILS % 71.4 % (36.0-66.0); PLATELET COUNT, AUTOMATED 179 10^3/uL (150-450); RED BLOOD COUNT 5.21 10^6/uL (4.30-6.10); WHITE BLOOD COUNT 10.3 10^3/uL (4.0-10.0)
[2019-12-03] MEDS: TIOTROPIUM INHALER/CAPSULE (SPIRIVA) INH SCH (07:10)
[2019-12-03 07:29] LABS: BLOOD UREA NITROGEN 29 MG/DL (7-18); CALCIUM LEVEL 9.6 MG/DL (8.8-10.2); CARBON DIOXIDE LEVEL 25 MEQ/L (21-32); CHLORIDE LEVEL 106 MEQ/L (98-107); CREATININE FOR GFR 0.98 MG/DL (0.70-1.30); GLOMERULAR FILTRATION RATE > 60.0 (>49); GLUCOSE, FASTING 118 MG/DL (70-100); POTASSIUM SERUM 4.1 MEQ/L (3.5-5.1); SODIUM LEVEL 137 MEQ/L (136-145)
[2019-12-03] MEDS: METOPROLOL TART 50 MG TAB PO SCH (09:00)
[2019-12-03] MEDS: predniSONE 20 MG TAB PO SCH ×2 (09:00→20:26)
[2019-12-03] MEDS: ASPIRIN 325 MG TAB PO SCH (09:00)
[2019-12-03] MEDS: HEPARIN SOD (PORCINE) 5000UNITS/ML 1ML VIAL/SYRINGE SC SCH ×2 (09:00→20:26)
[2019-12-03] MEDS: MONTELUKAST 10 MG TAB PO SCH (09:00)
[2019-12-03] MEDS: AUGMENTIN BID 400MG/5ML SUSP 50ML BTL PO SCH ×3 (09:00→20:34)
[2019-12-03] MEDS: NICOTINE 14 MG/24 HR TRANSDERMAL TD SCH (09:47)
[2019-12-03] MEDS: NYSTATIN 100,000 UNITS/GM TOPICAL PWD 15 GM TOP SCH ×2 (09:48→20:26)
[2019-12-03] MEDS: LACTIC ACID 12% LOTION 225 GM BTL TOP SCH (09:48)
[2019-12-04] MEDS: LEVALBUTEROL 1.25 MG/0.5 ML CONCENTRATE NEB INH SCH ×6 (03:59→23:36)
[2019-12-04] MEDS: TIOTROPIUM INHALER/CAPSULE (SPIRIVA) INH SCH (07:47)
[2019-12-04] MEDS: ASPIRIN 325 MG TAB PO SCH ×2 (09:00→10:42)
[2019-12-04] MEDS: MONTELUKAST 10 MG TAB PO SCH ×2 (09:00→10:43)
[2019-12-04] MEDS: METOPROLOL TART 50 MG TAB PO SCH ×2 (09:00→10:42)
[2019-12-04] MEDS: predniSONE 20 MG TAB PO SCH ×3 (09:00→21:00)
[2019-12-04] MEDS: NICOTINE 14 MG/24 HR TRANSDERMAL TD SCH (10:41)
[2019-12-04] MEDS: NYSTATIN 100,000 UNITS/GM TOPICAL PWD 15 GM TOP SCH ×2 (10:42→22:21)
[2019-12-04] MEDS: HEPARIN SOD (PORCINE) 5000UNITS/ML 1ML VIAL/SYRINGE SC SCH ×2 (10:42→22:20)
[2019-12-04] MEDS: LACTIC ACID 12% LOTION 225 GM BTL TOP SCH (10:43)
[2019-12-05] MEDS: LEVALBUTEROL 1.25 MG/0.5 ML CONCENTRATE NEB INH SCH ×5 (04:21→20:00)
[2019-12-05] MEDS: TIOTROPIUM INHALER/CAPSULE (SPIRIVA) INH SCH (07:21)
[2019-12-05] MEDS: METOPROLOL TART 50 MG TAB PO SCH (09:00)
[2019-12-05] MEDS: ASPIRIN 325 MG TAB PO SCH (09:00)
[2019-12-05] MEDS: predniSONE 20 MG TAB PO SCH ×2 (09:00→20:42)
[2019-12-05] MEDS: MONTELUKAST 10 MG TAB PO SCH (09:00)
[2019-12-05] MEDS: NYSTATIN 100,000 UNITS/GM TOPICAL PWD 15 GM TOP SCH ×2 (10:07→20:42)
[2019-12-05] MEDS: NICOTINE 14 MG/24 HR TRANSDERMAL TD SCH (10:07)
[2019-12-05] MEDS: HEPARIN SOD (PORCINE) 5000UNITS/ML 1ML VIAL/SYRINGE SC SCH ×2 (10:07→20:41)
[2019-12-05] MEDS: LACTIC ACID 12% LOTION 225 GM BTL TOP SCH (10:08)
[2019-12-06] MEDS: LEVALBUTEROL 1.25 MG/0.5 ML CONCENTRATE NEB INH SCH ×7 (00:14→23:46)
[2019-12-06] MEDS: TIOTROPIUM INHALER/CAPSULE (SPIRIVA) INH SCH (07:50)
[2019-12-06] MEDS: METOPROLOL TART 50 MG TAB PO SCH (09:00)
[2019-12-06] MEDS: predniSONE 20 MG TAB PO SCH ×2 (09:00→20:52)
[2019-12-06] MEDS: ASPIRIN 325 MG TAB PO SCH (09:00)
[2019-12-06] MEDS: MONTELUKAST 10 MG TAB PO SCH (09:00)
[2019-12-06] MEDS: NICOTINE 14 MG/24 HR TRANSDERMAL TD SCH (09:08)
[2019-12-06] MEDS: HEPARIN SOD (PORCINE) 5000UNITS/ML 1ML VIAL/SYRINGE SC SCH ×2 (09:08→21:22)
[2019-12-06] MEDS: NYSTATIN 100,000 UNITS/GM TOPICAL PWD 15 GM TOP SCH ×2 (09:08→21:23)
[2019-12-06] MEDS: LACTIC ACID 12% LOTION 225 GM BTL TOP SCH (09:09)
[2019-12-07] MEDS: LEVALBUTEROL 1.25 MG/0.5 ML CONCENTRATE NEB INH SCH ×5 (03:42→19:37)
[2019-12-07] MEDS: TIOTROPIUM INHALER/CAPSULE (SPIRIVA) INH SCH (07:43)
[2019-12-07] MEDS: NICOTINE 14 MG/24 HR TRANSDERMAL TD SCH (10:56)
[2019-12-07] MEDS: LACTIC ACID 12% LOTION 225 GM BTL TOP SCH (10:57)
[2019-12-07] MEDS: HEPARIN SOD (PORCINE) 5000UNITS/ML 1ML VIAL/SYRINGE SC SCH ×2 (10:57→20:23)
[2019-12-07] MEDS: NYSTATIN 100,000 UNITS/GM TOPICAL PWD 15 GM TOP SCH ×2 (10:57→20:23)
[2019-12-07] MEDS: MONTELUKAST 10 MG TAB PO SCH (10:58)
[2019-12-07] MEDS: METOPROLOL TART 50 MG TAB PO SCH (10:58)
[2019-12-07] MEDS: predniSONE 20 MG TAB PO SCH ×2 (10:58→20:20)
[2019-12-07] MEDS: ASPIRIN 325 MG TAB PO SCH (10:58)
[2019-12-08] MEDS: LEVALBUTEROL 1.25 MG/0.5 ML CONCENTRATE NEB INH SCH ×7 (00:11→23:53)
[2019-12-08] MEDS: TIOTROPIUM INHALER/CAPSULE (SPIRIVA) INH SCH (08:29)
[2019-12-08] MEDS: METOPROLOL TART 50 MG TAB PO SCH (09:00)
[2019-12-08] MEDS: ASPIRIN 325 MG TAB PO SCH (09:00)
[2019-12-08] MEDS: predniSONE 20 MG TAB PO SCH ×2 (09:00→20:51)
[2019-12-08] MEDS: MONTELUKAST 10 MG TAB PO SCH (09:00)
[2019-12-08] MEDS: NICOTINE 14 MG/24 HR TRANSDERMAL TD SCH (09:49)
[2019-12-08] MEDS: HEPARIN SOD (PORCINE) 5000UNITS/ML 1ML VIAL/SYRINGE SC SCH ×2 (09:49→20:52)
[2019-12-08] MEDS: NYSTATIN 100,000 UNITS/GM TOPICAL PWD 15 GM TOP SCH ×2 (09:49→20:53)
[2019-12-08] MEDS: LACTIC ACID 12% LOTION 225 GM BTL TOP SCH (09:50)
[2019-12-09] MEDS: LEVALBUTEROL 1.25 MG/0.5 ML CONCENTRATE NEB INH SCH ×6 (03:49→23:43)
[2019-12-09] MEDS: TIOTROPIUM INHALER/CAPSULE (SPIRIVA) INH SCH (07:46)
[2019-12-09] MEDS: NICOTINE 14 MG/24 HR TRANSDERMAL TD SCH (10:38)
[2019-12-09] MEDS: HEPARIN SOD (PORCINE) 5000UNITS/ML 1ML VIAL/SYRINGE SC SCH ×2 (10:38→20:22)
[2019-12-09] MEDS: NYSTATIN 100,000 UNITS/GM TOPICAL PWD 15 GM TOP SCH ×2 (10:39→20:22)
[2019-12-09] MEDS: MONTELUKAST 10 MG TAB PO SCH (10:39)
[2019-12-09] MEDS: LACTIC ACID 12% LOTION 225 GM BTL TOP SCH (10:39)
[2019-12-09] MEDS: predniSONE 20 MG TAB PO SCH (10:40)
[2019-12-09] MEDS: METOPROLOL TART 50 MG TAB PO SCH (10:40)
[2019-12-09] MEDS: ASPIRIN 325 MG TAB PO SCH (10:40)
--- NOTE | 2019-12-09 13:58 | IPNPDOC ---
Text Note Date of Service The patient was seen on 12/09/19. NOTE Subjective: Patient is a 69-year-old male with a PMHx of CVA w/ expressive aphasia and progressive dysphagia (with aspiration risk) who presented to the ER with multiple falls and inability to perform activity of daily living at home. Pat ient was noted to have a left elbow abscess with only going on bursitis culture showing MSSA bacteremia. Patient was admitted under the hospitalist service for further evaluation and treatment. Orthopedic surgery and infectious disease were called on con sultation. Patient was adamant about evening and eventually understood the risks. After discussion with patient and family. Patient was transitioned to comfort measures. MOLST form was updated to reflect this, as well as DNR/DNI and no feeding tube. Patient was seen and examined at the bedside. Appears to be comfortable sitting up in chair Objective: Vitals (See below) General: Sitting up in chair, comfortable, non-verbal, uses clipboard to communicate Full exam not completed Assessment and plan: s/p Left elbow abscess Aspiration 2/2 progressive dysphagia from a history of CVA and chronic atrial fibrillation with prior history of massive hemorrhage CVA with expressive aphasia and progressive dysphagia Chronic venous stasis with ulcers Active smoker Chronic obstructive pulmonary disease (COPD) DVT prophylaxis Plan: - MOLST form updated - DNR / DNI / No feeding tube - Comfort measures - Continue with medications for comfort Disposition: - 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
[2019-12-10] MEDS: LEVALBUTEROL 1.25 MG/0.5 ML CONCENTRATE NEB INH SCH ×5 (04:00→18:33)
[2019-12-10] MEDS: TIOTROPIUM INHALER/CAPSULE (SPIRIVA) INH SCH (08:19)
[2019-12-10] MEDS: MONTELUKAST 10 MG TAB PO SCH (08:34)
[2019-12-10] MEDS: METOPROLOL TART 50 MG TAB PO SCH (08:34)
[2019-12-10] MEDS: NICOTINE 14 MG/24 HR TRANSDERMAL TD SCH ×2 (08:35→08:50)
[2019-12-10] MEDS: predniSONE 20 MG TAB PO SCH (08:35)
[2019-12-10] MEDS: ASPIRIN 325 MG TAB PO SCH (08:35)
[2019-12-10] MEDS: HEPARIN SOD (PORCINE) 5000UNITS/ML 1ML VIAL/SYRINGE SC SCH ×2 (08:49→23:45)
[2019-12-10] MEDS: NYSTATIN 100,000 UNITS/GM TOPICAL PWD 15 GM TOP SCH ×2 (08:50→23:46)
[2019-12-10] MEDS: LACTIC ACID 12% LOTION 225 GM BTL TOP SCH (08:50)
[2019-12-11] MEDS: LEVALBUTEROL 1.25 MG/0.5 ML CONCENTRATE NEB INH SCH ×6 (00:07→18:16)
[2019-12-11] MEDS: TIOTROPIUM INHALER/CAPSULE (SPIRIVA) INH SCH (07:35)
[2019-12-11] MEDS: ASPIRIN 325 MG TAB PO SCH (09:00)
[2019-12-11] MEDS: LACTIC ACID 12% LOTION 225 GM BTL TOP SCH (09:00)
[2019-12-11] MEDS: predniSONE 20 MG TAB PO SCH (09:00)
[2019-12-11] MEDS: MONTELUKAST 10 MG TAB PO SCH (09:00)
[2019-12-11] MEDS: METOPROLOL TART 50 MG TAB PO SCH (09:00)
[2019-12-11] MEDS: NYSTATIN 100,000 UNITS/GM TOPICAL PWD 15 GM TOP SCH ×2 (09:00→21:05)
[2019-12-11] MEDS: HEPARIN SOD (PORCINE) 5000UNITS/ML 1ML VIAL/SYRINGE SC SCH ×2 (10:14→21:05)
[2019-12-11] MEDS: NICOTINE 14 MG/24 HR TRANSDERMAL TD SCH (10:15)
[2019-12-11] MEDS: ATROPINE SULFATE 1% OP SOLN 2 ML BTL SL PRN (21:05)
[2019-12-11] MEDS: SCOPOLAMINE 1MG TRANSDERMAL PATCH TOP PRN (21:06)
[2019-12-12] MEDS: LEVALBUTEROL 1.25 MG/0.5 ML CONCENTRATE NEB INH SCH ×6 (00:36→20:31)
[2019-12-12] MEDS: TIOTROPIUM INHALER/CAPSULE (SPIRIVA) INH SCH (07:18)
[2019-12-12] MEDS: METOPROLOL TART 50 MG TAB PO SCH (09:00)
[2019-12-12] MEDS: MONTELUKAST 10 MG TAB PO SCH (09:00)
[2019-12-12] MEDS: predniSONE 20 MG TAB PO SCH (09:00)
[2019-12-12] MEDS: ASPIRIN 325 MG TAB PO SCH (09:00)
[2019-12-12] MEDS: HEPARIN SOD (PORCINE) 5000UNITS/ML 1ML VIAL/SYRINGE SC SCH ×2 (09:59→21:19)
[2019-12-12] MEDS: NICOTINE 14 MG/24 HR TRANSDERMAL TD SCH (09:59)
[2019-12-12] MEDS: NYSTATIN 100,000 UNITS/GM TOPICAL PWD 15 GM TOP SCH ×2 (10:00→21:19)
[2019-12-12] MEDS: LACTIC ACID 12% LOTION 225 GM BTL TOP SCH (10:00)
[2019-12-12] MEDS: ATROPINE SULFATE 1% OP SOLN 2 ML BTL SL PRN (10:01)
[2019-12-13] MEDS: LEVALBUTEROL 1.25 MG/0.5 ML CONCENTRATE NEB INH SCH ×7 (00:24→23:33)
[2019-12-13] MEDS: TIOTROPIUM INHALER/CAPSULE (SPIRIVA) INH SCH (07:50)
[2019-12-13] MEDS: MONTELUKAST 10 MG TAB PO SCH (09:00)
[2019-12-13] MEDS: predniSONE 20 MG TAB PO SCH (09:00)
[2019-12-13] MEDS: METOPROLOL TART 50 MG TAB PO SCH (09:00)
[2019-12-13] MEDS: ASPIRIN 325 MG TAB PO SCH (09:00)
[2019-12-13] MEDS: HEPARIN SOD (PORCINE) 5000UNITS/ML 1ML VIAL/SYRINGE SC SCH ×2 (09:55→20:37)
[2019-12-13] MEDS: NYSTATIN 100,000 UNITS/GM TOPICAL PWD 15 GM TOP SCH ×2 (09:55→20:37)
[2019-12-13] MEDS: NICOTINE 14 MG/24 HR TRANSDERMAL TD SCH (09:55)
[2019-12-13] MEDS: LACTIC ACID 12% LOTION 225 GM BTL TOP SCH (09:56)
[2019-12-14] MEDS: LEVALBUTEROL 1.25 MG/0.5 ML CONCENTRATE NEB INH SCH ×6 (04:00→23:24)
[2019-12-14] MEDS: TIOTROPIUM INHALER/CAPSULE (SPIRIVA) INH SCH (07:33)
[2019-12-14] MEDS ORDERED: predniSONE 20 MG TAB PO SCH (09:00)
[2019-12-14] MEDS: ASPIRIN 325 MG TAB PO SCH (09:00)
[2019-12-14] MEDS: METOPROLOL TART 50 MG TAB PO SCH (09:00)
[2019-12-14] MEDS: MONTELUKAST 10 MG TAB PO SCH (09:00)
[2019-12-14] MEDS: NICOTINE 14 MG/24 HR TRANSDERMAL TD SCH (09:45)
[2019-12-14] MEDS: HEPARIN SOD (PORCINE) 5000UNITS/ML 1ML VIAL/SYRINGE SC SCH ×2 (09:45→20:16)
[2019-12-14] MEDS: LACTIC ACID 12% LOTION 225 GM BTL TOP SCH (09:46)
[2019-12-14] MEDS: NYSTATIN 100,000 UNITS/GM TOPICAL PWD 15 GM TOP SCH ×2 (09:48→20:16)
[2019-12-15] MEDS: LEVALBUTEROL 1.25 MG/0.5 ML CONCENTRATE NEB INH SCH ×6 (03:57→23:11)
[2019-12-15] MEDS: TIOTROPIUM INHALER/CAPSULE (SPIRIVA) INH SCH ×2 (07:38→08:00)
[2019-12-15] MEDS: ASPIRIN 325 MG TAB PO SCH (07:49)
[2019-12-15] MEDS: MONTELUKAST 10 MG TAB PO SCH (07:50)
[2019-12-15] MEDS: METOPROLOL TART 50 MG TAB PO SCH (07:50)
[2019-12-15] MEDS: NICOTINE 14 MG/24 HR TRANSDERMAL TD SCH (08:56)
[2019-12-15] MEDS: HEPARIN SOD (PORCINE) 5000UNITS/ML 1ML VIAL/SYRINGE SC SCH ×2 (08:56→20:56)
[2019-12-15] MEDS: NYSTATIN 100,000 UNITS/GM TOPICAL PWD 15 GM TOP SCH ×2 (08:56→20:57)
[2019-12-15] MEDS: LACTIC ACID 12% LOTION 225 GM BTL TOP SCH (08:57)
[2019-12-15] MEDS: MORPHINE 10MG/0.5ML ORAL CONCENTRATE SOLUTION U/D SL PRN (20:56)
[2019-12-16] MEDS: LEVALBUTEROL 1.25 MG/0.5 ML CONCENTRATE NEB INH SCH ×6 (03:45→23:20)
[2019-12-16] MEDS: TIOTROPIUM INHALER/CAPSULE (SPIRIVA) INH SCH (08:02)
[2019-12-16] MEDS: METOPROLOL TART 50 MG TAB PO SCH (09:00)
[2019-12-16] MEDS: ASPIRIN 325 MG TAB PO SCH (09:00)
[2019-12-16] MEDS: MONTELUKAST 10 MG TAB PO SCH (09:00)
[2019-12-16] MEDS: NICOTINE 14 MG/24 HR TRANSDERMAL TD SCH (09:58)
[2019-12-16] MEDS: LACTIC ACID 12% LOTION 225 GM BTL TOP SCH (09:58)
[2019-12-16] MEDS: NYSTATIN 100,000 UNITS/GM TOPICAL PWD 15 GM TOP SCH ×2 (09:58→21:01)
[2019-12-16] MEDS: HEPARIN SOD (PORCINE) 5000UNITS/ML 1ML VIAL/SYRINGE SC SCH ×2 (09:58→21:01)
--- NOTE | 2019-12-16 18:16 | IPNPDOC ---
Text Note Date of Service The patient was seen on 12/16/19. NOTE Mr. Schuler is known to this clinical writer from prior hospital stay. He has had stroke in the past. He currently has complications of severe dysphagia and dysarthria with aspiration. He is comfort measures only status. He has chosen to eat and drink as he wishes and accept the consequences. The patient recognizes this clinical writer during exam. The patient has remarkable coarse upper airway breath sounds and wheezes, with even an element of stridor. Speech is generally not intelligible. The patient has morbid central obesity with notable abdominal and umbilical Hernia. Lower extremities show at least 2+ chronic pitting edema with chronic discoloration. The patient continues with his current [employer] status; he is hopeful of receiving [place] hospice services at a alf. VS,Fishbone, I+O VS, Fishbone, I+O Vital Signs Date Time Temp Pulse Resp B/P (MAP) Pulse Ox O2 Delivery O2 Flow Rate FiO2 12/16/19 10:00 2.0 I&O- Last 24 Hours up to 6 AM 12/16/19 06:00 Intake Total 2070 ml Output Total 1030 ml Balance 1040 ml ALYCIA VELASQUEZ MD Dec 16, 2019 18:16
[2019-12-16] MEDS: MORPHINE 10MG/0.5ML ORAL CONCENTRATE SOLUTION U/D SL PRN (21:50)
[2019-12-17] MEDS: LEVALBUTEROL 1.25 MG/0.5 ML CONCENTRATE NEB INH SCH ×6 (03:25→23:59)
[2019-12-17] MEDS: TIOTROPIUM INHALER/CAPSULE (SPIRIVA) INH SCH (07:47)
[2019-12-17] MEDS: HEPARIN SOD (PORCINE) 5000UNITS/ML 1ML VIAL/SYRINGE SC SCH ×2 (10:39→20:18)
[2019-12-17] MEDS: NICOTINE 14 MG/24 HR TRANSDERMAL TD SCH (10:39)
[2019-12-17] MEDS: MONTELUKAST 10 MG TAB PO SCH (10:40)
[2019-12-17] MEDS: LACTIC ACID 12% LOTION 225 GM BTL TOP SCH (10:40)
[2019-12-17] MEDS: NYSTATIN 100,000 UNITS/GM TOPICAL PWD 15 GM TOP SCH ×2 (10:40→20:18)
[2019-12-17] MEDS: ASPIRIN 325 MG TAB PO SCH (10:41)
[2019-12-17] MEDS: METOPROLOL TART 50 MG TAB PO SCH (10:41)
[2019-12-18] MEDS: LEVALBUTEROL 1.25 MG/0.5 ML CONCENTRATE NEB INH SCH ×6 (04:07→23:48)
[2019-12-18] MEDS: TIOTROPIUM INHALER/CAPSULE (SPIRIVA) INH SCH (07:51)
[2019-12-18] MEDS: METOPROLOL TART 50 MG TAB PO SCH (09:00)
[2019-12-18] MEDS: MONTELUKAST 10 MG TAB PO SCH (09:00)
[2019-12-18] MEDS: ASPIRIN 325 MG TAB PO SCH (09:00)
[2019-12-18] MEDS: NICOTINE 14 MG/24 HR TRANSDERMAL TD SCH (10:39)
[2019-12-18] MEDS: LACTIC ACID 12% LOTION 225 GM BTL TOP SCH (10:40)
[2019-12-18] MEDS: NYSTATIN 100,000 UNITS/GM TOPICAL PWD 15 GM TOP SCH ×2 (10:40→20:17)
[2019-12-18] MEDS: HEPARIN SOD (PORCINE) 5000UNITS/ML 1ML VIAL/SYRINGE SC SCH ×2 (10:40→20:17)
[2019-12-18] MEDS: SCOPOLAMINE 1MG TRANSDERMAL PATCH TOP PRN (18:54)
[2019-12-19] MEDS: LEVALBUTEROL 1.25 MG/0.5 ML CONCENTRATE NEB INH SCH ×5 (04:17→20:09)
[2019-12-19] MEDS: TIOTROPIUM INHALER/CAPSULE (SPIRIVA) INH SCH (07:28)
[2019-12-19] MEDS: MONTELUKAST 10 MG TAB PO SCH (07:53)
[2019-12-19] MEDS: METOPROLOL TART 50 MG TAB PO SCH (07:53)
[2019-12-19] MEDS: ASPIRIN 325 MG TAB PO SCH (07:54)
[2019-12-19] MEDS: NICOTINE 14 MG/24 HR TRANSDERMAL TD SCH (08:52)
[2019-12-19] MEDS: NYSTATIN 100,000 UNITS/GM TOPICAL PWD 15 GM TOP SCH ×2 (08:52→20:31)
[2019-12-19] MEDS: HEPARIN SOD (PORCINE) 5000UNITS/ML 1ML VIAL/SYRINGE SC SCH ×2 (08:52→20:31)
[2019-12-19] MEDS: LACTIC ACID 12% LOTION 225 GM BTL TOP SCH (08:53)
[2019-12-20] MEDS: LEVALBUTEROL 1.25 MG/0.5 ML CONCENTRATE NEB INH SCH ×7 (00:32→23:40)
[2019-12-20] MEDS: TIOTROPIUM INHALER/CAPSULE (SPIRIVA) INH SCH (07:34)
[2019-12-20] MEDS: ASPIRIN 325 MG TAB PO SCH (08:10)
[2019-12-20] MEDS: METOPROLOL TART 50 MG TAB PO SCH (08:11)
[2019-12-20] MEDS: MONTELUKAST 10 MG TAB PO SCH (08:11)
[2019-12-20] MEDS: HEPARIN SOD (PORCINE) 5000UNITS/ML 1ML VIAL/SYRINGE SC SCH ×2 (08:11→20:31)
[2019-12-20] MEDS: NICOTINE 14 MG/24 HR TRANSDERMAL TD SCH (08:12)
[2019-12-20] MEDS: LACTIC ACID 12% LOTION 225 GM BTL TOP SCH (08:12)
[2019-12-20] MEDS: NYSTATIN 100,000 UNITS/GM TOPICAL PWD 15 GM TOP SCH ×2 (08:12→20:31)
[2019-12-21] MEDS: LEVALBUTEROL 1.25 MG/0.5 ML CONCENTRATE NEB INH SCH ×5 (04:06→19:27)
[2019-12-21] MEDS: TIOTROPIUM INHALER/CAPSULE (SPIRIVA) INH SCH (07:25)
[2019-12-21] MEDS: MONTELUKAST 10 MG TAB PO SCH (09:00)
[2019-12-21] MEDS: LACTIC ACID 12% LOTION 225 GM BTL TOP SCH (09:00)
[2019-12-21] MEDS: METOPROLOL TART 50 MG TAB PO SCH (09:00)
[2019-12-21] MEDS: NYSTATIN 100,000 UNITS/GM TOPICAL PWD 15 GM TOP SCH ×2 (09:00→21:30)
[2019-12-21] MEDS: ASPIRIN 325 MG TAB PO SCH (09:00)
[2019-12-21] MEDS: NICOTINE 14 MG/24 HR TRANSDERMAL TD SCH (10:01)
[2019-12-21] MEDS: HEPARIN SOD (PORCINE) 5000UNITS/ML 1ML VIAL/SYRINGE SC SCH ×2 (10:01→21:29)
[2019-12-22] MEDS: LEVALBUTEROL 1.25 MG/0.5 ML CONCENTRATE NEB INH SCH ×4 (00:34→11:31)
[2019-12-22] MEDS: TIOTROPIUM INHALER/CAPSULE (SPIRIVA) INH SCH (08:22)
[2019-12-22] MEDS: MONTELUKAST 10 MG TAB PO SCH (08:58)
[2019-12-22] MEDS: METOPROLOL TART 50 MG TAB PO SCH (08:58)
[2019-12-22] MEDS: ASPIRIN 325 MG TAB PO SCH (08:58)
[2019-12-22] MEDS: HEPARIN SOD (PORCINE) 5000UNITS/ML 1ML VIAL/SYRINGE SC SCH ×2 (10:15→21:49)
[2019-12-22] MEDS: NICOTINE 14 MG/24 HR TRANSDERMAL TD SCH (10:15)
[2019-12-22] MEDS: NYSTATIN 100,000 UNITS/GM TOPICAL PWD 15 GM TOP SCH ×2 (10:16→21:49)
[2019-12-22] MEDS: LACTIC ACID 12% LOTION 225 GM BTL TOP SCH (10:17)
[2019-12-22] MEDS ORDERED: LEVALBUTEROL 1.25 MG/0.5 ML CONCENTRATE NEB INH PRN (12:30)
[2019-12-23] MEDS: TIOTROPIUM INHALER/CAPSULE (SPIRIVA) INH SCH (08:18)
[2019-12-23] MEDS: METOPROLOL TART 50 MG TAB PO SCH ×2 (09:00→09:23)
[2019-12-23] MEDS: MONTELUKAST 10 MG TAB PO SCH ×2 (09:00→09:23)
[2019-12-23] MEDS: ASPIRIN 325 MG TAB PO SCH ×2 (09:00→09:22)
[2019-12-23] MEDS: NICOTINE 14 MG/24 HR TRANSDERMAL TD SCH (09:21)
[2019-12-23] MEDS: HEPARIN SOD (PORCINE) 5000UNITS/ML 1ML VIAL/SYRINGE SC SCH ×2 (09:22→21:26)
[2019-12-23] MEDS: NYSTATIN 100,000 UNITS/GM TOPICAL PWD 15 GM TOP SCH ×2 (09:22→21:25)
[2019-12-23] MEDS: LACTIC ACID 12% LOTION 225 GM BTL TOP SCH (09:24)
--- NOTE | 2019-12-23 18:07 | IPNPDOC ---
Date Seen The patient was seen on 12/23/19. Progress Note SUBJECTIVE: In no acute distress, appears comfortable sitting up at bedside chair. Communicates with clipboard. OBJECTIVE: VITAL SIGNS: Please see below PHYSICAL EXAMINATION: GENERAL: In no acute distress, sitting comfortably HEART: Normal S1, S2. Distant. LUNGS: CTAB, no wheezing/r/r ABDOMEN: Morbidly obese, soft, nontender. EXTREMITIES: Trace edema lower ext, weeping DIAGNOSES: Left elbow abscess Aspiration 2/2 progressive dysphagia from a history of CVA and chronic atrial fibrillation with prior history of massive hemorrhage CVA with expressive aphasia and progressive dysphagia Chronic venous stasis with ulcers Active smoker Chronic obstructive pulmonary disease (COPD) DVT prophylaxis PLAN: Comfort measures Continue with medications for comfort Awaiting placement VS, I&O, 24H, Fishbone Vital Signs/I&O Vital Signs Date Time Temp Pulse Resp B/P (MAP) Pulse Ox O2 Delivery O2 Flow Rate FiO2 12/23/19 09:00 0.0 I&O- Last 24 Hours up to 6 AM 12/23/19 05:59 Intake Total 2000 ml Output Total 1250 ml Balance 750 ml Current Medications Current Medications Medications (Trade) Dose Ordered Sig/Clay Route PRN Reason Start Time Stop Time Status Last Admin Dose Admin Amoxicillin/ Clavulanate Potassium (Augmentin 400 Mg/5 ml Susp) 875 mg BID PO 11/28/19 21:00 12/04/19 09:30 DC 12/01/19 08:38 Aspirin (Aspirin) 325 mg DAILY PO 11/26/19 09:00 12/01/19 08:38 Aspirin (Ecotrin) 325 mg DAILY PO 11/26/19 09:00 11/26/19 11:59 DC Atropine Sulfate (Isopto Atropine 1%) 1 drop Q2HP PRN SL TERMINAL SECRETIONS 11/28/19 12:15 12/12/19 10:01 Cetirizine HCl (ZyrTEC) 10 mg DAILY PO 11/28/19 09:00 11/28/19 16:40 DC Dextrose (Dextrose 50%) 25 ml ASDIRECTED PRN IV SEE LABEL COMMENTS 11/24/19 23:15 Furosemide (LASIX injection) 40 mg Q8H IV 11/26/19 11:00 11/27/19 13:54 DC 11/27/19 04:14 Glucagon (Glucagon) 1 mg ASDIRECTED PRN SC SEE LABEL COMMENTS 11/24/19 23:15 Glucose (Glucose) 16 GM ASDIRECTED PRN PO SEE LABEL COMMENTS 11/24/19 23:15 Guaifenesin (Mucinex Tab Er) 600 mg BID PO 11/28/19 09:00 11/28/19 16:40 DC Guaifenesin/ Dextromethorphan (Robitussin Dm) 10 ml Q4HP PRN PO COUGH 11/26/19 12:15 11/28/19 07:11 DC Heparin Sodium (Porcine) (Heparin) 5,000 units Q12H SC 11/25/19 09:00 12/23/19 09:22 Home Med (Med Rec Complete!) ASDIRECTED XX 11/24/19 23:00 11/24/19 22:58 DC Insulin Human Lispro (HumaLOG INSULIN) SEE PROTOCOL TABLE AC SC 11/25/19 07:30 11/28/19 12:04 DC 11/26/19 12:14 Insulin Human Lispro (HumaLOG INSULIN) SEE PROTOCOL TABLE QHS SC 11/24/19 21:00 11/28/19 12:04 DC Lactic Acid (Lac-Hydrin 12% Lotion) feet knees and thighs sc... DAILY TOP 11/26/19 09:00 12/23/19 09:24 Levalbuterol HCl (Xopenex Neb) 1.25 mg Q6HP PRN INH SOB/WHEEZING 12/22/19 12:30 Levalbuterol HCl (Xopenex Neb) 1.25 mg RQ4H INH 11/26/19 12:00 12/22/19 12:30 DC 12/22/19 11:31 Lorazepam (Ativan) 1 mg Q2HP PRN PO ANXIETY 11/28/19 12:15 Methylprednisolone (SOLUmedrol) 60 mg Q6H IV 11/27/19 18:00 11/28/19 12:04 DC 11/28/19 05:44 Metoprolol Tartrate (Lopressor) 50 mg DAILY PO 11/26/19 09:00 12/01/19 08:38 Metoprolol Tartrate (Lopressor) 75 mg BID PO 11/26/19 21:00 11/26/19 10:54 DC Miscellaneous (Unresolved Clarification Entry) SEE LABEL COMMENTS DAILY XX 12/01/19 09:00 12/01/19 09:35 DC Miscellaneous (Unresolved Clarification Entry) SEE LABEL COMMENTS DAILY XX 12/07/19 09:00 12/07/19 12:37 DC Montelukast Sodium (Singulair) 10 mg DAILY PO 11/27/19 09:00 12/01/19 08:38 Morphine Sulfate (Roxanol) 5 mg Q2HP PRN SL SEVERE PAIN (PS 8-10) 11/28/19 12:15 12/16/19 21:50 Nafcillin Sodium 2 gm/Dextrose 50 ml @ 50 mls/hr Q4H IV 11/27/19 10:00 11/28/19 18:07 DC 11/28/19 15:29 Nicotine (Nicoderm Cq 14mg) 1 patch DAILY TD 11/27/19 09:00 12/23/19 09:21 Nystatin (Mycostatin Powder, Nystop) apply under bilate... BID TOP 11/24/19 21:00 12/23/19 09:22 Ondansetron HCl (ZOFRAN INJection) 4 mg Q6HP PRN IV NAUSEA OR VOMITING 11/28/19 12:15 Prednisone (Deltasone Liquid) 20 mg BID PEG 11/27/19 17:00 11/27/19 16:32 DC Prednisone (Deltasone) 20 mg BID PEG 11/27/19 17:00 11/27/19 16:55 DC Prednisone (Deltasone) 20 mg DAILY PO 12/14/19 09:00 12/13/19 15:40 DC Prednisone (Deltasone) 40 mg BID PO 11/28/19 21:00 12/09/19 14:06 DC 12/03/19 20:26 Prednisone (Deltasone) 40 mg DAILY PO 12/10/19 09:00 12/13/19 15:39 DC Scopolamine (Scopolamine) 1 mg Q3DP PRN TOP EXCESSIVE SECRETIONS 11/28/19 12:15 12/18/19 18:54 Sodium Chloride 1,000 ml @ 100 mls/hr Q10H IV 11/24/19 21:01 11/25/19 02:07 DC 11/24/19 21:35 Tiotropium Clio (Spiriva Handihaler) 1 inhalation DAILY@08 INH 11/27/19 08:00 12/23/19 08:18 Vancomycin HCl 500 mg/Dextrose 110 ml @ 110 mls/hr Q12H IV 11/26/19 20:00 11/26/19 12:26 DC Vancomycin HCl 1000 mg/IV Miscellaneous Supplies 1 each/ Dextrose 270 ml @ 270 mls/hr Q12H IV 11/26/19 19:00 11/26/19 12:26 DC Vancomycin HCl 1000 mg/IV Miscellaneous Supplies 1 each/ Dextrose 270 ml @ 270 mls/hr Q1H IV 11/26/19 09:00 11/26/19 10:59 DC 11/26/19 10:12 Vancomycin HCl 1000 mg/IV Miscellaneous Supplies 1 each/ Dextrose 270 ml @ 270 mls/hr Q8H IV 11/26/19 17:00 11/27/19 08:34 DC 11/27/19 01:37 Allergies Coded Allergies: metformin (Verified Adverse Reaction, Intermediate, HTN, 12/07/18) Saige Alfaro MD Dec 23, 2019 18:07
[2019-12-24] MEDS: TIOTROPIUM INHALER/CAPSULE (SPIRIVA) INH SCH (07:29)
[2019-12-24] MEDS: MONTELUKAST 10 MG TAB PO SCH (08:30)
[2019-12-24] MEDS: ASPIRIN 325 MG TAB PO SCH (08:30)
[2019-12-24] MEDS: METOPROLOL TART 50 MG TAB PO SCH (08:30)
[2019-12-24] MEDS: HEPARIN SOD (PORCINE) 5000UNITS/ML 1ML VIAL/SYRINGE SC SCH ×2 (08:37→21:18)
[2019-12-24] MEDS: NICOTINE 14 MG/24 HR TRANSDERMAL TD SCH (08:38)
[2019-12-24] MEDS: NYSTATIN 100,000 UNITS/GM TOPICAL PWD 15 GM TOP SCH ×2 (08:38→21:19)
[2019-12-24] MEDS: LACTIC ACID 12% LOTION 225 GM BTL TOP SCH (08:39)
[2019-12-25] MEDS: TIOTROPIUM INHALER/CAPSULE (SPIRIVA) INH SCH (07:18)
[2019-12-25] MEDS: MONTELUKAST 10 MG TAB PO SCH (09:00)
[2019-12-25] MEDS: METOPROLOL TART 50 MG TAB PO SCH (09:00)
[2019-12-25] MEDS: ASPIRIN 325 MG TAB PO SCH (09:00)
[2019-12-25] MEDS: HEPARIN SOD (PORCINE) 5000UNITS/ML 1ML VIAL/SYRINGE SC SCH (10:03)
[2019-12-25] MEDS: NYSTATIN 100,000 UNITS/GM TOPICAL PWD 15 GM TOP SCH (10:04)
[2019-12-25] MEDS: NICOTINE 14 MG/24 HR TRANSDERMAL TD SCH (10:04)
[2019-12-25] MEDS: LACTIC ACID 12% LOTION 225 GM BTL TOP SCH (10:05)
--- NOTE | 2019-12-25 19:17 | DS.PDOC ---
Discharge Summary General Date of Admission Nov 24, 2019 at 23:01 Date of Discharge 12/25/19 Discharge Summary PROCEDURES PERFORMED DURING STAY: [None]. ADMITTING DIAGNOSES: s/p Left elbow abscess Aspiration 2/2 progressive dysphagia from a history of CVA and chronic atrial fibrillation with prior history of massive hemorrhage CVA with expressive aphasia and progressive dysphagia Chronic venous stasis with ulcers Active smoker Chronic obstructive pulmonary disease (COPD) DISCHARGE DIAGNOSES: s/p Left elbow abscess Aspiration 2/2 progressive dysphagia from a history of CVA and chronic atrial fibrillation with prior history of massive hemorrhage CVA with expressive aphasia and progressive dysphagia Chronic venous stasis with ulcers Active smoker Chronic obstructive pulmonary disease (COPD) COMPLICATIONS/CHIEF COMPLAINT: Weakness. HISTORY OF PRESENT ILLNESS: Patient is a 69-year-old male with a PMHx of CVA w/ expressive aphasia and progressive dysphagia (with aspiration risk) who presented to the ER with multiple falls and inability to perform activity of daily living at home. Patient was noted to have a left elbow abscess with only going on bursitis culture showing MSSA bacteremia. Patient was admitted under the hospitalist service for further evaluation and treatment. Orthopedic surgery and infectious disease were called on consultation. Patient was adamant about evening and eventually understood the risks. After discussion with patient and family. Patient was transitioned to comfort measures. MOLST form was updated to reflect this, as well as DNR/DNI and no feeding tube. HOSPITAL COURSE: Patient was transitioned to comfort measures. MOLST form was u pdated to reflect this, as well as DNR/DNI and no feeding tube. DISCHARGE MEDICATIONS: Please see below. ALLERGIES: Please see below. PHYSICAL EXAMINATION ON DISCHARGE: VITAL SIGNS: Please see below. GENERAL: Patient is awake, alert, oriented to himself with purposeful movements. He has persistent expressive aphasia with slurred speech. No jugular venous distention (JVD) or thyromegaly. Diminished breath sounds with bilateral wheezing. HEART: S1, S2, sinus rhythm. ABDOMEN: Obese, soft, nontender, nondistended. EXTREMITIES: No pitting edema. Chronic venous stasis changes. Multiple excoriations on the forehead and bilateral lower extremities. LABORATORY DATA: Please see below. IMAGING: Reviewed PROGNOSIS: Poor ACTIVITY: [As tolerated]. DIET: Modified DISCHARGE PLAN: Continue palliative care DISPOSITION: [facility]. DISCHARGE CONDITION: [Stable]. TIME SPENT ON DISCHARGE: Greater than 40 minutes. Vital Signs/I&Os Vital Signs Date Time Temp Pulse Resp B/P (MAP) Pulse Ox O2 Delivery O2 Flow Rate FiO2 12/25/19 09:00 2.0 12/24/19 14:30 Nasal Cannula I&O- Last 24 Hours up to 6 AM 12/25/19 06:00 Intake Total 1780 ml Output Total 1425 ml Balance 355 ml Microbiology Microbiology 12/25/19 Respiratory Virus Panel (PCR) ([facility]) - Final, Complete Discharge Medications No Active Prescriptions or Reported Meds Allergies Coded Allergies: metformin (Verified Adverse Reaction, Intermediate, HTN, 12/07/18) PAUL HERNANDEZ DO Dec 25, 2019 19:17
== END 2019-12-25 13:50 | DRG 558 ==
LOC: M ED 20:37 → M ED INP 23:01 → ENRESERV 23:25 → M MSPAV 11-25
PROVIDERS: ADMIT Internal Medicine; ATTEND Internal Medicine
DX: M70.22 Olecranon bursitis, left elbow (principal); I48.20 Chronic atrial fibrillation, unspecified; R78.81 Bacteremia; J68.0 Bronchitis and pneumonitis due to chemicals, gases, fumes and vapors; L02.414 Cutaneous abscess of left upper limb; L03.114 Cellulitis of left upper limb; E11.9 Type 2 diabetes mellitus without complications; R53.81 Other malaise; E66.01 Morbid (severe) obesity due to excess calories; R29.6 Repeated falls; B95.61 Methicillin susceptible Staphylococcus aureus infection as the cause of diseases classified elsewhere; I10 Essential (primary) hypertension; I69.320 Aphasia following cerebral infarction; F17.200 Nicotine dependence, unspecified, uncomplicated; Z79.82 Long term (current) use of aspirin; Z79.84 Long term (current) use of oral hypoglycemic drugs; Z79.899 Other long term (current) drug therapy; Z88.8 Allergy status to other drugs, medicaments and biological substances; I87.2 Venous insufficiency (chronic) (peripheral); Z66 Do not resuscitate; Z51.5 Encounter for palliative care; Z68.39 Body mass index [BMI] 39.0-39.9, adult; I69.291 Dysphagia following other nontraumatic intracranial hemorrhage; R13.19 Other dysphagia

== ENCOUNTER → 2020-01-29 | Outpatient (REF) ==
[~2020-01-29] MED LIST changes: +D31000TA2 PO; +MULTCAP PO
[2020-01-29 16:04] LABS: APPEARANCE, URINE TURBID (CLEAR); BACTERIA, URINE AUTO NEGATIVE (NEGATIVE); BILIRUBIN, URINE AUTO NEGATIVE (NEGATIVE); BLOOD, URINE BLOOD 1+ (NEGATIVE); COLOR, URINE YELLOW (YELLOW); GLUCOSE, URINE (UA) AUTO NEGATIVE (NEGATIVE); KETONE, URINE AUTO NEGATIVE (NEGATIVE); LEUKOCYTE ESTERASE, URINE AUTO 2+ (NEGATIVE); NITRITE, URINE AUTO NEGATIVE (NEGATIVE); PROTEIN, URINE AUTO 2+ mg/dL (NEGATIVE); RBC, URINE AUTO 46 /HPF (0-3); SPECIFIC GRAVITY URINE AUTO 1.013 (1.002-1.035); SQUAMOUS EPITHELIAL CELL UR AU 0 /HPF (0-6); UROBILINOGEN, URINE AUTO 0.2 mg/dL (0.0-2.0); WBC, URINE AUTO TNTC /HPF (0-3)
== END ==
LOC: SKLAB3 15:21
PROVIDERS: ATTEND Internal Medicine
DX: R39.89 Other symptoms and signs involving the genitourinary system (principal)

== ENCOUNTER → 2020-03-18 | Outpatient (REF) | payer OTHER, MEDICARE | LOC: SKLAB3 14:44 | PROVIDERS: ATTEND Internal Medicine | DX: R05 Cough (principal); R09.89 Other specified symptoms and signs involving the circulatory and respiratory systems ==

== ENCOUNTER → 2020-03-19 | Outpatient (REF) | payer MEDICARE, OTHER ==
[2020-03-19 11:49] LABS: HEMATOCRIT 38.2 % (42.0-52.0); HEMOGLOBIN 11.9 g/dl (13.5-17.5); MEAN CORPUSCULAR HEMOGLOBIN 25.6 pg (27.0-33.0); MEAN CORPUSCULAR HGB CONC 31.2 g/dl (32.0-36.5); MEAN CORPUSCULAR VOLUME 82.3 fl (80.0-96.0); PLATELET COUNT, AUTOMATED 145 10^3/uL (150-450); RED BLOOD COUNT 4.64 10^6/uL (4.30-6.10); WHITE BLOOD COUNT 9.3 10^3/uL (4.0-10.0)
[2020-03-19 12:21] LABS: ALBUMIN 2.9 GM/DL (3.2-5.2); BILIRUBIN,TOTAL 0.4 MG/DL (0.2-1.0); CALCIUM LEVEL 9.1 MG/DL (8.8-10.2); CREATININE FOR GFR 1.39 MG/DL (0.70-1.30); GLOMERULAR FILTRATION RATE 53.9 (>49); THYROID STIMULATING HORMONE 1.01 uIU/ML (0.358-3.740)
== END ==
LOC: SKLAB3 10:39
PROVIDERS: ATTEND Internal Medicine
DX: R41.82 Altered mental status, unspecified (principal)

== ENCOUNTER → 2020-04-16 | Outpatient (REF) | LOC: SKLAB3 11:15 | PROVIDERS: ATTEND Internal Medicine | DX: Z20.828 Contact with and (suspected) exposure to other viral communicable diseases (principal) ==

== ENCOUNTER → 2020-04-29 | Outpatient (REF) | LOC: SKLAB3 08:00 | PROVIDERS: ATTEND Internal Medicine | DX: Z20.828 Contact with and (suspected) exposure to other viral communicable diseases (principal) ==

== ENCOUNTER → 2020-05-06 | Outpatient (REF) | LOC: SKLAB3 08:00 | PROVIDERS: ATTEND Internal Medicine | DX: Z20.828 Contact with and (suspected) exposure to other viral communicable diseases (principal) ==

== ENCOUNTER → 2020-05-13 | Outpatient (REF) | payer OTHER, MEDICARE | LOC: SKLAB3 07:08 | PROVIDERS: ATTEND Internal Medicine | DX: Z20.828 Contact with and (suspected) exposure to other viral communicable diseases (principal) ==

== ENCOUNTER → 2020-05-20 | Outpatient (REF) | payer OTHER, MEDICARE | LOC: SKLAB3 10:13 | PROVIDERS: ATTEND Internal Medicine | DX: Z20.828 Contact with and (suspected) exposure to other viral communicable diseases (principal) ==

== ENCOUNTER → 2020-05-21 | Outpatient (REF) | payer OTHER, MEDICARE | LOC: SKLAB7 14:36 | PROVIDERS: ATTEND Internal Medicine | DX: Z20.828 Contact with and (suspected) exposure to other viral communicable diseases (principal) ==

== ENCOUNTER → 2020-05-27 | Outpatient (REF) | payer OTHER, MEDICARE | LOC: SKLAB3 07:08 | PROVIDERS: ATTEND Internal Medicine | DX: Z20.828 Contact with and (suspected) exposure to other viral communicable diseases (principal) ==

== ENCOUNTER → 2020-06-03 | Outpatient (REF) | payer OTHER, MEDICARE | LOC: SKLAB3 07:05 | PROVIDERS: ATTEND Internal Medicine | DX: Z20.828 Contact with and (suspected) exposure to other viral communicable diseases (principal) ==

== ENCOUNTER → 2020-06-10 | Outpatient (REF) | payer OTHER, MEDICARE | LOC: SKLAB3 09:44 | PROVIDERS: ATTEND Internal Medicine | DX: Z11.52 Encounter for screening for COVID-19 (principal) ==

== ENCOUNTER → 2020-06-17 | Outpatient (REF) | payer OTHER, MEDICARE ==
[~2020-06-17] MED LIST changes: -BUPR150T3 PO; +BUPR150T4 PO; +GABA-282 PO; -GABA-843 PO
== END ==
LOC: SKLAB3 10:13
PROVIDERS: ATTEND Internal Medicine
DX: Z20.822 Contact with and (suspected) exposure to COVID-19 (principal)